=== PATIENT | female | born 1950 | race African-American/Black ===

== ENCOUNTER 2017-04-10 15:07 | Inpatient (IN) | payer MEDICARE ==
[~2017-04-10] VITALS: Ht 157.5 cm; Wt 77.3 kg
[2017-04-10] VITALS (10 sets, daily range): BP systolic 81–109; BP diastolic 40–58
[2017-04-10] MEDS ORDERED: GABAPENTIN100 MG ORAL (15:20)
[2017-04-10] MEDS ORDERED: FUROSEMIDE40 MG ORAL (15:20)
[2017-04-10] MEDS ORDERED: ATORVASTATIN CA40 MG ORAL (15:20)
[2017-04-10] MEDS ORDERED: LEXAPRO10 MG ORAL (15:20)
[2017-04-10] MEDS ORDERED: MULTIVITAMINS1 EAC2 ORAL (15:20)
[2017-04-10] MEDS ORDERED: DOCUSATE SODIU100 MG ORAL (15:20)
[2017-04-10] MEDS ORDERED: AMLODIPINE BESY10 MG ORAL (15:20)
[2017-04-10] MEDS ORDERED: ISOSORBIDE MONO60 M1 PO (15:20)
[2017-04-10] MEDS ORDERED: RENVELA0.8 GM ORAL (15:20)
--- NOTE | 2017-04-10 16:01 | Emergency Room Report ---
History of Present Illness General Chief Complaint: General Complaint Source: Patient, Medical Record Present Illness HPI 66YOF BIBEMS from HD center after finishing dialysis c/o urinary incontinence and back pain, middle of LS spine Started after dialysis History of chronic LBP Denies chest pain, SOB, abd pain, nausea/vomiting Allergies: Coded Allergies: No Known Allergies (Unverified , 04/10/17) Patient History Past Medical History: renal disease Past Surgical History: none Pertinent Family History: none Social History: Denies: alcohol use, drug use, smoking Last Menstrual Period: na Now: No Immunizations: UTD Reviewed Nursing Documentation: PMH: Agreed, PSxH: Agreed Nursing Documentation-PMH Past Medical History: No History, Except For Hx Diabetes: Yes Hx Dialysis: Yes Review of Systems All Other Systems: negative except mentioned in HPI Physical Exam Vital Signs Date Time Temp Pulse Resp B/P Pulse Ox O2 Delivery O2 Flow Rate FiO2 04/10/17 14:59 99.9 104 20 144/108 95 Room Air Sp02 EP Interpretation: reviewed, normal General Appearance: normal inspection, well appearing, no apparent distress, alert, GCS 15, non-toxic Head: normocephalic, atraumatic Eyes: bilateral eye EOMI, bilateral eye PERRL ENT: normal ENT inspection, hearing grossly normal, normal voice Neck: normal inspection, full range of motion, supple, no bony tend Respiratory: normal inspection, lungs clear, normal breath sounds, no respiratory distress, no retraction, no wheezing Cardiovascular #1: regular rate, rhythm, no edema Gastrointestinal: normal inspection, normal bowel sounds, non tender, soft, no guarding, no hernia Genitourinary: no CVA tenderness Musculoskeletal: other - Portcath palpable thrill right upper extremity Neurologic: normal inspection, alert, oriented x3, responsive, clinical business manager III-XII nml as tested, motor strength/tone normal, speech normal Psychiatric: normal inspection, judgement/insight normal, mood/affect normal Skin: normal inspection, normal color, no rash Medical Decision Making Diagnostic Impression: Primary Impression: Low back pain Qualified Codes: M54.5 - Low back pain; G89.29 - Other chronic pain Additional Impressions: Dysuria UTI (urinary tract infection) Qualified Codes: N30.01 - Acute cystitis with hematuria Hypotension Qualified Codes: I95.9 - Hypotension, unspecified Sepsis Qualified Codes: A41.9 - Sepsis, unspecified organism ER Course LBP with dysuria, febrile Became hypotensive after IV Vanc Sepsis criteria No leuks. hypotension fluid responsive No AG. K normal. elevated serumCr likely baseline S/p HD today Empiric Abx, tylenol given Blood, Urine Cx pending Has cath on right upper ext, no obvious infection Multiple attempts by registration to identify patient's insurance Patient endorsing different names, states she has Medicare, cant find in database Registration allocated patient to self-pay given delay in admission Endorsed to Dr Ko as panel for tele admit at 909pm EKG Diagnostic Results Rate: tachycardiac Rhythm: NSR ST Segments: other - TWI in AVL, 1 ASA given to the pt in ED: No Rhythm Strip Diag. Results EP Interpretation: yes Rate: 108 Last Vital Signs Date Time Temp Pulse Resp B/P Pulse Ox O2 Delivery O2 Flow Rate FiO2 04/10/17 14:59 99.9 104 20 144/108 95 Room Air Status: improved Disposition: ADMITTED INPATIENT ELEANOR SOARES M.D. Apr 10, 2017 16:01
[2017-04-10] MEDS ORDERED: Morphine Sulfate 2mg/ml Inj IVP ONE (16:15)
[2017-04-10 16:29] LABS: MEAN CORPUSCULAR HEMOGLOBIN 34.6 PG (27.0-31.0); MEAN CORPUSCULAR VOLUME 99 FL (80-99); MEAN PLATELET VOLUME 6.3 FL (6.5-10.1); PLATELET COUNT 206 K/UL (150-450); RED BLOOD COUNT 3.21 M/UL (4.20-5.40); WHITE BLOOD COUNT 8.3 K/UL (4.8-10.8)
[2017-04-10 16:30] LABS: BASOPHILS % (AUTO) 0.6 % (0.0-2.0); EOSINOPHILS % (AUTO) 0.1 % (0.0-3.0); LYMPHOCYTES % (AUTO) 6.3 % (20.0-45.0); MONOCYTES % (AUTO) 2.6 % (1.0-10.0); NEUTROPHILS % (AUTO) 90.4 % (45.0-75.0)
[2017-04-10] MEDS ORDERED: Vancomycin 1 GM in NS 275 ML IV ONE (16:30)
[2017-04-10 16:42] LABS: ALBUMIN/GLOBULIN RATIO 1.1 (1.0-2.7); CALCIUM 9.4 mg/dL (8.6-10.2); CREATININE 3.4 mg/dL (0.5-0.9); GLOMERULAR FILTRATION RATE 13.6 mL/min (>60); POTASSIUM 3.6 mEQ/L (3.4-4.9); TOTAL PROTEIN 8.4 g/dL (6.6-8.7)
[2017-04-10] MEDS ORDERED: Vancomycin 1gm inj IVPB ONE (16:43)
[2017-04-10] MEDS ORDERED: Zosyn 4.5gm inj ONE (16:52)
[2017-04-10] MEDS ORDERED: NS 110 ML ONE (16:53)
[2017-04-10] MEDS ORDERED: NS 275 ML ONE (16:53)
[2017-04-10] MEDS ORDERED: Tubing IV Cassette IV ONE (16:53)
[2017-04-10 17:14] LABS: REFLEX LACTIC ACID YES OR NO YES
[2017-04-10 17:25] LABS: APPEARANCE,URINE VERY CLOUDY; KETONES,URINE NEGATIVE (NEGATIVE); LEUKOCYTE ESTERASE ,URINE 3+ (NEGATIVE); NITRITE,URINE NEGATIVE (NEGATIVE); PH,URINE 8 (4.5-8.0); PROTEIN,URINE 3+ (NEGATIVE); UROBILINOGEN,URINE 1 MG/DL (0.0-1.0)
[2017-04-10 17:46] LABS: RBC,URINE 0-2 /HPF (0 - 2); WBC,URINE TNTC /HPF (0 - 2)
[2017-04-10 17:47] LABS: BACTERIA,URINE MANY /HPF
[2017-04-10] MEDS ORDERED: Miralax 17gm pkt ORAL PRN (21:45)
[2017-04-10] MEDS ORDERED: Mylanta II UD 30ml ORAL PRN (21:45)
[2017-04-10] MEDS ORDERED: LORazepam Inj 2mg/ml 1ml IV PRN (21:45)
[2017-04-10] MEDS ORDERED: Morphine Sulfate 4mg/ml Inj IVP PRN (21:45)
[2017-04-10] MEDS ORDERED: Zolpidem 5mg tab ORAL PRN (21:45)
[2017-04-10] MEDS ORDERED: Piperacillin/Tazobactam 4.5 GM in NS 110 ML IV SCH ×4 (22:00)
[2017-04-11 00:21] VITALS: BP 106/59
[2017-04-11 04:28] VITALS: BP 110/59
[2017-04-11] MEDS: Morphine Sulfate 2mg/ml Inj IVP PRN (04:35)
[2017-04-11 08:15] VITALS: BP 97/50
--- NOTE | 2017-04-11 08:35 | Consultation ---
History of Present Illness General Date patient seen: Apr 11, 2017 Chief Complaint: General Complaint Present Illness Allergies: Coded Allergies: No Known Allergies (Unverified , 04/10/17) Medication History Scheduled Amlodipine Besylate* (Amlodipine Besylate*), 10 MG ORAL BID, (Reported) Atorvastatin Calcium* (Atorvastatin Calcium*), 80 MG ORAL BEDTIME, (Reported) Docusate Sodium* (Docusate Sodium*), 100 MG ORAL TWICE A DAY, (Reported) Escitalopram Oxalate* (Lexapro*), 5 MG ORAL DAILY, (Reported) Furosemide* (Lasix*), 40 MG ORAL TWICE A DAY, (Reported) Gabapentin* (Gabapentin*), 100 MG ORAL QHS, (Reported) Isosorbide Mononitrate (Isosorbide Mononitrate Er), 60 MG PO DAILY, (Reported) Multivitamins* (Multivitamins*), 1 TAB ORAL DAILY, (Reported) Sevelamer Carbonate* (Renvela*), 800 MG ORAL THREE TIMES A DAY, (Reported) Patient History Healthcare decision maker Resuscitation status Full Code Advanced Directive on File No Physical Exam Last 24 Hour Vital Signs Date Time Temp Pulse Resp B/P Pulse Ox O2 Delivery O2 Flow Rate FiO2 04/11/17 08:15 97.5 91 18 97/50 98 Room Air 04/11/17 05:05 98.1 04/11/17 04:28 98.0 87 20 110/59 98 Room Air 04/11/17 04:00 91 04/11/17 00:21 98.1 92 20 106/59 96 Room Air 04/11/17 00:00 91 04/10/17 23:00 98.5 94 16 97/44 100 Room Air 04/10/17 22:07 98.5 94 16 97/44 100 Room Air 04/10/17 21:30 98.5 92 16 102/51 100 Room Air 04/10/17 19:27 101.0 97 16 84/46 100 Room Air 04/10/17 19:05 100 18 81/40 100 Room Air 04/10/17 18:15 100.4 04/10/17 18:15 100.4 100 16 85/45 100 Room Air 04/10/17 18:00 101 16 89/43 100 Room Air 04/10/17 17:45 103 18 88/48 100 Room Air 04/10/17 17:30 106 18 89/45 99 Room Air 04/10/17 17:30 101.0 04/10/17 16:00 101.8 108 19 106/58 100 Room Air 04/10/17 15:25 112 20 109/58 100 Room Air 04/10/17 14:59 99.9 104 20 144/108 95 Room Air Intake and Output 04/10/17 04/11/17 19:00 07:00 Intake Total 295 ml Output Total 100 ml Balance 295 ml -100 ml Intake Oral 0 ml IV Total 295 ml Output Urine Total 100 ml # Voids 1 Laboratory Tests Test 04/10/17 15:55 04/10/17 16:40 04/10/17 18:25 White Blood Count 8.3 K/UL (4.8-10.8) Red Blood Count 3.21 M/UL (4.20-5.40) L Hemoglobin 11.1 G/DL (12.0-16.0) L Hematocrit 31.8 % (37.0-47.0) L Mean Corpuscular Volume 99 FL (80-99) Mean Corpuscular Hemoglobin 34.6 PG (27.0-31.0) H Mean Corpuscular Hemoglobin Concent 35.0 G/DL (32.0-36.0) Red Cell Distribution Width 15.0 % (11.6-14.8) H Platelet Count 206 K/UL (150-450) Mean Platelet Volume 6.3 FL (6.5-10.1) L Neutrophils (%) (Auto) 90.4 % (45.0-75.0) H Lymphocytes (%) (Auto) 6.3 % (20.0-45.0) L Monocytes (%) (Auto) 2.6 % (1.0-10.0) Eosinophils (%) (Auto) 0.1 % (0.0-3.0) Basophils (%) (Auto) 0.6 % (0.0-2.0) Sodium Level 136 mEQ/L (135-145) Potassium Level 3.6 mEQ/L (3.4-4.9) Chloride Level 91 mEQ/L (98-107) L Carbon Dioxide Level 31 mEQ/L (20-30) H Anion Gap 14 (5-15) Blood Urea Nitrogen 23 mg/dL (7-23) Creatinine 3.4 mg/dL (0.5-0.9) H Estimat Glomerular Filtration Rate 13.6 mL/min (>60) Glucose Level 91 mg/dL (74-106) Lactic Acid Level 2.70 mmol/L (0.66-2.22) H 2.30 mmol/L (0.66-2.22) H Calcium Level 9.4 mg/dL (8.6-10.2) Total Bilirubin 0.5 mg/dL (0.0-1.2) Aspartate Amino Transf (AST/SGOT) 16 U/L (5-40) Alanine Aminotransferase (ALT/SGPT) 12 U/L (3-33) Alkaline Phosphatase 151 U/L (35-104) H Total Protein 8.4 g/dL (6.6-8.7) Albumin 4.4 g/dL (3.5-5.2) Globulin 4.0 g/dL Albumin/Globulin Ratio 1.1 (1.0-2.7) Lipase 29 U/L (< 60) Urine Color Pale yellow Urine Appearance Very cloudy Urine pH 8 (4.5-8.0) Urine Specific [place] 1.010 (1.005-1.035) Urine Protein 3+ (NEGATIVE) H Urine Glucose (UA) Negative (NEGATIVE) Urine Ketones Negative (NEGATIVE) Urine Occult Blood 3+ (NEGATIVE) H Urine Nitrite Negative (NEGATIVE) Urine Bilirubin Negative (NEGATIVE) Urine Urobilinogen 1 MG/DL (0.0-1.0) H Urine Leukocyte Esterase 3+ (NEGATIVE) H Urine RBC 0-2 /HPF (0 - 2) Urine WBC Tntc /HPF (0 - 2) H Urine Squamous Epithelial Cells None /LPF (NONE/OCC) Urine Bacteria Many /HPF (NONE) H Microbiology Date/Time Source Procedure Growth Status 04/10/17 16:40 Urine,Clean Catch Urine Culture - Preliminary Resulted Height (Feet): 5 Height (Inches): 2.00 Weight (Pounds): 170 Medications Current Medications Medications (Trade) Dose Ordered Sig/Edda Route PRN Reason Start Time Stop Time Status Last Admin Dose Admin Acetaminophen (Tylenol) 650 mg Q4H PRN ORAL T>100.5 04/10/17 21:45 05/10/17 21:44 Al Hydroxide/Mg Hydroxide (Mylanta II) 30 ml Q6H PRN ORAL dyspepsia 04/10/17 21:45 05/10/17 21:44 Amlodipine Besylate (Norvasc) 10 mg Q12HR ORAL 04/11/17 09:00 05/11/17 08:59 Atorvastatin Calcium (Lipitor) 80 mg BEDTIME ORAL 04/11/17 22:30 05/11/17 22:29 Dextrose (Dextrose 50%) STAT PRN IV Hypoglycemia 04/10/17 21:45 05/10/17 21:44 Docusate Sodium (Colace) 100 mg TWICE A DAY ORAL 04/11/17 09:00 05/11/17 08:59 Escitalopram Oxalate (Lexapro) 5 mg DAILY ORAL 04/11/17 09:00 05/11/17 08:59 Furosemide (Lasix) 40 mg TWICE A DAY ORAL 04/11/17 09:00 05/11/17 08:59 Gabapentin (Neurontin) 100 mg QHS ORAL 04/11/17 21:00 05/11/17 20:59 Heparin Sodium (Porcine) (Heparin 5000 units/ml) 5,000 units EVERY 12 HOURS SUBQ 04/11/17 09:00 05/11/17 08:59 Insulin Aspart (NovoLOG) BEFORE MEALS AND HS SUBQ 04/11/17 11:30 05/11/17 11:29 Lorazepam (Ativan 2mg/ml 1ml) 0.5 mg Q4H PRN IV For Anxiety 04/10/17 21:45 04/17/17 21:44 Morphine Sulfate (Morphine Sulfate) 2 mg Q4H PRN IVP Moderate Pain (Pain Scale 4-6) 04/10/17 21:45 04/17/17 21:44 04/11/17 04:35 Morphine Sulfate (Morphine Sulfate) 4 mg Q4H PRN IVP Severe Pain (Pain Scale 7-10) 04/10/17 21:45 04/17/17 21:44 Multivitamins (Multivitamins) 1 tab DAILY ORAL 04/11/17 09:00 05/11/17 08:59 Ondansetron HCl (Zofran) 4 mg Q6H PRN IVP Nausea & Vomiting 04/10/17 21:45 05/10/17 21:44 Piperacillin Sod/ Tazobactam Sod/ Sodium Chloride (Zosyn/Sodium Chloride) 110 ml @ 220 mls/hr STAT IV 04/10/17 22:00 04/17/17 21:59 04/10/17 16:55 Polyethylene Glycol (Miralax) 17 gm HSPRN PRN ORAL Constipation 04/10/17 21:45 05/10/17 21:44 Sevelamer Carbonate (Renvela) 800 mg THREE TIMES A DAY ORAL 04/11/17 09:00 05/11/17 08:59 Zolpidem Tartrate (Ambien) 5 mg HSPRN PRN ORAL Insomnia 04/10/17 21:45 05/10/17 21:44 Assessment/Plan Assessment/Plan (1) Lumbar DDD (2) Lumbar Spondylosis (3) Lumbar Radiculopathy (4) Muscle spasm (5) ESRD on dialysis seen dictated PATSY MORRISON Apr 11, 2017 08:35
[2017-04-11] MEDS ORDERED: Norco 5mg/325mg tab ORAL PRN (09:00)
[2017-04-11] MEDS ORDERED: Methocarbamol 500mg tab ORAL PRN (09:00)
[2017-04-11] MEDS ORDERED: Furosemide 40mg tab ORAL SCH (09:00)
--- NOTE | 2017-04-11 09:11 | Consultation ---
Consult Note Consult Note asked to evaluate for dialysis management 66YOF BIBEMS from HD center after finishing dialysis c/o urinary incontinence and back pain, middle of LS spine Started after dialysis History of chronic LBP Denies chest pain, SOB, abd pain, nausea/vomiting Past Medical History: renal disease Past Medical History: No History, Except For Hx Diabetes: Yes Hx Dialysis: Yes h/o breast cancer - left mastectomy has a rosamaria cath in right arm has a permacath in right chest Assessment/Plan ESRD on HD M W Fr UTI Intractible back pain HypoTension h/o Breast Ca s/p Chemo and left mastectomy Plan: HD in Am adjust BP meds- WIll review [facility] records for further info ROLANDO AN Apr 11, 2017 09:11
[2017-04-11 09:22] LABS: CALCIUM 8.8 mg/dL (8.6-10.2); CREATININE 4.5 mg/dL (0.5-0.9); GLOMERULAR FILTRATION RATE 11.9 mL/min (>60); POTASSIUM 4.8 mEQ/L (3.4-4.9); TOTAL PROTEIN 6.6 g/dL (6.6-8.7)
[2017-04-11 09:23] LABS: THYROID STIMULATING HORMONE 1.16 uIU/mL (0.300-4.500)
[2017-04-11 09:28] LABS: BASOPHILS % (AUTO) 0.5 % (0.0-2.0); EOSINOPHILS % (AUTO) 1.2 % (0.0-3.0); LYMPHOCYTES % (AUTO) 12.3 % (20.0-45.0); MEAN CORPUSCULAR HEMOGLOBIN 32.9 PG (27.0-31.0); MEAN CORPUSCULAR HGB CONC 32.3 G/DL (32.0-36.0); MEAN CORPUSCULAR VOLUME 102 FL (80-99); MEAN PLATELET VOLUME 6.7 FL (6.5-10.1); MONOCYTES % (AUTO) 6.3 % (1.0-10.0); NEUTROPHILS % (AUTO) 79.6 % (45.0-75.0); PLATELET COUNT 240 K/UL (150-450); RED BLOOD COUNT 2.93 M/UL (4.20-5.40); RED CELL DISTRIBUTION WIDTH 15.1 % (11.6-14.8); WHITE BLOOD COUNT 17.7 K/UL (4.8-10.8)
[2017-04-11] MEDS: Escitalopram Oxalate 5mg tab ORAL SCH (09:31)
[2017-04-11] MEDS: Renvela 800mg Pkt ORAL SCH ×3 (09:31→17:34)
[2017-04-11] MEDS: Docusate 100mg cap ORAL SCH ×2 (09:32→17:34)
[2017-04-11] MEDS: Heparin 5000 units/ml inj SUBQ SCH ×2 (09:38→21:21)
[2017-04-11] MEDS ORDERED: Morphine Sulfate 4mg/ml Inj IVP PRN (09:45)
--- NOTE | 2017-04-11 09:50 | Diagnostic Imaging Report ---
Indication: SOB Technique: One view of the chest Comparison: none Findings: The heart is borderline enlarged. The aorta is tortuous and calcified. Lungs and pleural spaces are clear. There is a right chest tunneled dialysis catheter and right arm PICC. Left axillary surgical clips are noted. Impression: Borderline cardiomegaly No acute cardiopulmonary process
[2017-04-11 11:30] VITALS: BP 101/58
[2017-04-11] MEDS: NovoLOG Insulin Flexpen SUBQ SCH ×3 (12:02→21:22)
--- NOTE | 2017-04-11 12:35 | History and Physical ---
History of Present Illness General Date patient seen: Apr 11, 2017 Reason for Hospitalization: General Complaint Present Illness HPI 66 year old female with hx of ESRF on HD, HTN was brought in [facility] HD center after finishing dialysis c/o urinary incontinence and back pain, Denies chest pain, SOB, abd pain, nausea/vomiting. She was febrile and hypotensive in ER. She was diagnosed to have sepsis and admitted to Telemetry for further evaluation. Allergies: Coded Allergies: No Known Allergies (Unverified , 04/10/17) Medication History Scheduled Amlodipine Besylate* (Amlodipine Besylate*), 10 MG ORAL BID, (Reported) Atorvastatin Calcium* (Atorvastatin Calcium*), 80 MG ORAL BEDTIME, (Reported) Docusate Sodium* (Docusate Sodium*), 100 MG ORAL TWICE A DAY, (Reported) Escitalopram Oxalate* (Lexapro*), 5 MG ORAL DAILY, (Reported) Furosemide* (Lasix*), 40 MG ORAL TWICE A DAY, (Reported) Gabapentin* (Gabapentin*), 100 MG ORAL QHS, (Reported) Isosorbide Mononitrate (Isosorbide Mononitrate Er), 60 MG PO DAILY, (Reported) Multivitamins* (Multivitamins*), 1 TAB ORAL DAILY, (Reported) Sevelamer Carbonate* (Renvela*), 800 MG ORAL THREE TIMES A DAY, (Reported) Patient History Healthcare decision maker Resuscitation status Full Code Advanced Directive on File No Past Medical/Surgical History Past Medical/Surgical History: (1) ESRF (end stage renal failure) (2) HTN (hypertension) Review of Systems All Other Systems: negative except mentioned in HPI Physical Exam General Appearance: WD/WN, no apparent distress Lines, tubes and drains: peripheral HEENT: normocephalic Neck: non-tender, normal alignment Respiratory/Chest: chest wall non-tender, lungs clear Cardiovascular/Chest: normal peripheral pulses Genitourinary/Rectal: normal genital exam Extremities: normal range of motion, non-tender Neurologic: marking clerk II-XII grossly normal Lymphatic: anterior cervical Last 24 Hour Vital Signs Date Time Temp Pulse Resp B/P Pulse Ox O2 Delivery O2 Flow Rate FiO2 04/11/17 10:00 97/53 04/11/17 08:15 97.5 91 18 97/50 98 Room Air 04/11/17 05:05 98.1 04/11/17 04:28 98.0 87 20 110/59 98 Room Air 04/11/17 04:00 91 04/11/17 00:21 98.1 92 20 106/59 96 Room Air 04/11/17 00:00 91 04/10/17 23:00 98.5 94 16 97/44 100 Room Air 04/10/17 22:07 98.5 94 16 97/44 100 Room Air 04/10/17 21:30 98.5 92 16 102/51 100 Room Air 04/10/17 19:27 101.0 97 16 84/46 100 Room Air 04/10/17 19:05 100 18 81/40 100 Room Air 04/10/17 18:15 100.4 04/10/17 18:15 100.4 100 16 85/45 100 Room Air 04/10/17 18:00 101 16 89/43 100 Room Air 04/10/17 17:45 103 18 88/48 100 Room Air 04/10/17 17:30 106 18 89/45 99 Room Air 04/10/17 17:30 101.0 04/10/17 16:00 101.8 108 19 106/58 100 Room Air 04/10/17 15:25 112 20 109/58 100 Room Air 04/10/17 14:59 99.9 104 20 144/108 95 Room Air Intake and Output 04/10/17 04/11/17 19:00 07:00 Intake Total 295 ml Output Total 100 ml Balance 295 ml -100 ml Intake Oral 0 ml IV Total 295 ml Output Urine Total 100 ml # Voids 1 Laboratory Tests Test 04/10/17 15:55 04/10/17 16:40 04/10/17 18:25 04/11/17 08:15 White Blood Count 8.3 K/UL (4.8-10.8) 17.7 K/UL (4.8-10.8) #H Red Blood Count 3.21 M/UL (4.20-5.40) L 2.93 M/UL (4.20-5.40) L Hemoglobin 11.1 G/DL (12.0-16.0) L 9.6 G/DL (12.0-16.0) L Hematocrit 31.8 % (37.0-47.0) L 29.9 % (37.0-47.0) L Mean Corpuscular Volume 99 FL (80-99) 102 FL (80-99) H Mean Corpuscular Hemoglobin 34.6 PG (27.0-31.0) H 32.9 PG (27.0-31.0) H Mean Corpuscular Hemoglobin Concent 35.0 G/DL (32.0-36.0) 32.3 G/DL (32.0-36.0) Red Cell Distribution Width 15.0 % (11.6-14.8) H 15.1 % (11.6-14.8) H Platelet Count 206 K/UL (150-450) 240 K/UL (150-450) Mean Platelet Volume 6.3 FL (6.5-10.1) L 6.7 FL (6.5-10.1) Neutrophils (%) (Auto) 90.4 % (45.0-75.0) H 79.6 % (45.0-75.0) H Lymphocytes (%) (Auto) 6.3 % (20.0-45.0) L 12.3 % (20.0-45.0) L Monocytes (%) (Auto) 2.6 % (1.0-10.0) 6.3 % (1.0-10.0) Eosinophils (%) (Auto) 0.1 % (0.0-3.0) 1.2 % (0.0-3.0) Basophils (%) (Auto) 0.6 % (0.0-2.0) 0.5 % (0.0-2.0) Sodium Level 136 mEQ/L (135-145) 138 mEQ/L (135-145) Potassium Level 3.6 mEQ/L (3.4-4.9) 4.8 mEQ/L (3.4-4.9) Chloride Level 91 mEQ/L (98-107) L 98 mEQ/L (98-107) Carbon Dioxide Level 31 mEQ/L (20-30) H 27 mEQ/L (20-30) Anion Gap 14 (5-15) 13 (5-15) Blood Urea Nitrogen 23 mg/dL (7-23) 29 mg/dL (7-23) H Creatinine 3.4 mg/dL (0.5-0.9) H 4.5 mg/dL (0.5-0.9) H Estimat Glomerular Filtration Rate 13.6 mL/min (>60) 11.9 mL/min (>60) Glucose Level 91 mg/dL (74-106) 175 mg/dL (74-106) H Lactic Acid Level 2.70 mmol/L (0.66-2.22) H 2.30 mmol/L (0.66-2.22) H Calcium Level 9.4 mg/dL (8.6-10.2) 8.8 mg/dL (8.6-10.2) Total Bilirubin 0.5 mg/dL (0.0-1.2) 0.5 mg/dL (0.0-1.2) Aspartate Amino Transf (AST/SGOT) 16 U/L (5-40) 19 U/L (5-40) Alanine Aminotransferase (ALT/SGPT) 12 U/L (3-33) 10 U/L (3-33) Alkaline Phosphatase 151 U/L (35-104) H 120 U/L (35-104) H Total Protein 8.4 g/dL (6.6-8.7) 6.6 g/dL (6.6-8.7) Albumin 4.4 g/dL (3.5-5.2) 3.3 g/dL (3.5-5.2) L Globulin 4.0 g/dL 3.3 g/dL Albumin/Globulin Ratio 1.1 (1.0-2.7) 1.0 (1.0-2.7) Lipase 29 U/L (< 60) Urine Color Pale yellow Urine Appearance Very cloudy Urine pH 8 (4.5-8.0) Urine Specific [place] 1.010 (1.005-1.035) Urine Protein 3+ (NEGATIVE) H Urine Glucose (UA) Negative (NEGATIVE) Urine Ketones Negative (NEGATIVE) Urine Occult Blood 3+ (NEGATIVE) H Urine Nitrite Negative (NEGATIVE) Urine Bilirubin Negative (NEGATIVE) Urine Urobilinogen 1 MG/DL (0.0-1.0) H Urine Leukocyte Esterase 3+ (NEGATIVE) H Urine RBC 0-2 /HPF (0 - 2) Urine WBC Tntc /HPF (0 - 2) H Urine Squamous Epithelial Cells None /LPF (NONE/OCC) Urine Bacteria Many /HPF (NONE) H Thyroid Stimulating Hormone (TSH) 1.160 uIU/mL (0.300-4.500) Microbiology Date/Time Source Procedure Growth Status 04/10/17 16:40 Urine,Clean Catch Urine Culture - Preliminary Resulted Height (Feet): 5 Height (Inches): 2.00 Weight (Pounds): 170 Medications Current Medications Medications (Trade) Dose Ordered Sig/Edda Route PRN Reason Start Time Stop Time Status Last Admin Dose Admin Acetaminophen (Tylenol) 650 mg Q4H PRN ORAL T>100.5 04/10/17 21:45 05/10/17 21:44 Acetaminophen/ Hydrocodone Bitart ([place] 5/325) 1 tab Q4H PRN ORAL Severe Pain (Pain Scale 7-10) 04/11/17 09:00 04/18/17 08:59 04/11/17 12:11 Amlodipine Besylate (Norvasc) 10 mg DAILY ORAL 04/11/17 10:00 05/11/17 09:59 Atorvastatin Calcium (Lipitor) 80 mg BEDTIME ORAL 04/11/17 22:30 05/11/17 22:29 Dextrose (Dextrose 50%) STAT PRN IV Hypoglycemia 04/10/17 21:45 05/10/17 21:44 Docusate Sodium (Colace) 100 mg TWICE A DAY ORAL 04/11/17 09:00 05/11/17 08:59 04/11/17 09:32 Escitalopram Oxalate (Lexapro) 5 mg DAILY ORAL 04/11/17 09:00 05/11/17 08:59 04/11/17 09:31 Gabapentin (Neurontin) 100 mg QHS ORAL 04/11/17 21:00 05/11/17 20:59 Heparin Sodium (Porcine) (Heparin 5000 units/ml) 5,000 units EVERY 12 HOURS SUBQ 04/11/17 09:00 05/11/17 08:59 04/11/17 09:38 Insulin Aspart (NovoLOG) BEFORE MEALS AND HS SUBQ 04/11/17 11:30 05/11/17 11:29 04/11/17 12:02 Lorazepam (Ativan 2mg/ml 1ml) 0.5 mg Q4H PRN IV For Anxiety 04/10/17 21:45 04/17/17 21:44 Methocarbamol (Robaxin) 500 mg Q8H PRN ORAL muscle spasm 04/11/17 09:00 05/11/17 08:59 Morphine Sulfate (Morphine Sulfate) 2 mg Q4H PRN IVP Moderate Pain (Pain Scale 4-6) 04/10/17 21:45 04/17/17 21:44 04/11/17 04:35 Morphine Sulfate (Morphine Sulfate) 4 mg Q4H PRN IVP breakthrough Pain 04/11/17 09:45 04/18/17 09:44 Multivitamins (Multivitamins) 1 tab DAILY ORAL 04/11/17 09:00 05/11/17 08:59 04/11/17 09:31 Ondansetron HCl (Zofran) 4 mg Q6H PRN IVP Nausea & Vomiting 04/10/17 21:45 05/10/17 21:44 Pantoprazole (Protonix) 40 mg DAILY ORAL 04/11/17 10:00 05/11/17 09:59 04/11/17 11:59 Polyethylene Glycol (Miralax) 17 gm HSPRN PRN ORAL Constipation 04/10/17 21:45 05/10/17 21:44 Sevelamer Carbonate (Renvela) 800 mg THREE TIMES A DAY ORAL 04/11/17 09:00 05/11/17 08:59 04/11/17 09:31 Zolpidem Tartrate (Ambien) 5 mg HSPRN PRN ORAL Insomnia 04/10/17 21:45 05/10/17 21:44 Assessment/Plan Problem List: (1) Sepsis ICD Codes: A41.9 - Sepsis, unspecified organism SNOMED: 00209209 Qualifiers: Qualified Codes: A41.9 - Sepsis, unspecified organism (2) UTI (urinary tract infection) ICD Codes: N39.0 - Urinary tract infection, site not specified SNOMED: 90726990 Qualifiers: Qualified Codes: N30.01 - Acute cystitis with hematuria (3) Hypotension ICD Codes: I95.9 - Hypotension, unspecified SNOMED: 40921480 Qualifiers: Qualified Codes: I95.9 - Hypotension, unspecified (4) ESRF (end stage renal failure) ICD Codes: N18.6 - End stage renal disease SNOMED: 80256966 (5) Low back pain ICD Codes: M54.5 - Low back pain SNOMED: 696530936 Qualifiers: Qualified Codes: M54.5 - Low back pain; G89.29 - Other chronic pain (6) HTN (hypertension) ICD Codes: I10 - Essential (primary) hypertension SNOMED: 28178641 Assessment/Plan pancultures IV abx HD by nephrology pain management monitor BP hold antihypertensives for bp less than 130 dvt prophylaxis. MICHAEL YEBOAH Apr 11, 2017 12:34
--- NOTE | 2017-04-11 15:53 | Diagnostic Imaging Report ---
Indication: PAIN Technique: 4 views of the lumbar spine Comparison: None Findings: Bony alignment is normal. Vertebral body heights are preserved. Disc spaces are preserved. Pedicles are intact. Sacral arches are preserved. Sacroiliac joint spaces are preserved. There is facet degeneration at L4-5 Impression: No acute process Mild degenerative change
[2017-04-11 16:27] VITALS: BP 141/70
--- NOTE | 2017-04-11 16:49 | Cardiology Report ---
APPROVED REPORT EKG Measurement Heart [id number] Sinus tachycardia Biatrial enlargement Left axis deviation Anterior infarct, age undetermined T wave abnormality, consider lateral ischemia Abnormal ECG
[2017-04-11 20:21] VITALS: BP 100/56
[2017-04-11] MEDS ORDERED: Atorvastatin 80mg tab ORAL SCH (22:30)
[2017-04-12 00:22] VITALS: BP 113/63
[2017-04-12 04:20] VITALS: BP 114/65
--- NOTE | 2017-04-12 04:45 | Consultation ---
DATE OF CONSULTATION: 04/11/2017 PAIN MANAGEMENT CONSULTATION CONSULTING PHYSICIAN: Soraida Oliveira M.D. REFERRING PHYSICIAN: Larry Ko M.D. PHYSICIAN FREIGHT CLAIM INVESTIGATOR: Barbara Ayala CHIEF COMPLAINT: Back pain. HISTORY OF PRESENT ILLNESS: The patient is a 67-year-old female, who has been seen for initial comprehensive pain management consultation here in [facility] in the telemetry floor. At this time, the patient has been admitted under the care of Dr. Ko due to sepsis. The patient reports that she has been having low back pain for the past year, however, over the past month in the last 2 days, it has become constant, describing the pain as a 10/10 pressure, radiating down bilateral lower extremities, increasing with sitting and reducing with standing. The patient reports that she has end-stage renal disease, on dialysis, reports that the pain worsens after dialysis and was admitted. At this time, she is on morphine 3 to 4 mg IV every 4 hours as needed for dxcvwony-gi-bsojga pain. At this time, we were consulted so that the patient would have adequate pain control while here in the hospital for fast recovery. PAST MEDICAL HISTORY: End-stage renal disease, coronary artery disease, diabetes mellitus, and hypertension. PAST SURGICAL HISTORY: Laparotomy and knee surgery. ALLERGIES: No known drug allergies. MEDICATIONS: Amlodipine, atorvastatin, docusate, Lexapro, Neurontin, multivitamin, and Dahlen. SOCIAL HISTORY: Denies smoking, tobacco, drinking alcohol, and IV drug abuse. REVIEW OF SYSTEMS: Denies rash, fever, chills, sweating, dizziness, drowsiness, blurred vision, sore throat, or change in her weight. No shortness of breath or chest pain. No nausea, vomiting, diarrhea, or blood in the stool or urine. No bowel or bladder incontinence. No dysuria. She is complaining of low back pain. PHYSICAL EXAMINATION: GENERAL: Alert, awake, and oriented. VITAL SIGNS: Blood pressure 97/50, heart rate is 91, oxygen saturation 98%, respirations 18, and temperature 97.5 degrees Fahrenheit. Height is 5 feet and weight is 170 pounds. HEENT: PERRLA. NECK: Range of motion is full in all directions. No tenderness to paracervical muscles. No adenopathy. LUNGS: Clear. HEART: Regular. ABDOMEN: Obese. BACK: Range of motion is decreased due to the patient's condition. Tenderness to paraspinal muscles, trapezius, or rhomboid muscles. EXTREMITIES: Upper extremity range of motion is full in all directions. Motor is intact. No cyanosis. No clubbing. No edema. Sensory is intact. Reflexes are not obtainable. No adenopathy. Lower extremity range of motion is decreased due to the patient's pain and condition with motor being 4/5 in all muscles bilaterally. No cyanosis. No clubbing. Sensory is intact. Reflexes are not obtainable. No adenopathy. ASSESSMENT AND PLAN: This is a 67-year-old female with lumbar degenerative disease, lumbar spondylosis and radiculopathy, muscle spasm, and end-stage renal disease, on hemodialysis. Recently continued on morphine 2 mg IV every 4 hours as needed for moderate pain, morphine 4 mg IV will be changed to every 4 hours for breakthrough pain. We will start the patient on Atalissa 5/325 mg tablet every 6 hours as needed for severe pain and Robaxin 500 mg tablet every 8 hours as needed for muscle spasm. We will order an x-ray of the lumbar spine to rule out any further pathology in the lower back. The patient was discussed with Dr. Oliveira and Dr. Oliveira concurred. We will follow the patient. Thank you very much for the courtesy of this consultation. Soraida Oliveira M.D. YARA Ayala DR: JOHANNA JOB#: [id number] CC: ANTOINE
[2017-04-12] MEDS: NovoLOG Insulin Flexpen SUBQ SCH ×4 (06:30→22:16)
[2017-04-12 08:29] VITALS: BP 128/70
--- NOTE | 2017-04-12 08:39 | General Progress Note ---
Assessment/Plan Assessment/Plan (1) Lumbar DDD (2) Lumbar Spondylosis (3) Lumbar Radiculopathy (4) Muscle spasm (5) ESRD on dialysis We will continue Morphine and [place] as needed. D/w Dr. Oliveira and he concurred. Subjective Date patient seen: Apr 12, 2017 Time patient seen: 07:15 Constitutional: Reports: weakness HEENT: Reports: no symptoms Cardiovascular: Reports: no symptoms Respiratory: Reports: no symptoms Gastrointestinal/Abdominal: Reports: no symptoms Genitourinary: Reports: no symptoms Neurologic/Psychiatric: Reports: weakness Endocrine: Reports: no symptoms Hematologic/Lymphatic: Reports: no symptoms Allergies: Coded Allergies: No Known Allergies (Unverified , 04/10/17) Subjective Pt continues to have pain which has been tolerated on the Morphine and [place] as needed. Xray was reviewed with pt. She will be having HD today. Objective Last 24 Hour Vital Signs Date Time Temp Pulse Resp B/P Pulse Ox O2 Delivery O2 Flow Rate FiO2 04/12/17 08:29 97.0 80 18 128/70 97 Room Air 04/12/17 04:20 97.7 80 20 114/65 100 Room Air 04/12/17 04:00 80 04/12/17 00:22 97.0 94 20 113/63 100 Room Air 04/12/17 00:00 83 04/11/17 20:21 97.9 80 20 100/56 98 Room Air 04/11/17 20:00 80 04/11/17 16:27 97.5 82 18 141/70 97 Room Air 04/11/17 12:00 80 04/11/17 11:30 97.8 80 20 101/58 96 Room Air 04/11/17 10:00 97/53 Intake and Output 04/11/17 04/12/17 19:00 07:00 Intake Total 360 ml Output Total 100 ml Balance 360 ml -100 ml Intake Oral 360 ml Output Urine Total 100 ml # Voids 1 1 Height (Feet): 5 Height (Inches): 2.00 Weight (Pounds): 176 General Appearance: no apparent distress, alert EENT: PERRL/EOMI, normal ENT inspection Neck: normal alignment, supple Cardiovascular: normal rate, regular rhythm Respiratory/Chest: lungs clear, normal breath sounds Abdomen: non tender, soft Extremities: non-tender Edema: trace edema Neurologic: alert, oriented x 3 Skin: warm/dry Objective Procedure: XRAY L Spine Min 4v Indication: PAIN Technique: 4 views of the lumbar spine Comparison: None Findings: Bony alignment is normal. Vertebral body heights are preserved. Disc spaces are preserved. Pedicles are intact. Sacral arches are preserved. Sacroiliac joint spaces are preserved. There is facet degeneration at L4-5 Impression: No acute process Mild degenerative change PATSY MORRISON Apr 12, 2017 08:39
[2017-04-12 08:54] LABS: BASOPHILS % (AUTO) 0.6 % (0.0-2.0); EOSINOPHILS % (AUTO) 2.4 % (0.0-3.0); LYMPHOCYTES % (AUTO) 25.6 % (20.0-45.0); MEAN CORPUSCULAR HEMOGLOBIN 32.7 PG (27.0-31.0); MEAN CORPUSCULAR HGB CONC 31.8 G/DL (32.0-36.0); MEAN CORPUSCULAR VOLUME 103 FL (80-99); MEAN PLATELET VOLUME 6.4 FL (6.5-10.1); MONOCYTES % (AUTO) 9.7 % (1.0-10.0); NEUTROPHILS % (AUTO) 61.8 % (45.0-75.0); PLATELET COUNT 262 K/UL (150-450); RED BLOOD COUNT 2.99 M/UL (4.20-5.40); RED CELL DISTRIBUTION WIDTH 15.2 % (11.6-14.8); WHITE BLOOD COUNT 12.3 K/UL (4.8-10.8)
[2017-04-12] MEDS ORDERED: Dyna-Hex 2% Top Sol 8oz TOPIC SCH (09:00)
[2017-04-12 09:16] LABS: ALANINE AMINOTRANSFERASE 10 U/L (3-33); ANION GAP 12 (5-15); ASPARTATE AMINO TRANSFERASE 18 U/L (5-40); CALCIUM 10.3 mg/dL (8.6-10.2); CARBON DIOXIDE 27 mEQ/L (20-30); CHLORIDE 95 mEQ/L (98-107); CHOLESTEROL 249 mg/dL (< 200); CHOLESTEROL/HDL RATIO 6.9 (3.3-4.4); CREATININE 5.2 mg/dL (0.5-0.9); CRP QUANT 7.7 mg/dL (< 0.5); GLOMERULAR FILTRATION RATE 10.1 mL/min (>60); HEMOLYSIS 3; LDL CHOLESTEROL (CALC.) 167 mg/dL (60-99); MAGNESIUM 1.9 mg/dL (1.7-2.5); PHOSPHORUS 5.1 mg/dL (2.5-4.8); SODIUM 134 mEQ/L (135-145); TOTAL PROTEIN 6.8 g/dL (6.6-8.7)
[2017-04-12 09:18] LABS: FERRITIN 1285 ng/mL (13-150); INR 1.1 (0.9-1.1); PROTHROMBIN TIME 11.2 SEC (9.30-11.50); THYROID STIMULATING HORMONE 0.887 uIU/mL (0.300-4.500)
[2017-04-12 09:24] LABS: HEMOLYSIS 2; IRON 65 ug/dL (37-145); TOTAL IRON BINDING CAPACITY 148 ug/dL (250-400)
[2017-04-12 09:51] LABS: HEMOGLOBIN A1C 5.6 % (< 6.0)
[2017-04-12 10:32] LABS: ERYTHROCYTE SEDIMENTATION RATE 67 MM/HR (0-30); PATH BLOOD SMEAR/OMC SENT TO PATHOLOGIST
[2017-04-12 10:51] LABS: RETICULOCYTE COUNT 2.7 % (0.0-2.0)
[2017-04-12 11:19] LABS: BAND NEUTROPHILS % (MANUAL) 0 % (0-8); BASOPHILS % (MANUAL) 1 % (0-2); EOSINOPHILS % (MANUAL) 2 % (0-3); LYMPHOCYTES % (MANUAL) 24 % (20-45); NEUTROPHILS % (MANUAL) 65 % (45-75); PLATELET ESTIMATE ADEQUATE; PLATELET MORPHOLOGY NORMAL; TOTAL CELLS COUNTED 100
[2017-04-12 11:20] LABS: ANISOCYTOSIS 1+
[2017-04-12] MEDS: Docusate 100mg cap ORAL SCH ×2 (12:04→18:37)
[2017-04-12] MEDS: Escitalopram Oxalate 5mg tab ORAL SCH (12:05)
[2017-04-12] MEDS: Heparin 5000 units/ml inj SUBQ SCH ×2 (12:10→22:15)
[2017-04-12] MEDS: Renvela 800mg Pkt ORAL SCH ×3 (12:12→18:37)
[2017-04-12 12:14] VITALS: BP 124/66
--- NOTE | 2017-04-12 14:21 | General Progress Note ---
Assessment/Plan Status: stable Status Narrative Currently on HD , tolerating well. . Assessment/Plan Status; ESRD on HD M W Fr UTI Intractible back pain HypoTension h/o Breast Ca s/p Chemo and left mastectomy Plan: HD in process- adjust BP meds- Per PMD , consultants Subjective ROS Limited/Unobtainable: No Allergies: Coded Allergies: No Known Allergies (Unverified , 04/10/17) Objective Last 24 Hour Vital Signs Date Time Temp Pulse Resp B/P Pulse Ox O2 Delivery O2 Flow Rate FiO2 04/12/17 12:14 97.0 75 18 124/66 98 Room Air 04/12/17 12:00 88 04/12/17 11:10 Room Air 04/12/17 08:29 97.0 80 18 128/70 97 Room Air 04/12/17 08:25 Room Air 04/12/17 08:00 84 04/12/17 04:20 97.7 80 20 114/65 100 Room Air 04/12/17 04:00 80 04/12/17 00:22 97.0 94 20 113/63 100 Room Air 04/12/17 00:00 83 04/11/17 20:21 97.9 80 20 100/56 98 Room Air 04/11/17 20:00 80 04/11/17 16:27 97.5 82 18 141/70 97 Room Air Intake and Output 04/11/17 04/12/17 19:00 07:00 Intake Total 360 ml Output Total 100 ml Balance 360 ml -100 ml Intake Oral 360 ml Output Urine Total 100 ml # Voids 1 1 Laboratory Tests 04/12/17 08:00: White Blood Count 12.3H, Red Blood Count 2.99L, Hemoglobin 9.8L, Hematocrit 30.8L, Mean Corpuscular Volume 103H, Mean Corpuscular Hemoglobin 32.7H, Mean Corpuscular Hemoglobin Concent 31.8L, Red Cell Distribution Width 15.2H, Platelet Count 262, Mean Platelet Volume 6.4L, Neutrophils (%) (Auto) 61.8, Lymphocytes (%) (Auto) 25.6, Monocytes (%) (Auto) 9.7, Eosinophils (%) (Auto) 2.4, Basophils (%) (Auto) 0.6, Differential Total Cells Counted 100, Neutrophils % (Manual) 65, Lymphocytes % (Manual) 24, Monocytes % (Manual) 8, Eosinophils % (Manual) 2, Basophils % (Manual) 1, Band Neutrophils 0, Platelet Estimate Adequate, Platelet Morphology Normal, Anisocytosis 1+, Erythrocyte Sedimentation Rate 67H, Reticulocyte Count 2.7H, Prothrombin Time 11.2, Prothromb Time International Ratio 1.1, Activated Partial Thromboplast Time 29, Sodium Level 134L, Potassium Level 5.0H, Chloride Level 95L, Carbon Dioxide Level 27, Anion Gap 12, Blood Urea Nitrogen 39H, Creatinine 5.2H, Estimat Glomerular Filtration Rate 10.1, Glucose Level 111H, Hemoglobin A1c 5.6, Calcium Level 10.3H, Phosphorus Level 5.1H, Magnesium Level 1.9, Iron Level 65, Total Iron Binding Capacity 148L, Percent Iron Saturation 44, Unsaturated Iron Binding 83L, Ferritin 1285H, Total Bilirubin 0.4, Gamma Glutamyl Transpeptidase 28, Aspartate Amino Transf (AST/SGOT) 18, Alanine Aminotransferase (ALT/SGPT) 10 , Alkaline Phosphatase 118H, Lactate Dehydrogenase 182, Total Creatine Kinase 224H, C-Reactive Protein, Quantitative 7.7H, Pro-B-Type Natriuretic Peptide 8234H, Total Protein 6.8, Albumin 3.4L, Globulin 3.4, Albumin/Globulin Ratio 1.0 , Triglycerides Level 232H, Cholesterol Level 249H, LDL Cholesterol 167H, HDL Cholesterol 36, Cholesterol/HDL Ratio 6.9H, Carcinoembryonic Antigen 3.8H, Vitamin B12 Level 471, Folate [Pending], Thyroid Stimulating Hormone (TSH) 0.887 Height (Feet): 5 Height (Inches): 2.00 Weight (Pounds): 176 General Appearance: no apparent distress Respiratory/Chest: lungs clear Abdomen: soft Objective no change in PE ROLANDO AN Apr 12, 2017 14:21
--- NOTE | 2017-04-12 15:11 | Pulmonology Progress Note ---
Assessment/Plan Problems: (1) Sepsis (2) UTI (urinary tract infection) (3) Hypotension (4) ESRF (end stage renal failure) (5) Low back pain (6) HTN (hypertension) Assessment/Plan improivng continue abx GNR in urine med/surg pain management check cultures. Subjective ROS Limited/Unobtainable: No HEENT: Repors: no symptoms Respiratory: Reports: no symptoms Allergies: Coded Allergies: No Known Allergies (Unverified , 04/10/17) Objective Last 24 Hour Vital Signs Date Time Temp Pulse Resp B/P Pulse Ox O2 Delivery O2 Flow Rate FiO2 04/12/17 12:14 97.0 75 18 124/66 98 Room Air 04/12/17 12:00 88 04/12/17 11:10 Room Air 04/12/17 08:29 97.0 80 18 128/70 97 Room Air 04/12/17 08:25 Room Air 04/12/17 08:00 84 04/12/17 04:20 97.7 80 20 114/65 100 Room Air 04/12/17 04:00 80 04/12/17 00:22 97.0 94 20 113/63 100 Room Air 04/12/17 00:00 83 04/11/17 20:21 97.9 80 20 100/56 98 Room Air 04/11/17 20:00 80 04/11/17 16:27 97.5 82 18 141/70 97 Room Air Intake and Output 04/11/17 04/12/17 19:00 07:00 Intake Total 360 ml Output Total 100 ml Balance 360 ml -100 ml Intake Oral 360 ml Output Urine Total 100 ml # Voids 1 1 General Appearance: WD/WN HEENT: normocephalic, atraumatic Respiratory/Chest: chest wall non-tender, lungs clear Cardiovascular: normal peripheral pulses, normal rate Abdomen: normal bowel sounds, soft, non tender Genitourinary: normal external genitalia Extremities: no clubbing Skin: no lesions Neurologic/Psychiatric: search and rescue officer II-XII grossly normal, no motor/sensory deficits Lymphatic: no neck adenopathy Musculoskeletal: normal muscle bulk Microbiology Date/Time Source Procedure Growth Status 04/10/17 16:05 Blood Blood Culture - Preliminary NO GROWTH AFTER 24 HOURS Resulted 04/10/17 15:55 Blood Blood Culture - Preliminary NO GROWTH AFTER 24 HOURS Resulted 04/10/17 16:40 Urine,Clean Catch Urine Culture - Preliminary Gram Negative Bacillus 1 Resulted Laboratory Tests 04/12/17 08:00: White Blood Count 12.3H, Red Blood Count 2.99L, Hemoglobin 9.8L, Hematocrit 30.8L, Mean Corpuscular Volume 103H, Mean Corpuscular Hemoglobin 32.7H, Mean Corpuscular Hemoglobin Concent 31.8L, Red Cell Distribution Width 15.2H, Platelet Count 262, Mean Platelet Volume 6.4L, Neutrophils (%) (Auto) 61.8, Lymphocytes (%) (Auto) 25.6, Monocytes (%) (Auto) 9.7, Eosinophils (%) (Auto) 2.4, Basophils (%) (Auto) 0.6, Differential Total Cells Counted 100, Neutrophils % (Manual) 65, Lymphocytes % (Manual) 24, Monocytes % (Manual) 8, Eosinophils % (Manual) 2, Basophils % (Manual) 1, Band Neutrophils 0, Platelet Estimate Adequate, Platelet Morphology Normal, Anisocytosis 1+, Erythrocyte Sedimentation Rate 67H, Reticulocyte Count 2.7H, Prothrombin Time 11.2, Prothromb Time International Ratio 1.1, Activated Partial Thromboplast Time 29, Sodium Level 134L, Potassium Level 5.0H, Chloride Level 95L, Carbon Dioxide Level 27, Anion Gap 12, Blood Urea Nitrogen 39H, Creatinine 5.2H, Estimat Glomerular Filtration Rate 10.1, Glucose Level 111H, Hemoglobin A1c 5.6, Calcium Level 10.3H, Phosphorus Level 5.1H, Magnesium Level 1.9, Iron Level 65, Total Iron Binding Capacity 148L, Percent Iron Saturation 44, Unsaturated Iron Binding 83L, Ferritin 1285H, Total Bilirubin 0.4, Gamma Glutamyl Transpeptidase 28, Aspartate Amino Transf (AST/SGOT) 18, Alanine Aminotransferase (ALT/SGPT) 10 , Alkaline Phosphatase 118H, Lactate Dehydrogenase 182, Total Creatine Kinase 224H, C-Reactive Protein, Quantitative 7.7H, Pro-B-Type Natriuretic Peptide 8234H, Total Protein 6.8, Albumin 3.4L, Globulin 3.4, Albumin/Globulin Ratio 1.0 , Triglycerides Level 232H, Cholesterol Level 249H, LDL Cholesterol 167H, HDL Cholesterol 36, Cholesterol/HDL Ratio 6.9H, Carcinoembryonic Antigen 3.8H, Vitamin B12 Level 471, Folate [Pending], Thyroid Stimulating Hormone (TSH) 0.887 Current Medications Medications (Trade) Dose Ordered Sig/Edda Route PRN Reason Start Time Stop Time Status Last Admin Dose Admin Acetaminophen (Tylenol) 650 mg Q4H PRN ORAL T>100.5 04/10/17 21:45 05/10/17 21:44 04/12/17 13:30 Acetaminophen/ Hydrocodone Bitart ([place] 5/325) 1 tab Q4H PRN ORAL Severe Pain (Pain Scale 7-10) 04/11/17 09:00 04/18/17 08:59 04/11/17 12:11 Amlodipine Besylate (Norvasc) 10 mg DAILY ORAL 04/12/17 09:00 05/12/17 08:59 Atorvastatin Calcium (Lipitor) 80 mg BEDTIME ORAL 04/11/17 22:30 05/11/17 22:29 04/11/17 22:24 Chlorhexidine Gluconate (Rosie-Hex 2%) 1 applic DAILY TOPIC 04/12/17 09:00 05/12/17 08:59 04/12/17 12:06 Dextrose (Dextrose 50%) STAT PRN IV Hypoglycemia 04/10/17 21:45 05/10/17 21:44 Diphenhydramine HCl (Benadryl) 25 mg TID PRN ORAL Itching 04/11/17 20:15 05/11/17 20:14 04/11/17 20:21 Docusate Sodium (Colace) 100 mg TWICE A DAY ORAL 04/11/17 09:00 05/11/17 08:59 04/12/17 12:04 Escitalopram Oxalate (Lexapro) 5 mg DAILY ORAL 04/11/17 09:00 05/11/17 08:59 04/12/17 12:05 Gabapentin (Neurontin) 100 mg QHS ORAL 04/11/17 21:00 05/11/17 20:59 04/11/17 21:24 Heparin Sodium (Porcine) (Heparin 5000 units/ml) 5,000 units EVERY 12 HOURS SUBQ 04/11/17 09:00 05/11/17 08:59 04/12/17 12:10 Insulin Aspart (NovoLOG) BEFORE MEALS AND HS SUBQ 04/11/17 11:30 05/11/17 11:29 04/11/17 21:22 Lorazepam (Ativan 2mg/ml 1ml) 0.5 mg Q4H PRN IV For Anxiety 04/10/17 21:45 04/17/17 21:44 Methocarbamol (Robaxin) 500 mg Q8H PRN ORAL muscle spasm 04/11/17 09:00 05/11/17 08:59 Morphine Sulfate (Morphine Sulfate) 2 mg Q4H PRN IVP Moderate Pain (Pain Scale 4-6) 04/10/17 21:45 04/17/17 21:44 04/11/17 04:35 Morphine Sulfate (Morphine Sulfate) 4 mg Q4H PRN IVP breakthrough Pain 04/11/17 09:45 04/18/17 09:44 Multivitamins (Multivitamins) 1 tab DAILY ORAL 04/11/17 09:00 05/11/17 08:59 04/12/17 12:05 Ondansetron HCl (Zofran) 4 mg Q6H PRN IVP Nausea & Vomiting 04/10/17 21:45 05/10/17 21:44 04/11/17 21:36 Pantoprazole (Protonix) 40 mg DAILY ORAL 04/11/17 10:00 05/11/17 09:59 04/12/17 12:05 Polyethylene Glycol (Miralax) 17 gm HSPRN PRN ORAL Constipation 04/10/17 21:45 05/10/17 21:44 Sevelamer Carbonate (Renvela) 800 mg THREE TIMES A DAY ORAL 04/11/17 09:00 05/11/17 08:59 04/12/17 12:12 Zolpidem Tartrate (Ambien) 5 mg HSPRN PRN ORAL Insomnia 04/10/17 21:45 05/10/17 21:44 MICHAEL YEBOAH Apr 12, 2017 15:11
[2017-04-12 15:39] VITALS: BP 157/84
--- NOTE | 2017-04-12 17:32 | Infectious Diseases Prog Note ---
Infectious Disease Consult Infectious Disease Consult Infectious Disease Consult INFECTIOUS DISEASE CONSULTATION DATE OF CONSULTATION: 12Apr2017 CONSULTING PHYSICIAN: Jason Alvarado M.D., [facility], [facility] Covering for Dr. Henry REFERRING PHYSICIAN: Dr. Larry Ko REASON FOR CONSULTATION: Fever, urosepsis HISTORY OF PRESENT ILLNESS: 67 y/o AAF h/o breast CA s/p remote chemo and L mastectomy, ESRD on MWF HD, admitted on 10apr2017 from dialysis center for urinary urgency, flank pain, and fevers. Initial fever w/o leukocytosis improved with empiric IV vancomycin and zosyn started on 10apr2017 PM, noted to have new leukocytosis yesterday, and last dose of zosyn around 10pm last night, now with recurrence of fevers this afternoon, worsening of her fatigue, but intact mentation. She did have elevated serum lactate, mildly elevated alk phos but no transaminitis, and U/A on admission with pyuria and cx growing GNRs pending speciation. blood cx from admission remains ngtd. she does have two indwelling permanent/semi permanent lines, but she reports her RUE port hasn't been used in several months since last chemotherapy. She has h/o chronic LBP, and had spine x ray on this admission. also had CXR negative for infiltrate or effusion. She does report a h/o ex lap in ?2016 at [facility] for an intraabominal infection. PAST MEDICAL HISTORY: Breast CA s/p chemo, most recently >4-6 months ago ESRD on HD MWF R chest portacath RUE permacath chronic LBP Past Surgical History: L mastectomy; ex lap at [facility] in 2016 for peritonitis vs intraabominal abscess ALLERGIES: No known drug allergies. ANTIBIOTICS: zosyn 04/10-04/11 IV vanc x1 on 04/10 Home and hospitalized medications reviewed. SOCIAL HISTORY: no illicits, no etoh FAMILY HISTORY: Noncontributory REVIEW OF SYSTEMS: 11 point ROS negative except for that mentioned in HPI above. PHYSICAL EXAM: VITAL SIGNS: T 101.7, bp 157/84 HR 114 rr 20 99% RA GEN: awake, alert, toxic appearing, appears fatigued HEENT: Mild pale conjunctiva. oral mucosa dry, pharynx w/o exudate or effusion. No icterus. Head normocephalic, neck supple. NECK: No cervical LAD CHEST: Clear to auscultation bilaterally. R chest wall rosamaria cath in place, non tender to palpation over tunnel track. HEART: trachycardic with RAMIN, S1 and S2, no rubs. ABDOMEN: soft, + suprapubic tenderness, non distended, hypo active bowel sounds. EXTREMITIES: No cyanosis, no clubbing, no edema. extremities warm, perfusing distally with brisk cap refill. RUE mediport accessed w/o swelling, warmth, or erythema. NEUROLOGIC: Awake, alert, no focal neurologic motor deficits. : no mleéndez in place, no external lesions LYMPH: no axillay LAD RECTAL: deferred LABORATORY AND DIAGNOSTIC DATA: WBC 12.3, N 61.8% ESR 67 BMP reviewed. SCr 5.2 alk phos 118, ast 18, alt 10, ggt 28, CRP 7.7, LDH 182 u/a TNTC WBC ucx: >100k cfu GNR, identifiation pending blood cx (04/10) ngtd x2 RADIOLOGY: Patient : ELIANA HOWARD Referring Physician: ELEANOR SOARES M.D. ID Number: [id number] Service Date: 04/10/17 : 1950 Report Date: 04/10/17 Gender: F Accession No.: [id number] Location: 2E Procedure: XRAY Chest 1v Indication: SOB Technique: One view of the chest Comparison: none Findings: The heart is borderline enlarged. The aorta is tortuous and calcified. Lungs and pleural spaces are clear. There is a right chest tunneled dialysis catheter and right arm PICC. Left axillary surgical clips are noted. Impression: Borderline cardiomegaly No acute cardiopulmonary process Patient : ELAINA HOWARD Referring Physician: PATSY MORRISON ID Number: [id number] Service Date: 04/11/17 : 1950 Report Date: 04/11/17 Gender: F Accession No.: [id number] Location: 2E Procedure: XRAY L Spine Min 4v Indication: PAIN Technique: 4 views of the lumbar spine Comparison: None Findings: Bony alignment is normal. Vertebral body heights are preserved. Disc spaces are preserved. Pedicles are intact. Sacral arches are preserved. Sacroiliac joint spaces are preserved. There is facet degeneration at L4-5 Impression: No acute process Mild degenerative change ASSESSMENT AND PLAN ASSESSMENT: 1) urosepsis, pending organism ident from 04/10 ucx. 2) r/o line infection. blood cx from 04/10 ngtd, but now febrile again with increased fatigue 3) h/o intraabdominal infection 4) r/o perinephric abscess 5) elevated serum lactate 6) ESRD on HD PLAN: --resume zosyn renally dosed now --random vanc level now --resume IV vanc now dosed per pharmacy --blood cx x2 sets now --f/u 04/10 urine cx results --f/u 04/10 blood cx results --renal u/s to r/o perinephric abscess --acute abdominal series --repeat serum lactic acid --monitor CBC --IV hydration as indicated Thank you for this consultation. Will continue to follow. Covering for Dr. Henry, please call me with questions, Jason Alvarado M.D. Apr 12, 2017 17:32
[2017-04-12] MEDS: Morphine Sulfate 2mg/ml Inj IVP PRN (18:41)
[2017-04-12] MEDS ORDERED: Piperacillin/Tazobactam 2.25 GM in D5W 55 ML IVPB SCH (18:45)
[2017-04-12 20:00] VITALS: BP 107/52
[2017-04-12] MEDS ORDERED: Methocarbamol 500mg tab ORAL PRN (21:00)
[2017-04-12] MEDS ORDERED: Vancomycin 1gm in D5W 275ml IVPB ONE (21:00)
[2017-04-12] MEDS ORDERED: LORazepam Inj 2mg/ml 1ml IV PRN (21:45)
[2017-04-12] MEDS ORDERED: Miralax 17gm pkt ORAL PRN (21:45)
[2017-04-12] MEDS ORDERED: Morphine Sulfate 4mg/ml Inj IVP PRN (21:45)
[2017-04-12] MEDS ORDERED: Zolpidem 5mg tab ORAL PRN (21:45)
[2017-04-12] MEDS ORDERED: Vancomycin 1 GM in D5W 275 ML IVPB ONE (22:00)
[2017-04-12] MEDS: Dyna-Hex 2% Top Sol 8oz TOPIC SCH (22:00)
[2017-04-12] MEDS: Atorvastatin 80mg tab ORAL SCH (22:05)
[2017-04-12] MEDS: Norco 5mg/325mg tab ORAL PRN (22:09)
[2017-04-12] MEDS: Piperacillin/Tazobactam 2.25 GM in D5W 55 ML IVPB SCH (23:45)
[2017-04-13] VITALS: BP 112/77
[2017-04-13 04:00] VITALS: BP 126/71
[2017-04-13] MEDS: Piperacillin/Tazobactam 2.25 GM in D5W 55 ML IVPB SCH ×2 (06:00→13:39)
[2017-04-13] MEDS: NovoLOG Insulin Flexpen SUBQ SCH ×4 (06:20→20:52)
[2017-04-13 07:43] LABS: MEAN CORPUSCULAR HEMOGLOBIN 33.4 PG (27.0-31.0); MEAN CORPUSCULAR HGB CONC 32.8 G/DL (32.0-36.0); MEAN CORPUSCULAR VOLUME 102 FL (80-99); MEAN PLATELET VOLUME 6.2 FL (6.5-10.1); PLATELET COUNT 191 K/UL (150-450); RED CELL DISTRIBUTION WIDTH 15.3 % (11.6-14.8); WHITE BLOOD COUNT 20.6 K/UL (4.8-10.8)
[2017-04-13 07:52] LABS: ALBUMIN/GLOBULIN RATIO 0.9 (1.0-2.7); CALCIUM 8.5 mg/dL (8.6-10.2); CREATININE 4.6 mg/dL (0.5-0.9); CRP QUANT 10.9 mg/dL (< 0.5); GLOMERULAR FILTRATION RATE 11.6 mL/min (>60); MAGNESIUM 1.9 mg/dL (1.7-2.5); PHOSPHORUS 4.3 mg/dL (2.5-4.8); POTASSIUM 4.5 mEQ/L (3.4-4.9); TOTAL PROTEIN 6.4 g/dL (6.6-8.7)
[2017-04-13 08:00] VITALS: BP 130/70
[2017-04-13 08:44] LABS: ERYTHROCYTE SEDIMENTATION RATE 84 MM/HR (0-30)
[2017-04-13] MEDS: Docusate 100mg cap ORAL SCH ×2 (08:51→17:35)
[2017-04-13] MEDS: Escitalopram Oxalate 5mg tab ORAL SCH (08:51)
[2017-04-13] MEDS: Renvela 800mg Pkt ORAL SCH ×3 (08:54→17:35)
[2017-04-13] MEDS: Heparin 5000 units/ml inj SUBQ SCH ×2 (08:56→20:51)
[2017-04-13] MEDS: Norco 5mg/325mg tab ORAL PRN ×2 (09:09→20:39)
[2017-04-13 09:20] LABS: ANISOCYTOSIS 1+; BAND NEUTROPHILS % (MANUAL) 3 % (0-8); BASOPHILS % (MANUAL) 0 % (0-2); EOSINOPHILS % (MANUAL) 0 % (0-3); LYMPHOCYTES % (MANUAL) 14 % (20-45); NEUTROPHILS % (MANUAL) 79 % (45-75); PLATELET ESTIMATE ADEQUATE; PLATELET MORPHOLOGY NORMAL; TOTAL CELLS COUNTED 100
--- NOTE | 2017-04-13 09:32 | Diagnostic Imaging Report ---
Indications: Abdominal/back pain, fever. Technique: AP view of the abdomen Findings: Comparison: None. Bowel gas pattern is nonobstructive. Increased feces throughout colon, rectum. Small rounded calcifications in pelvis compatible with phleboliths.. No abnormal calcific or soft tissue densities are demonstrated. Visualized skeletal structures are unremarkable. Visualized portion of cardiac silhouette is enlarged. Central venous catheter overlies right-sided cardiac silhouette, tip in region of right atrium. IMPRESSION: No evidence of acute abdominopelvic disease Suggestion of constipation. Apparent cardiomegaly Tip of hemodialysis catheter in region of right atrium, suggest withdrawal as clinically indicated
--- NOTE | 2017-04-13 09:39 | Diagnostic Imaging Report ---
Indications: Elevated renal function tests, difficulty urinating, bacteremia Technique: Transabdominal real-time grayscale and duplex Doppler imaging of the kidneys, retroperitoneum, and urinary bladder was performed Findings: Comparison: None Right kidney measures 10.2 cm in length. Normal cortical thickness. Increased cortical echogenicity.. No stones, other focal lesions, hydronephrosis, or obvious perinephric abnormalities. Left kidney measures 9.3 cm in length. Normal cortical thickness. Increased cortical echogenicity. Questionable 3 cm circumscribed focus of parenchymal heterogeneity upper pole cortex.. No stones, other focal lesions, hydronephrosis, or obvious perinephric abnormalities. The intrahepatic portion of inferior vena cava is patent and normal caliber. The urinary bladder is distended with suggestion of mild mural thickening/trabeculation, suggestion of and intraluminal debris. Estimated volume 219 cc. Postvoid imaging not performed. Impression: Bilateral normal size, echogenic kidneys compatible with medical renal disease, nonspecific Questionable 3 cm solid lesion upper pole cortex left kidney, may simply represent prominent lobulation. Focal pathology not entirely excludable. Multiphasic CT abdomen pelvis without and with contrast recommended for further evaluation. Distended urinary bladder with mild mural thickening suggesting chronic outflow impediment. Consider Tavarez catheter placement as clinically indicated. Suggestion of small amount of intraluminal debris and urinary bladder, nonspecific
[2017-04-13 10:36] LABS: OTHERS PATHOLOGIST COMMENT
[2017-04-13 12:00] VITALS: BP 173/70
--- NOTE | 2017-04-13 12:12 | General Progress Note ---
Assessment/Plan Status: unchanged Status Narrative WBCs saul Assessment/Plan Status; ESRD on HD M W Fr UTI ? Line infection Intractible back pain HypoTension h/o Breast Ca s/p Chemo and left mastectomy Plan: HD in am- adjust BP meds- Per PMD , consultants Subjective ROS Limited/Unobtainable: No Allergies: Coded Allergies: No Known Allergies (Unverified , 04/10/17) Objective Last 24 Hour Vital Signs Date Time Temp Pulse Resp B/P Pulse Ox O2 Delivery O2 Flow Rate FiO2 04/13/17 08:53 82 130/70 04/13/17 08:00 97.9 82 20 130/70 97 Room Air 04/13/17 04:00 97.8 83 20 126/71 97 Room Air 04/13/17 00:00 97.9 99 20 112/77 98 Room Air 04/12/17 23:08 97.9 04/12/17 20:00 97.9 99 22 107/52 92 Room Air 04/12/17 16:00 113 04/12/17 15:39 101.7 114 20 157/84 99 Room Air 04/12/17 14:29 99.1 04/12/17 12:14 97.0 75 18 124/66 98 Room Air 04/12/17 12:00 88 Intake and Output 04/12/17 04/13/17 19:00 07:00 Intake Total 120 ml 790.000 ml Output Total 1750 ml Balance -1630 ml 790.000 ml Intake Oral 120 ml 350 ml IV Total 440.000 ml Output Urine Total 150 ml Peritoneal Dialysis UF 1600 ml # Voids 3 Laboratory Tests 04/12/17 18:05: Lactic Acid Level 0.90, Random Vancomycin Level 12.6 04/13/17 05:20: White Blood Count 20.6#H, Red Blood Count 2.80L, Hemoglobin 9.3L, Hematocrit 28.5L, Mean Corpuscular Volume 102H, Mean Corpuscular Hemoglobin 33.4H, Mean Corpuscular Hemoglobin Concent 32.8, Red Cell Distribution Width 15.3H, Platelet Count 191, Mean Platelet Volume 6.2L, Neutrophils (%) (Auto) , Lymphocytes (%) (Auto) , Monocytes (%) (Auto) , Eosinophils (%) (Auto) , Basophils (%) (Auto) , Differential Total Cells Counted 100, Neutrophils % ( Manual) 79H, Lymphocytes % (Manual) 14L, Monocytes % (Manual) 4, Eosinophils % ( Manual) 0, Basophils % (Manual) 0, Band Neutrophils 3, Platelet Estimate Adequate, Platelet Morphology Normal, Anisocytosis 1+, Erythrocyte Sedimentation Rate 84H, Sodium Level 134L, Potassium Level 4.5, Chloride Level 93L, Carbon Dioxide Level 31H, Anion Gap 10, Blood Urea Nitrogen 30H, Creatinine 4.6H, Estimat Glomerular Filtration Rate 11.6, Glucose Level 111H, Calcium Level 8.5L, Phosphorus Level 4.3, Magnesium Level 1.9, Total Bilirubin 0.5, Aspartate Amino Transf (AST/SGOT) 17, Alanine Aminotransferase (ALT/SGPT) 10, Alkaline Phosphatase 151H, C-Reactive Protein, Quantitative 10.9H, Total Protein 6.4L, Albumin 3.1L, Globulin 3.3, Albumin/Globulin Ratio 0.9L Height (Feet): 5 Height (Inches): 2.00 Weight (Pounds): 170 General Appearance: no apparent distress Cardiovascular: normal rate Respiratory/Chest: decreased breath sounds Abdomen: soft Objective no change in PE ROLANDO AN Apr 13, 2017 12:12
--- NOTE | 2017-04-13 13:53 | General Progress Note ---
Assessment/Plan Assessment/Plan (1) Lumbar DDD (2) Lumbar Spondylosis (3) Lumbar Radiculopathy (4) Muscle spasm (5) ESRD on dialysis We will continue Morphine and [place] as needed. D/w Dr. Oliveira and he concurred. Subjective Date patient seen: Apr 13, 2017 Time patient seen: 01:30 - pm Constitutional: Reports: weakness HEENT: Reports: no symptoms Cardiovascular: Reports: no symptoms Respiratory: Reports: no symptoms Gastrointestinal/Abdominal: Reports: no symptoms Genitourinary: Reports: no symptoms Neurologic/Psychiatric: Reports: tingling, weakness Endocrine: Reports: no symptoms Hematologic/Lymphatic: Reports: no symptoms Allergies: Coded Allergies: No Known Allergies (Unverified , 04/10/17) Subjective Pt reports that the pain has been reduced on the [place] and is a 6/10 at this time. D/w nurse. Objective Last 24 Hour Vital Signs Date Time Temp Pulse Resp B/P Pulse Ox O2 Delivery O2 Flow Rate FiO2 04/13/17 12:00 98.2 80 20 173/70 97 Room Air 04/13/17 08:53 82 130/70 04/13/17 08:00 97.9 82 20 130/70 97 Room Air 04/13/17 04:00 97.8 83 20 126/71 97 Room Air 04/13/17 00:00 97.9 99 20 112/77 98 Room Air 04/12/17 23:08 97.9 04/12/17 20:00 97.9 99 22 107/52 92 Room Air 04/12/17 16:00 113 04/12/17 15:39 101.7 114 20 157/84 99 Room Air 04/12/17 14:29 99.1 Intake and Output 04/12/17 04/13/17 19:00 07:00 Intake Total 120 ml 790.000 ml Output Total 1750 ml Balance -1630 ml 790.000 ml Intake Oral 120 ml 350 ml IV Total 440.000 ml Output Urine Total 150 ml Peritoneal Dialysis UF 1600 ml # Voids 3 Laboratory Tests 04/12/17 18:05: Lactic Acid Level 0.90, Random Vancomycin Level 12.6 04/13/17 05:20: White Blood Count 20.6#H, Red Blood Count 2.80L, Hemoglobin 9.3L, Hematocrit 28.5L, Mean Corpuscular Volume 102H, Mean Corpuscular Hemoglobin 33.4H, Mean Corpuscular Hemoglobin Concent 32.8, Red Cell Distribution Width 15.3H, Platelet Count 191, Mean Platelet Volume 6.2L, Neutrophils (%) (Auto) , Lymphocytes (%) (Auto) , Monocytes (%) (Auto) , Eosinophils (%) (Auto) , Basophils (%) (Auto) , Differential Total Cells Counted 100, Neutrophils % ( Manual) 79H, Lymphocytes % (Manual) 14L, Monocytes % (Manual) 4, Eosinophils % ( Manual) 0, Basophils % (Manual) 0, Band Neutrophils 3, Platelet Estimate Adequate, Platelet Morphology Normal, Anisocytosis 1+, Erythrocyte Sedimentation Rate 84H, Sodium Level 134L, Potassium Level 4.5, Chloride Level 93L, Carbon Dioxide Level 31H, Anion Gap 10, Blood Urea Nitrogen 30H, Creatinine 4.6H, Estimat Glomerular Filtration Rate 11.6, Glucose Level 111H, Calcium Level 8.5L, Phosphorus Level 4.3, Magnesium Level 1.9, Total Bilirubin 0.5, Aspartate Amino Transf (AST/SGOT) 17, Alanine Aminotransferase (ALT/SGPT) 10, Alkaline Phosphatase 151H, C-Reactive Protein, Quantitative 10.9H, Total Protein 6.4L, Albumin 3.1L, Globulin 3.3, Albumin/Globulin Ratio 0.9L Height (Feet): 5 Height (Inches): 2.00 Weight (Pounds): 170 General Appearance: no apparent distress, alert EENT: PERRL/EOMI, normal ENT inspection Neck: normal alignment, supple Cardiovascular: normal rate, regular rhythm Respiratory/Chest: normal breath sounds, no respiratory distress Abdomen: non tender, soft Extremities: non-tender Edema: trace edema Neurologic: alert, oriented x 3 Skin: warm/dry PATSY MORRISON Apr 13, 2017 13:53
[2017-04-13 16:00] VITALS: BP 154/71
--- NOTE | 2017-04-13 16:53 | Pulmonology Progress Note ---
Assessment/Plan Problems: (1) Sepsis (2) UTI (urinary tract infection) (3) Hypotension (4) ESRF (end stage renal failure) (5) Low back pain (6) HTN (hypertension) Assessment/Plan afebile, wbc highe improivng continue abx GNR in urine med/surg pain management check cultures. Subjective ROS Limited/Unobtainable: No Constitutional: Reports: no symptoms HEENT: Repors: no symptoms Respiratory: Reports: no symptoms Allergies: Coded Allergies: No Known Allergies (Unverified , 04/10/17) Objective Last 24 Hour Vital Signs Date Time Temp Pulse Resp B/P Pulse Ox O2 Delivery O2 Flow Rate FiO2 04/13/17 16:00 97.7 80 20 154/71 97 Room Air 04/13/17 12:00 98.2 80 20 173/70 97 Room Air 04/13/17 08:53 82 130/70 04/13/17 08:00 97.9 82 20 130/70 97 Room Air 04/13/17 04:00 97.8 83 20 126/71 97 Room Air 04/13/17 00:00 97.9 99 20 112/77 98 Room Air 04/12/17 23:08 97.9 04/12/17 20:00 97.9 99 22 107/52 92 Room Air Intake and Output 04/12/17 04/13/17 19:00 07:00 Intake Total 120 ml 790.000 ml Output Total 1750 ml Balance -1630 ml 790.000 ml Intake Oral 120 ml 350 ml IV Total 440.000 ml Output Urine Total 150 ml Peritoneal Dialysis UF 1600 ml # Voids 3 General Appearance: WD/WN HEENT: normocephalic, atraumatic Respiratory/Chest: chest wall non-tender, lungs clear Cardiovascular: normal peripheral pulses, normal rate Abdomen: normal bowel sounds, no organomegaly Genitourinary: normal external genitalia Extremities: no clubbing Skin: no rash 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, no motor/sensory deficits Laboratory Tests 04/12/17 18:05: Lactic Acid Level 0.90, Random Vancomycin Level 12.6 04/13/17 05:20: White Blood Count 20.6#H, Red Blood Count 2.80L, Hemoglobin 9.3L, Hematocrit 28.5L, Mean Corpuscular Volume 102H, Mean Corpuscular Hemoglobin 33.4H, Mean Corpuscular Hemoglobin Concent 32.8, Red Cell Distribution Width 15.3H, Platelet Count 191, Mean Platelet Volume 6.2L, Neutrophils (%) (Auto) , Lymphocytes (%) (Auto) , Monocytes (%) (Auto) , Eosinophils (%) (Auto) , Basophils (%) (Auto) , Differential Total Cells Counted 100, Neutrophils % ( Manual) 79H, Lymphocytes % (Manual) 14L, Monocytes % (Manual) 4, Eosinophils % ( Manual) 0, Basophils % (Manual) 0, Band Neutrophils 3, Platelet Estimate Adequate, Platelet Morphology Normal, Anisocytosis 1+, Erythrocyte Sedimentation Rate 84H, Sodium Level 134L, Potassium Level 4.5, Chloride Level 93L, Carbon Dioxide Level 31H, Anion Gap 10, Blood Urea Nitrogen 30H, Creatinine 4.6H, Estimat Glomerular Filtration Rate 11.6, Glucose Level 111H, Calcium Level 8.5L, Phosphorus Level 4.3, Magnesium Level 1.9, Total Bilirubin 0.5, Aspartate Amino Transf (AST/SGOT) 17, Alanine Aminotransferase (ALT/SGPT) 10, Alkaline Phosphatase 151H, C-Reactive Protein, Quantitative 10.9H, Total Protein 6.4L, Albumin 3.1L, Globulin 3.3, Albumin/Globulin Ratio 0.9L Current Medications Medications (Trade) Dose Ordered Sig/Edda Route PRN Reason Start Time Stop Time Status Last Admin Dose Admin Acetaminophen (Tylenol) 650 mg Q4H PRN ORAL T>100.5 04/12/17 21:45 05/12/17 21:44 Acetaminophen/ Hydrocodone Bitart ([place] 5/325) 1 tab Q4H PRN ORAL Severe Pain (Pain Scale 7-10) 04/12/17 21:00 04/19/17 20:59 04/13/17 09:09 Amlodipine Besylate (Norvasc) 10 mg DAILY ORAL 04/13/17 09:00 05/13/17 08:59 04/13/17 08:53 Atorvastatin Calcium (Lipitor) 80 mg BEDTIME ORAL 04/12/17 21:00 05/12/17 20:59 04/12/17 22:05 Chlorhexidine Gluconate (Rosie-Hex 2%) 1 applic QHS TOPIC 04/12/17 22:00 05/12/17 21:59 Dextrose (Dextrose 50%) STAT PRN IV Hypoglycemia 04/12/17 21:45 05/12/17 21:44 Diphenhydramine HCl (Benadryl) 25 mg TIDPRN PRN ORAL Itching 04/12/17 21:00 05/12/17 20:59 Docusate Sodium (Colace) 100 mg TWICE A DAY ORAL 04/13/17 09:00 05/13/17 08:59 04/13/17 08:51 Escitalopram Oxalate (Lexapro) 5 mg DAILY ORAL 04/13/17 09:00 05/13/17 08:59 04/13/17 08:51 Gabapentin (Neurontin) 100 mg QHS ORAL 04/12/17 22:00 05/12/17 21:59 04/12/17 22:04 Heparin Sodium (Porcine) (Heparin 5000 units/ml) 5,000 units EVERY 12 HOURS SUBQ 04/12/17 22:00 05/12/17 21:59 04/13/17 08:56 Insulin Aspart (NovoLOG) BEFORE MEALS AND HS SUBQ 04/12/17 22:00 05/12/17 21:59 04/12/17 22:16 Lorazepam (Ativan 2mg/ml 1ml) 0.5 mg Q4H PRN IV For Anxiety 04/12/17 21:45 04/19/17 21:44 Methocarbamol (Robaxin) 500 mg Q8H PRN ORAL muscle spasm 04/12/17 21:00 05/12/17 20:59 Morphine Sulfate (Morphine Sulfate) 2 mg Q4H PRN IVP Moderate Pain (Pain Scale 4-6) 04/12/17 21:45 04/19/17 21:44 Morphine Sulfate (Morphine Sulfate) 4 mg Q4H PRN IVP breakthrough Pain 04/12/17 21:45 04/19/17 21:44 Multivitamins (Multivitamins) 1 tab DAILY ORAL 04/13/17 09:00 05/13/17 08:59 04/13/17 08:52 Ondansetron HCl (Zofran) 4 mg Q6H PRN IVP Nausea & Vomiting 04/12/17 21:45 05/12/17 21:44 04/13/17 12:39 Pantoprazole (Protonix) 40 mg DAILY ORAL 04/13/17 09:00 05/13/17 08:59 04/13/17 08:53 Piperacillin Sod/ Tazobactam Sod/ Dextrose (Zosyn/D5W) 55 ml @ 110 mls/hr Q8HR IVPB 04/12/17 22:00 04/19/17 21:59 04/13/17 13:39 Polyethylene Glycol (Miralax) 17 gm HSPRN PRN ORAL Constipation 04/12/17 21:45 05/12/17 21:44 Sevelamer Carbonate (Renvela) 800 mg THREE TIMES A DAY ORAL 04/13/17 09:00 05/13/17 08:59 04/13/17 12:39 Vancomycin HCl (Vanco rx to dose) 1 ea DAILY PRN MISC Per rx protocol 04/13/17 09:00 05/13/17 08:59 Zolpidem Tartrate (Ambien) 5 mg HSPRN PRN ORAL Insomnia 04/12/17 21:45 05/12/17 21:44 MICHAEL YEBOAH Apr 13, 2017 16:53
--- NOTE | 2017-04-13 18:11 | Infectious Diseases Prog Note ---
Assessment/Plan Assessment/Plan ASSESSMENT: 1) E coli urosepsis, patient subjectively feels improved today, despite worsening leukocytosis. 2) no evidence of line infection at this time w/ blood cx from 04/10 ngtd. repeat blood cx from 04/12 pending, but is now afebrile. 3) h/o intraabdominal infection 4) renal u/s negative for perinephric abscess, but in L kidney there is a 3 cm circumscribed focus of parenchymal heterogeneity upper pole cortex that will be better appreciated on CT. would prefer with IV contrast, but given her kidneys, will obtain non contrast CT 5) elevated serum lactate, now normalized 6) ESRD on HD 7) constipation. 8) elevated alk phos, mild PLAN: --d/c zosyn D#3 --d/c vancomycin --start ceftriaxone 2gm IV daily --f/u blood cx from 04/10 and 04/12 --f/u 04/10 blood cx results --CT scan abd/pelvis w/o contrast to evaluate L kidney --s/p acute abdominal series notable only for constipation --monitor CBC --IV hydration as indicated --C diff on stool when she has a BM Subjective Allergies: Coded Allergies: No Known Allergies (Unverified , 04/10/17) Objective Vital Signs Last 24 Hour Vital Signs Date Time Temp Pulse Resp B/P Pulse Ox O2 Delivery O2 Flow Rate FiO2 04/13/17 16:00 97.7 80 20 154/71 97 Room Air 04/13/17 12:00 98.2 80 20 173/70 97 Room Air 04/13/17 08:53 82 130/70 04/13/17 08:00 97.9 82 20 130/70 97 Room Air 04/13/17 04:00 97.8 83 20 126/71 97 Room Air 04/13/17 00:00 97.9 99 20 112/77 98 Room Air 04/12/17 23:08 97.9 04/12/17 20:00 97.9 99 22 107/52 92 Room Air Height (Feet): 5 Height (Inches): 2.00 Weight (Pounds): 170 Objective GEN: awake, alert, toxic appearing, appears fatigued HEENT: Mild pale conjunctiva. oral mucosa dry, pharynx w/o exudate or effusion. No icterus. Head normocephalic, neck supple. NECK: No cervical LAD CHEST: Clear to auscultation bilaterally. R chest wall rosamaria cath in place, non tender to palpation over tunnel track. HEART: trachycardic with RAMIN, S1 and S2, no rubs. ABDOMEN: soft, + suprapubic tenderness, non distended, hypo active bowel sounds. EXTREMITIES: No cyanosis, no clubbing, no edema. extremities warm, perfusing distally with brisk cap refill. RUE mediport w/o swelling, warmth, or erythema. NEUROLOGIC: Awake, alert, no focal neurologic motor deficits. : no meléndez in place, no external lesions LYMPH: no axillay LAD RECTAL: deferred blood cx from 04/10 ngtd ucx from 04/10: E coli (R to FQ, tmp/smx) Radiology Patient : ELAINA HOWARD Referring Physician: Jason Alvarado M.D. ID Number: [id number] Service Date: 04/12/17 : 1950 Report Date: 04/12/17 Gender: F Accession No.: [id number] Location: 4E Procedure: XRAY Abdomen 2v Indications: Abdominal/back pain, fever. Technique: AP view of the abdomen Findings: Comparison: None. Bowel gas pattern is nonobstructive. Increased feces throughout colon, rectum. Small rounded calcifications in pelvis compatible with phleboliths.. No abnormal calcific or soft tissue densities are demonstrated. Visualized skeletal structures are unremarkable. Visualized portion of cardiac silhouette is enlarged. Central venous catheter overlies right-sided cardiac silhouette, tip in region of right atrium. IMPRESSION: No evidence of acute abdominopelvic disease Suggestion of constipation. Apparent cardiomegaly Tip of hemodialysis catheter in region of right atrium, suggest withdrawal as clinically indicated Procedure: US Renal Indications: Elevated renal function tests, difficulty urinating, bacteremia Technique: Transabdominal real-time grayscale and duplex Doppler imaging of the kidneys, retroperitoneum, and urinary bladder was performed Findings: Comparison: None Right kidney measures 10.2 cm in length. Normal cortical thickness. Increased cortical echogenicity.. No stones, other focal lesions, hydronephrosis, or obvious perinephric abnormalities. Left kidney measures 9.3 cm in length. Normal cortical thickness. Increased cortical echogenicity. Questionable 3 cm circumscribed focus of parenchymal heterogeneity upper pole cortex.. No stones, other focal lesions, hydronephrosis, or obvious perinephric abnormalities. The intrahepatic portion of inferior vena cava is patent and normal caliber. The urinary bladder is distended with suggestion of mild mural thickening/trabeculation, suggestion of and intraluminal debris. Estimated volume 219 cc. Postvoid imaging not performed. Impression: Bilateral normal size, echogenic kidneys compatible with medical renal disease, nonspecific Questionable 3 cm solid lesion upper pole cortex left kidney, may simply represent prominent lobulation. Focal pathology not entirely excludable. Multiphasic CT abdomen pelvis without and with contrast recommended for further evaluation. Distended urinary bladder with mild mural thickening suggesting chronic outflow impediment. Consider Meléndez catheter placement as clinically indicated. Suggestion of small amount of intraluminal debris and urinary bladder, nonspecific Laboratory Tests Test 04/12/17 18:05 04/13/17 05:20 Lactic Acid Level 0.90 mmol/L (0.66-2.22) Random Vancomycin Level 12.6 ug/mL White Blood Count 20.6 K/UL (4.8-10.8) #H Red Blood Count 2.80 M/UL (4.20-5.40) L Hemoglobin 9.3 G/DL (12.0-16.0) L Hematocrit 28.5 % (37.0-47.0) L Mean Corpuscular Volume 102 FL (80-99) H Mean Corpuscular Hemoglobin 33.4 PG (27.0-31.0) H Mean Corpuscular Hemoglobin Concent 32.8 G/DL (32.0-36.0) Red Cell Distribution Width 15.3 % (11.6-14.8) H Platelet Count 191 K/UL (150-450) Mean Platelet Volume 6.2 FL (6.5-10.1) L Neutrophils (%) (Auto) % (45.0-75.0) Lymphocytes (%) (Auto) % (20.0-45.0) Monocytes (%) (Auto) % (1.0-10.0) Eosinophils (%) (Auto) % (0.0-3.0) Basophils (%) (Auto) % (0.0-2.0) Differential Total Cells Counted 100 Neutrophils % (Manual) 79 % (45-75) H Lymphocytes % (Manual) 14 % (20-45) L Monocytes % (Manual) 4 % (1-10) Eosinophils % (Manual) 0 % (0-3) Basophils % (Manual) 0 % (0-2) Band Neutrophils 3 % (0-8) Platelet Estimate Adequate Platelet Morphology Normal Anisocytosis 1+ Erythrocyte Sedimentation Rate 84 MM/HR (0-30) H Sodium Level 134 mEQ/L (135-145) L Potassium Level 4.5 mEQ/L (3.4-4.9) Chloride Level 93 mEQ/L (98-107) L Carbon Dioxide Level 31 mEQ/L (20-30) H Anion Gap 10 (5-15) Blood Urea Nitrogen 30 mg/dL (7-23) H Creatinine 4.6 mg/dL (0.5-0.9) H Estimat Glomerular Filtration Rate 11.6 mL/min (>60) Glucose Level 111 mg/dL (74-106) H Calcium Level 8.5 mg/dL (8.6-10.2) L Phosphorus Level 4.3 mg/dL (2.5-4.8) Magnesium Level 1.9 mg/dL (1.7-2.5) Total Bilirubin 0.5 mg/dL (0.0-1.2) Aspartate Amino Transf (AST/SGOT) 17 U/L (5-40) Alanine Aminotransferase (ALT/SGPT) 10 U/L (3-33) Alkaline Phosphatase 151 U/L (35-104) H C-Reactive Protein, Quantitative 10.9 mg/dL (< 0.5) H Total Protein 6.4 g/dL (6.6-8.7) L Albumin 3.1 g/dL (3.5-5.2) L Globulin 3.3 g/dL Albumin/Globulin Ratio 0.9 (1.0-2.7) L Current Medications Medications (Trade) Dose Ordered Sig/Edda Route PRN Reason Start Time Stop Time Status Last Admin Dose Admin Acetaminophen (Tylenol) 650 mg Q4H PRN ORAL T>100.5 04/12/17 21:45 05/12/17 21:44 Acetaminophen/ Hydrocodone Bitart ([place] 5/325) 1 tab Q4H PRN ORAL Severe Pain (Pain Scale 7-10) 04/12/17 21:00 04/19/17 20:59 04/13/17 09:09 Amlodipine Besylate (Norvasc) 10 mg DAILY ORAL 04/13/17 09:00 05/13/17 08:59 04/13/17 08:53 Atorvastatin Calcium (Lipitor) 80 mg BEDTIME ORAL 04/12/17 21:00 05/12/17 20:59 04/12/17 22:05 Chlorhexidine Gluconate (Rosie-Hex 2%) 1 applic QHS TOPIC 04/12/17 22:00 05/12/17 21:59 Dextrose (Dextrose 50%) STAT PRN IV Hypoglycemia 04/12/17 21:45 05/12/17 21:44 Diphenhydramine HCl (Benadryl) 25 mg TIDPRN PRN ORAL Itching 04/12/17 21:00 05/12/17 20:59 Docusate Sodium (Colace) 100 mg TWICE A DAY ORAL 04/13/17 09:00 05/13/17 08:59 04/13/17 17:35 Escitalopram Oxalate (Lexapro) 5 mg DAILY ORAL 04/13/17 09:00 05/13/17 08:59 04/13/17 08:51 Gabapentin (Neurontin) 100 mg QHS ORAL 04/12/17 22:00 05/12/17 21:59 04/12/17 22:04 Heparin Sodium (Porcine) (Heparin 5000 units/ml) 5,000 units EVERY 12 HOURS SUBQ 04/12/17 22:00 05/12/17 21:59 04/13/17 08:56 Insulin Aspart (NovoLOG) BEFORE MEALS AND HS SUBQ 04/12/17 22:00 05/12/17 21:59 04/13/17 17:37 Lorazepam (Ativan 2mg/ml 1ml) 0.5 mg Q4H PRN IV For Anxiety 04/12/17 21:45 04/19/17 21:44 Methocarbamol (Robaxin) 500 mg Q8H PRN ORAL muscle spasm 04/12/17 21:00 05/12/17 20:59 Morphine Sulfate (Morphine Sulfate) 2 mg Q4H PRN IVP Moderate Pain (Pain Scale 4-6) 04/12/17 21:45 04/19/17 21:44 Morphine Sulfate (Morphine Sulfate) 4 mg Q4H PRN IVP breakthrough Pain 04/12/17 21:45 04/19/17 21:44 Multivitamins (Multivitamins) 1 tab DAILY ORAL 04/13/17 09:00 05/13/17 08:59 04/13/17 08:52 Ondansetron HCl (Zofran) 4 mg Q6H PRN IVP Nausea & Vomiting 04/12/17 21:45 05/12/17 21:44 04/13/17 12:39 Pantoprazole (Protonix) 40 mg DAILY ORAL 04/13/17 09:00 05/13/17 08:59 04/13/17 08:53 Piperacillin Sod/ Tazobactam Sod/ Dextrose (Zosyn/D5W) 55 ml @ 110 mls/hr Q8HR IVPB 04/12/17 22:00 04/19/17 21:59 04/13/17 13:39 Polyethylene Glycol (Miralax) 17 gm HSPRN PRN ORAL Constipation 04/12/17 21:45 05/12/17 21:44 Sevelamer Carbonate (Renvela) 800 mg THREE TIMES A DAY ORAL 04/13/17 09:00 05/13/17 08:59 04/13/17 17:35 Vancomycin HCl (Vanco rx to dose) 1 ea DAILY PRN MISC Per rx protocol 04/13/17 09:00 05/13/17 08:59 Zolpidem Tartrate (Ambien) 5 mg HSPRN PRN ORAL Insomnia 04/12/17 21:45 05/12/17 21:44 Jason Alvarado M.D. Apr 13, 2017 18:11
[2017-04-13 20:00] VITALS: BP 136/71
[2017-04-13] MEDS: cefTRIAXone 2 GM in D5W 110 ML IVPB SCH (20:38)
[2017-04-13] MEDS: Dyna-Hex 2% Top Sol 8oz TOPIC SCH (20:38)
[2017-04-13] MEDS: Atorvastatin 80mg tab ORAL SCH (20:39)
[2017-04-14] VITALS: BP 133/72
[2017-04-14 04:00] VITALS: BP 158/58
[2017-04-14 06:28] LABS: CALCIUM 8.5 mg/dL (8.6-10.2); CREATININE 5.8 mg/dL (0.5-0.9); CRP QUANT 7.8 mg/dL (< 0.5); GLOMERULAR FILTRATION RATE 8.8 mL/min (>60); MAGNESIUM 1.8 mg/dL (1.7-2.5); POTASSIUM 4.8 mEQ/L (3.4-4.9)
[2017-04-14] MEDS: NovoLOG Insulin Flexpen SUBQ SCH ×4 (06:30→21:00)
[2017-04-14 06:52] LABS: ALBUMIN/GLOBULIN RATIO 1.1 (1.0-2.7); TOTAL PROTEIN 6.6 g/dL (6.6-8.7)
--- NOTE | 2017-04-14 07:59 | Pulmonology Progress Note ---
Assessment/Plan Assessment/Plan ASSESSMENT sepsis UTI with E coli hypotension ESRD on HD chronic outflow obstruction low back pain anemia of chronic disease breast Ca, s/p L mastectomy and radiation HTN with initial hypotension DM constipation PLAN OF CARE MS floor urine cx + E coli, blood cx negative CXR negative Lumbar X ray no acute changes, + mild degenerative changes renal US with bilateral echogenic kidneys compatible with medical renal disease, Questionable 3 cm solid lesion upper pole cortex left kidney, may simply represent prominent lobulation. Focal pathology not entirely excludable. Distended urinary bladder with mild mural thickening suggesting chronic outflow impediment. subsequently CT A/P done revealed no definite left renal abnormality to correspond to abnormality described on recent renal ultrasound. However, in the absence of IV contrast, renal mass cannot be excluded with confidence. Possible retroperitoneal, mesenteric root, peripancreatic lymphadenopathy. Bilateral pulmonary parenchymal atelectatic changes and scarring abdominal X ray negative hypotension resolved BP management with CCB continue statin BS management with SS of insulin pain management as per pain specialist recommendations DVT GI prophylaxis bowel regimen PT/OT dc plan pending ID clearance , providing leucocytosis trending down case discussed and evaluated by supervising physician Subjective Allergies: Coded Allergies: No Known Allergies (Unverified , 04/10/17) Subjective leukcotysosi with trend up yesterday, no labs this am Objective Last 24 Hour Vital Signs Date Time Temp Pulse Resp B/P Pulse Ox O2 Delivery O2 Flow Rate FiO2 04/14/17 04:00 99.1 83 18 158/58 99 Room Air 04/14/17 00:00 97.7 77 20 133/72 96 Room Air 04/13/17 21:38 98.2 04/13/17 20:00 98.2 83 20 136/71 98 Room Air 04/13/17 16:00 97.7 80 20 154/71 97 Room Air 04/13/17 12:00 98.2 80 20 173/70 97 Room Air 04/13/17 08:53 82 130/70 04/13/17 08:00 97.9 82 20 130/70 97 Room Air Intake and Output 04/13/17 04/14/17 19:00 07:00 Intake Total 200 ml 110 ml Output Total 500 ml Balance 200 ml -390 ml Intake Oral 200 ml IV Total 110 ml Output Urine Total 500 ml # Bowel Movements 1 Objective General Appearance: WD/WN awake, responsive HEENT: normocephalic, atraumatic Respiratory/Chest: chest wall non-tender, lungs clear Cardiovascular: normal peripheral pulses, normal rate Abdomen: normal bowel sounds, no organomegaly Genitourinary: normal external genitalia Extremities: no clubbing 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 grossly normal, no motor/sensory deficits Laboratory Tests 04/13/17 21:00: Stool Occult Blood [Pending] 04/14/17 05:30: Sodium Level 131L, Potassium Level 4.8, Chloride Level 92L, Carbon Dioxide Level 27, Anion Gap 12, Blood Urea Nitrogen 43H, Creatinine 5.8H, Estimat Glomerular Filtration Rate 8.8, Glucose Level 104, Calcium Level 8.5L, Phosphorus Level 4.0, Magnesium Level 1.8, Total Bilirubin 0.3, Aspartate Amino Transf (AST/SGOT) 24, Alanine Aminotransferase (ALT/SGPT) 12, Alkaline Phosphatase 131H, C-Reactive Protein, Quantitative 7.8H, Pro-B-Type Natriuretic Peptide 7256H, Total Protein 6.6, Albumin 3.5, Globulin 3.1, Albumin/Globulin Ratio 1.1 Current Medications Medications (Trade) Dose Ordered Sig/Edda Route PRN Reason Start Time Stop Time Status Last Admin Dose Admin Acetaminophen (Tylenol) 650 mg Q4H PRN ORAL T>100.5 04/12/17 21:45 05/12/17 21:44 Acetaminophen/ Hydrocodone Bitart ([place] 5/325) 1 tab Q4H PRN ORAL Severe Pain (Pain Scale 7-10) 04/12/17 21:00 04/19/17 20:59 04/13/17 20:39 Amlodipine Besylate (Norvasc) 10 mg DAILY ORAL 04/13/17 09:00 05/13/17 08:59 04/13/17 08:53 Atorvastatin Calcium (Lipitor) 80 mg BEDTIME ORAL 04/12/17 21:00 05/12/17 20:59 04/13/17 20:39 Ceftriaxone Sodium/Dextrose (Rocephin/D5W) 110 ml @ 220 mls/hr Q24H IVPB 04/13/17 21:00 04/20/17 20:59 04/13/17 20:38 Chlorhexidine Gluconate (Rosie-Hex 2%) 1 applic QHS TOPIC 04/12/17 22:00 05/12/17 21:59 04/13/17 20:38 Dextrose (Dextrose 50%) STAT PRN IV Hypoglycemia 04/12/17 21:45 05/12/17 21:44 Diphenhydramine HCl (Benadryl) 25 mg TIDPRN PRN ORAL Itching 04/12/17 21:00 05/12/17 20:59 Docusate Sodium (Colace) 100 mg TWICE A DAY ORAL 04/13/17 09:00 05/13/17 08:59 04/13/17 17:35 Escitalopram Oxalate (Lexapro) 5 mg DAILY ORAL 04/13/17 09:00 05/13/17 08:59 04/13/17 08:51 Gabapentin (Neurontin) 100 mg QHS ORAL 04/12/17 22:00 05/12/17 21:59 04/13/17 20:52 Heparin Sodium (Porcine) (Heparin 5000 units/ml) 5,000 units EVERY 12 HOURS SUBQ 04/12/17 22:00 05/12/17 21:59 04/13/17 20:51 Insulin Aspart (NovoLOG) BEFORE MEALS AND HS SUBQ 04/12/17 22:00 05/12/17 21:59 04/13/17 17:37 Lorazepam (Ativan 2mg/ml 1ml) 0.5 mg Q4H PRN IV For Anxiety 04/12/17 21:45 04/19/17 21:44 Methocarbamol (Robaxin) 500 mg Q8H PRN ORAL muscle spasm 04/12/17 21:00 05/12/17 20:59 Morphine Sulfate (Morphine Sulfate) 2 mg Q4H PRN IVP Moderate Pain (Pain Scale 4-6) 04/12/17 21:45 04/19/17 21:44 Morphine Sulfate (Morphine Sulfate) 4 mg Q4H PRN IVP breakthrough Pain 04/12/17 21:45 04/19/17 21:44 Multivitamins (Multivitamins) 1 tab DAILY ORAL 04/13/17 09:00 05/13/17 08:59 04/13/17 08:52 Ondansetron HCl (Zofran) 4 mg Q6H PRN IVP Nausea & Vomiting 04/12/17 21:45 05/12/17 21:44 04/13/17 12:39 Pantoprazole (Protonix) 40 mg DAILY ORAL 04/13/17 09:00 05/13/17 08:59 04/13/17 08:53 Polyethylene Glycol (Miralax) 17 gm HSPRN PRN ORAL Constipation 04/12/17 21:45 05/12/17 21:44 04/13/17 20:34 Sevelamer Carbonate (Renvela) 800 mg THREE TIMES A DAY ORAL 04/13/17 09:00 05/13/17 08:59 04/13/17 17:35 Zolpidem Tartrate 5 mg 5 mg HSPRN PRN ORAL Insomnia 04/12/17 21:45 05/12/17 21:44 [facility] NP Apr 14, 2017 07:59
[2017-04-14 08:00] VITALS: BP 154/114
[2017-04-14] MEDS: Docusate 100mg cap ORAL SCH ×2 (08:21→17:21)
[2017-04-14] MEDS: Escitalopram Oxalate 5mg tab ORAL SCH (08:21)
[2017-04-14] MEDS: Renvela 800mg Pkt ORAL SCH ×3 (08:21→17:21)
[2017-04-14] MEDS: Heparin 5000 units/ml inj SUBQ SCH ×2 (08:24→21:00)
--- NOTE | 2017-04-14 09:15 | General Progress Note ---
Assessment/Plan Status: stable Assessment/Plan Status; ESRD on HD M W Fr UTI ? ??Line infection E coli urosepsis, patient subjectively feels improved no evidence of line infection at this time Intractible back pain HypoTension h/o Breast Ca s/p Chemo and left mastectomy Plan: HD today waiting for CBC adjust BP meds- Per PMD , consultants ? DC planning? Subjective ROS Limited/Unobtainable: No Constitutional: Reports: other - clinically improved Allergies: Coded Allergies: No Known Allergies (Unverified , 04/10/17) Objective Last 24 Hour Vital Signs Date Time Temp Pulse Resp B/P Pulse Ox O2 Delivery O2 Flow Rate FiO2 04/14/17 08:00 98.2 83 20 154/114 100 Room Air 04/14/17 04:00 99.1 83 18 158/58 99 Room Air 04/14/17 00:00 97.7 77 20 133/72 96 Room Air 04/13/17 21:38 98.2 04/13/17 20:00 98.2 83 20 136/71 98 Room Air 04/13/17 16:00 97.7 80 20 154/71 97 Room Air 04/13/17 12:00 98.2 80 20 173/70 97 Room Air Intake and Output 04/13/17 04/14/17 19:00 07:00 Intake Total 200 ml 110 ml Output Total 500 ml Balance 200 ml -390 ml Intake Oral 200 ml IV Total 110 ml Output Urine Total 500 ml # Bowel Movements 1 Laboratory Tests 04/13/17 21:00: Stool Occult Blood [Pending] 04/14/17 05:30: Sodium Level 131L, Potassium Level 4.8, Chloride Level 92L, Carbon Dioxide Level 27, Anion Gap 12, Blood Urea Nitrogen 43H, Creatinine 5.8H, Estimat Glomerular Filtration Rate 8.8, Glucose Level 104, Calcium Level 8.5L, Phosphorus Level 4.0, Magnesium Level 1.8, Total Bilirubin 0.3, Aspartate Amino Transf (AST/SGOT) 24, Alanine Aminotransferase (ALT/SGPT) 12, Alkaline Phosphatase 131H, C-Reactive Protein, Quantitative 7.8H, Pro-B-Type Natriuretic Peptide 7256H, Total Protein 6.6, Albumin 3.5, Globulin 3.1, Albumin/Globulin Ratio 1.1 Height (Feet): 5 Height (Inches): 2.00 Weight (Pounds): 173 General Appearance: no apparent distress Cardiovascular: regular rhythm Respiratory/Chest: decreased breath sounds Objective no change in PE ROLANDO AN Apr 14, 2017 09:15
--- NOTE | 2017-04-14 09:47 | General Progress Note ---
Assessment/Plan Assessment/Plan (1) Lumbar DDD (2) Lumbar Spondylosis (3) Lumbar Radiculopathy (4) Muscle spasm (5) ESRD on dialysis We will continue Morphine and Ellerbe as needed. D/w Dr. Oliveira and he concurred. Subjective Date patient seen: Apr 14, 2017 Time patient seen: 09:30 - am Constitutional: Reports: weakness HEENT: Reports: no symptoms Cardiovascular: Reports: no symptoms Respiratory: Reports: no symptoms Gastrointestinal/Abdominal: Reports: no symptoms Genitourinary: Reports: no symptoms Neurologic/Psychiatric: Reports: tingling, weakness Endocrine: Reports: no symptoms Hematologic/Lymphatic: Reports: no symptoms Allergies: Coded Allergies: No Known Allergies (Unverified , 04/10/17) Subjective Pt reports her pain continues to be stable at a moderate 6/10 on the Ellerbe. D/w nurse. Objective Last 24 Hour Vital Signs Date Time Temp Pulse Resp B/P Pulse Ox O2 Delivery O2 Flow Rate FiO2 04/14/17 08:00 98.2 83 20 154/114 100 Room Air 04/14/17 04:00 99.1 83 18 158/58 99 Room Air 04/14/17 00:00 97.7 77 20 133/72 96 Room Air 04/13/17 21:38 98.2 04/13/17 20:00 98.2 83 20 136/71 98 Room Air 04/13/17 16:00 97.7 80 20 154/71 97 Room Air 04/13/17 12:00 98.2 80 20 173/70 97 Room Air Intake and Output 04/13/17 04/14/17 19:00 07:00 Intake Total 200 ml 110 ml Output Total 500 ml Balance 200 ml -390 ml Intake Oral 200 ml IV Total 110 ml Output Urine Total 500 ml # Bowel Movements 1 Laboratory Tests 04/13/17 21:00: Stool Occult Blood [Pending] 04/14/17 05:30: Sodium Level 131L, Potassium Level 4.8, Chloride Level 92L, Carbon Dioxide Level 27, Anion Gap 12, Blood Urea Nitrogen 43H, Creatinine 5.8H, Estimat Glomerular Filtration Rate 8.8, Glucose Level 104, Calcium Level 8.5L, Phosphorus Level 4.0, Magnesium Level 1.8, Total Bilirubin 0.3, Aspartate Amino Transf (AST/SGOT) 24, Alanine Aminotransferase (ALT/SGPT) 12, Alkaline Phosphatase 131H, C-Reactive Protein, Quantitative 7.8H, Pro-B-Type Natriuretic Peptide 7256H, Total Protein 6.6, Albumin 3.5, Globulin 3.1, Albumin/Globulin Ratio 1.1 Height (Feet): 5 Height (Inches): 2.00 Weight (Pounds): 173 Objective General Appearance: no apparent distress, alert EENT: PERRL/EOMI, normal ENT inspection Neck: normal alignment, supple Cardiovascular: normal rate, regular rhythm Respiratory/Chest: lungs clear, normal breath sounds Abdomen: non tender, soft Extremities: non-tender Edema: trace edema Neurologic: alert, oriented x 3 Skin: warm/dry PATSY MORRISON Apr 14, 2017 09:47
[2017-04-14] MEDS ORDERED: Tubing IV Secondary IV ONE (11:27)
[2017-04-14] MEDS ORDERED: NS 275ml ONE (11:27)
[2017-04-14 12:00] VITALS: BP 154/77
--- NOTE | 2017-04-14 12:04 | Diagnostic Imaging Report ---
Indication: Abdominal pain. Constipation. History renal mass Technique: Spiral acquisitions obtained through the abdomen and pelvis. Patient given oral contrast. No IV contrast utilized, per referring physician request due to history of renal insufficiency. Multiplanar reconstructions were generated. Total dose length product 837 mGycm. CTDIvol(s) 16 mGy. Dose reduction achieved using automated exposure control Comparison: Reference made to renal ultrasound dated 04/12/2017 Findings: Lack of IV contrast limits assessment of the renal parenchyma. There may be slight bulge to the left renal contour as compared to the right, but no discrete renal parenchymal abnormality is seen to correspond to the abnormality described on recent ultrasound. This there are is slight border lobulation to both kidneys. No hydronephrosis or hydroureter, renal or ureteral calculi are demonstrated. There is generalized mild edema of the subcutaneous and abdominal and retroperitoneal fat. Lack of IV contrast limits assessment of the other solid organs. The liver is unremarkable. The gallbladder contains gallstones. The pancreas, spleen, adrenals are unremarkable. There are slightly prominent, abundant, but not frankly enlarged retroperitoneal lymph nodes.. Prominent and abundant nodes are also seen in the mesenteric root and peripancreatic region. The demonstrates what may be a pedunculated subserosal fibroid on the left. No pelvic mass or adenopathy otherwise. The appendix is normal. There is no evidence of diverticulosis or diverticulitis. No small bowel distention. No free or locked related intraperitoneal air or fluid. The distal esophagus, stomach, duodenum are unremarkable. The lung bases demonstrate atelectatic changes and scarring. There is the tip of a dialysis catheter seen in the right atrium. The heart is enlarged. There is a pericardial effusion which is circumferential, measures up to 10 mm thick posteriorly. Infiltration of the right lower quadrant fat is noted, as well as nodular opacities, likely representing prior subcutaneous injections. There is evidence of multiple upper lumbar partial laminectomy defects. Impression: No definite left renal abnormality to correspond to abnormality described on recent renal ultrasound. However, in the absence of IV contrast, renal mass cannot be excluded with confidence. Considered neither MRI, or contrast CT when patient's condition permits. Possible retroperitoneal, mesenteric root, peripancreatic lymphadenopathy. Nonspecific as regards etiology Bilateral pulmonary parenchymal atelectatic changes and scarring Probable pedunculated subserosal uterine fibroid Thyromegaly Pericardial effusion Cholelithiasis Other findings as noted, include again evidence of prior thoracic and lumbar spine surgery, evidence of prior subcutaneous injections, dialysis catheter. The CT scanner at [facility] is accredited by the [employer] and the scans are performed using protocols designed to limit radiation exposure to as low as reasonably achievable to attain images of sufficient resolution adequate for diagnostic evaluation.
[2017-04-14 14:56] LABS: BASOPHILS % (AUTO) 0.7 % (0.0-2.0); EOSINOPHILS % (AUTO) 3.3 % (0.0-3.0); LYMPHOCYTES % (AUTO) 22.3 % (20.0-45.0); MEAN CORPUSCULAR HEMOGLOBIN 32.8 PG (27.0-31.0); MEAN CORPUSCULAR HGB CONC 32.3 G/DL (32.0-36.0); MEAN CORPUSCULAR VOLUME 102 FL (80-99); MEAN PLATELET VOLUME 6.5 FL (6.5-10.1); MONOCYTES % (AUTO) 10.2 % (1.0-10.0); NEUTROPHILS % (AUTO) 63.6 % (45.0-75.0); PLATELET COUNT 239 K/UL (150-450); RED BLOOD COUNT 2.85 M/UL (4.20-5.40); RED CELL DISTRIBUTION WIDTH 14.7 % (11.6-14.8); WHITE BLOOD COUNT 11.2 K/UL (4.8-10.8)
[2017-04-14] MEDS: Norco 5mg/325mg tab ORAL PRN (15:43)
[2017-04-14 16:00] VITALS: BP 175/84
--- NOTE | 2017-04-14 16:18 | Infectious Diseases Prog Note ---
Assessment/Plan Assessment/Plan ASSESSMENT: 1) E coli urosepsis, patient subjectively feels improved today, leukocytosis now decreased after significant increase yesterday. 2) no evidence of line infection at this time w/ blood cx from 04/10 ngtd. repeat blood cx from 04/12 pending, but is now afebrile for 24 hrs. 3) h/o intraabdominal infection 4) renal u/s negative for perinephric abscess, but in L kidney there is a 3 cm circumscribed focus of parenchymal heterogeneity upper pole cortex that on noncontrasted CT scan doesn't appear to be an abscess. 5) elevated serum lactate, now normalized 6) ESRD on HD 7) constipation. 8) elevated alk phos, mild PLAN: --Continue ceftriaxone 2gm IV daily D#2 (04/13 s/p zosyn and vanc D#3) --f/u blood cx from 04/10 and 04/12 --monitor CBC --IV hydration as indicated --If she remains afebrile tonight, and leukocytosis doesn't worsen, and blood cx from 04/10 and 04/12 remain no growth to date, would switch from IV ceftriaxone to PO cefdinir 300mg dosed after HD only for 5 total doses and would be okay for discharge from an ID standpoint. Subjective ROS Limited/Unobtainable: Yes Allergies: Coded Allergies: No Known Allergies (Unverified , 04/10/17) Objective Vital Signs Last 24 Hour Vital Signs Date Time Temp Pulse Resp B/P Pulse Ox O2 Delivery O2 Flow Rate FiO2 04/14/17 13:15 Room Air 04/14/17 13:10 Room Air 04/14/17 13:10 Room Air 04/14/17 12:00 98.1 83 20 154/77 96 Room Air 04/14/17 08:00 98.2 83 20 154/114 100 Room Air 04/14/17 04:00 99.1 83 18 158/58 99 Room Air 04/14/17 00:00 97.7 77 20 133/72 96 Room Air 04/13/17 21:38 98.2 04/13/17 20:00 98.2 83 20 136/71 98 Room Air Height (Feet): 5 Height (Inches): 2.00 Weight (Pounds): 173 Objective GEN: awake, alert, non toxic appearing, appears fatigued HEENT: Mild pale conjunctiva. oral mucosa dry, pharynx w/o exudate or effusion. No icterus. Head normocephalic, neck supple. NECK: No cervical LAD CHEST: Clear to auscultation bilaterally. R chest wall rosamaria cath in place, non tender to palpation over tunnel track. HEART: trachycardic with RAMIN, S1 and S2, no rubs. ABDOMEN: soft, + suprapubic tenderness, non distended, hypo active bowel sounds. EXTREMITIES: No cyanosis, no clubbing, no edema. extremities warm, perfusing distally with brisk cap refill. RUE mediport w/o swelling, warmth, or erythema. NEUROLOGIC: Awake, alert, no focal neurologic motor deficits. : no meléndez in place, no external lesions LYMPH: no axillay LAD RECTAL: deferred Laboratory Tests Test 04/13/17 21:00 04/14/17 05:30 04/14/17 14:45 Stool Occult Blood Negative (NEGATIVE) Sodium Level 131 mEQ/L (135-145) L Potassium Level 4.8 mEQ/L (3.4-4.9) Chloride Level 92 mEQ/L (98-107) L Carbon Dioxide Level 27 mEQ/L (20-30) Anion Gap 12 (5-15) Blood Urea Nitrogen 43 mg/dL (7-23) H Creatinine 5.8 mg/dL (0.5-0.9) H Estimat Glomerular Filtration Rate 8.8 mL/min (>60) Glucose Level 104 mg/dL (74-106) Calcium Level 8.5 mg/dL (8.6-10.2) L Phosphorus Level 4.0 mg/dL (2.5-4.8) Magnesium Level 1.8 mg/dL (1.7-2.5) Total Bilirubin 0.3 mg/dL (0.0-1.2) Aspartate Amino Transf (AST/SGOT) 24 U/L (5-40) Alanine Aminotransferase (ALT/SGPT) 12 U/L (3-33) Alkaline Phosphatase 131 U/L (35-104) H C-Reactive Protein, Quantitative 7.8 mg/dL (< 0.5) H Pro-B-Type Natriuretic Peptide 7256 pg/mL (0-125) H Total Protein 6.6 g/dL (6.6-8.7) Albumin 3.5 g/dL (3.5-5.2) Globulin 3.1 g/dL Albumin/Globulin Ratio 1.1 (1.0-2.7) White Blood Count 11.2 K/UL (4.8-10.8) H Red Blood Count 2.85 M/UL (4.20-5.40) L Hemoglobin 9.4 G/DL (12.0-16.0) L Hematocrit 29.0 % (37.0-47.0) L Mean Corpuscular Volume 102 FL (80-99) H Mean Corpuscular Hemoglobin 32.8 PG (27.0-31.0) H Mean Corpuscular Hemoglobin Concent 32.3 G/DL (32.0-36.0) Red Cell Distribution Width 14.7 % (11.6-14.8) Platelet Count 239 K/UL (150-450) Mean Platelet Volume 6.5 FL (6.5-10.1) Neutrophils (%) (Auto) 63.6 % (45.0-75.0) Lymphocytes (%) (Auto) 22.3 % (20.0-45.0) Monocytes (%) (Auto) 10.2 % (1.0-10.0) H Eosinophils (%) (Auto) 3.3 % (0.0-3.0) H Basophils (%) (Auto) 0.7 % (0.0-2.0) Current Medications Medications (Trade) Dose Ordered Sig/Edda Route PRN Reason Start Time Stop Time Status Last Admin Dose Admin Acetaminophen (Tylenol) 650 mg Q4H PRN ORAL T>100.5 04/12/17 21:45 05/12/17 21:44 Acetaminophen/ Hydrocodone Bitart ([place] 5/325) 1 tab Q4H PRN ORAL Severe Pain (Pain Scale 7-10) 04/12/17 21:00 04/19/17 20:59 04/14/17 15:43 Amlodipine Besylate (Norvasc) 10 mg DAILY ORAL 04/13/17 09:00 05/13/17 08:59 04/13/17 08:53 Atorvastatin Calcium (Lipitor) 80 mg BEDTIME ORAL 04/12/17 21:00 05/12/17 20:59 04/13/17 20:39 Ceftriaxone Sodium/Dextrose (Rocephin/D5W) 110 ml @ 220 mls/hr Q24H IVPB 04/13/17 21:00 04/20/17 20:59 04/13/17 20:38 Chlorhexidine Gluconate (Rosie-Hex 2%) 1 applic QHS TOPIC 04/12/17 22:00 05/12/17 21:59 04/13/17 20:38 Dextrose (Dextrose 50%) STAT PRN IV Hypoglycemia 04/12/17 21:45 05/12/17 21:44 Diphenhydramine HCl (Benadryl) 25 mg TIDPRN PRN ORAL Itching 04/12/17 21:00 05/12/17 20:59 Docusate Sodium (Colace) 100 mg TWICE A DAY ORAL 04/13/17 09:00 05/13/17 08:59 04/14/17 08:21 Escitalopram Oxalate (Lexapro) 5 mg DAILY ORAL 04/13/17 09:00 05/13/17 08:59 04/14/17 08:21 Gabapentin (Neurontin) 100 mg QHS ORAL 04/12/17 22:00 05/12/17 21:59 04/13/17 20:52 Heparin Sodium (Porcine) (Heparin 5000 units/ml) 5,000 units EVERY 12 HOURS SUBQ 04/12/17 22:00 05/12/17 21:59 04/14/17 08:24 Insulin Aspart (NovoLOG) BEFORE MEALS AND HS SUBQ 04/12/17 22:00 05/12/17 21:59 04/14/17 12:23 Lorazepam (Ativan 2mg/ml 1ml) 0.5 mg Q4H PRN IV For Anxiety 04/12/17 21:45 04/19/17 21:44 Methocarbamol (Robaxin) 500 mg Q8H PRN ORAL muscle spasm 04/12/17 21:00 05/12/17 20:59 Morphine Sulfate (Morphine Sulfate) 2 mg Q4H PRN IVP Moderate Pain (Pain Scale 4-6) 04/12/17 21:45 04/19/17 21:44 Morphine Sulfate (Morphine Sulfate) 4 mg Q4H PRN IVP breakthrough Pain 04/12/17 21:45 04/19/17 21:44 Multivitamins (Multivitamins) 1 tab DAILY ORAL 04/13/17 09:00 05/13/17 08:59 04/14/17 08:22 Ondansetron HCl (Zofran) 4 mg Q6H PRN IVP Nausea & Vomiting 04/12/17 21:45 05/12/17 21:44 04/14/17 15:43 Pantoprazole (Protonix) 40 mg DAILY ORAL 04/13/17 09:00 05/13/17 08:59 04/14/17 08:21 Polyethylene Glycol (Miralax) 17 gm HSPRN PRN ORAL Constipation 04/12/17 21:45 05/12/17 21:44 04/13/17 20:34 Sevelamer Carbonate (Renvela) 800 mg THREE TIMES A DAY ORAL 04/13/17 09:00 05/13/17 08:59 04/14/17 12:28 Zolpidem Tartrate 5 mg 5 mg HSPRN PRN ORAL Insomnia 04/12/17 21:45 05/12/17 21:44 Jason Alvarado M.D. Apr 14, 2017 16:18
[2017-04-14] MEDS: Morphine Sulfate 2mg/ml Inj IVP PRN (16:20)
[2017-04-14 20:00] VITALS: BP 97/56
[2017-04-14] MEDS: Atorvastatin 80mg tab ORAL SCH (20:51)
[2017-04-14] MEDS: Dyna-Hex 2% Top Sol 8oz TOPIC SCH (20:51)
[2017-04-14] MEDS: cefTRIAXone 2 GM in D5W 110 ML IVPB SCH (20:51)
[2017-04-15] VITALS: BP 111/72
[2017-04-15 04:00] VITALS: BP 114/56
[2017-04-15] MEDS: NovoLOG Insulin Flexpen SUBQ SCH ×4 (06:24→20:27)
[2017-04-15 08:15] VITALS: BP 111/60
[2017-04-15 08:18] LABS: MEAN CORPUSCULAR HEMOGLOBIN 33.8 PG (27.0-31.0); MEAN CORPUSCULAR HGB CONC 32.9 G/DL (32.0-36.0); MEAN CORPUSCULAR VOLUME 103 FL (80-99); MEAN PLATELET VOLUME 7.5 FL (6.5-10.1); PLATELET COUNT 189 K/UL (150-450); RED BLOOD COUNT 2.83 M/UL (4.20-5.40); RED CELL DISTRIBUTION WIDTH 15.1 % (11.6-14.8); WHITE BLOOD COUNT 23.9 K/UL (4.8-10.8)
[2017-04-15 09:02] LABS: CALCIUM 8.7 mg/dL (8.6-10.2); CREATININE 4.8 mg/dL (0.5-0.9); POTASSIUM 4.5 mEQ/L (3.4-4.9)
[2017-04-15] MEDS: Renvela 800mg Pkt ORAL SCH ×3 (09:37→17:35)
[2017-04-15] MEDS: Escitalopram Oxalate 5mg tab ORAL SCH (09:38)
[2017-04-15] MEDS: Docusate 100mg cap ORAL SCH ×2 (09:39→17:35)
[2017-04-15] MEDS: Heparin 5000 units/ml inj SUBQ SCH ×2 (09:40→20:18)
[2017-04-15] MEDS: Norco 5mg/325mg tab ORAL PRN ×2 (09:50→18:54)
[2017-04-15 10:08] LABS: BAND NEUTROPHILS % (MANUAL) 4 % (0-8); BASOPHILS % (MANUAL) 0 % (0-2); EOSINOPHILS % (MANUAL) 2 % (0-3); LYMPHOCYTES % (MANUAL) 4 % (20-45); NEUTROPHILS % (MANUAL) 88 % (45-75); PLATELET ESTIMATE ADEQUATE; PLATELET MORPHOLOGY NORMAL; TOTAL CELLS COUNTED 100
--- NOTE | 2017-04-15 11:00 | Pulmonology Progress Note ---
Assessment/Plan Assessment/Plan ASSESSMENT sepsis UTI with E coli possible aspiration ( after vomiting 04/14) hypotension ESRD on HD chronic outflow obstruction low back pain anemia of chronic disease breast Ca, s/p L mastectomy and radiation HTN with initial hypotension DM constipation PLAN OF CARE [facility] floor urine cx + E coli, blood cx preliminary negative CXR negative repeat CXR ( vomited 04/14, ? aspiration0 Lumbar X ray no acute changes, + mild degenerative changes renal US with bilateral echogenic kidneys compatible with medical renal disease, Questionable 3 cm solid lesion upper pole cortex left kidney, may simply represent prominent lobulation. Focal pathology not entirely excludable. Distended urinary bladder with mild mural thickening suggesting chronic outflow impediment. subsequently CT A/P done revealed no definite left renal abnormality to correspond to abnormality described on recent renal ultrasound. However, in the absence of IV contrast, renal mass cannot be excluded with confidence. Possible retroperitoneal, mesenteric root, peripancreatic lymphadenopathy. Bilateral pulmonary parenchymal atelectatic changes and scarring abdominal X ray negative hypotension resolved BP management with CCB continue statin BS management with SS of insulin pain management as per pain specialist recommendations DVT GI prophylaxis bowel regimen PT/OT case discussed and evaluated by supervising physician Subjective Allergies: Coded Allergies: No Known Allergies (Unverified , 04/10/17) Subjective leucocytosis with trend up-23.9, low grade fever last night, afebrile this am , Objective Last 24 Hour Vital Signs Date Time Temp Pulse Resp B/P Pulse Ox O2 Delivery O2 Flow Rate FiO2 04/15/17 09:00 85 111/60 04/15/17 08:15 97.6 85 20 111/60 97 Room Air 04/15/17 04:00 97.0 80 20 114/56 94 Room Air 04/15/17 00:00 98.8 60 18 111/72 98 Room Air 04/15/17 00:00 98.8 04/14/17 20:00 100.8 109 18 97/56 98 Room Air 04/14/17 16:52 Room Air 04/14/17 16:00 97.1 89 20 175/84 97 Room Air 04/14/17 13:15 Room Air 04/14/17 13:10 Room Air 04/14/17 13:10 Room Air 04/14/17 12:00 98.1 83 20 154/77 96 Room Air Intake and Output 04/14/17 04/15/17 19:00 07:00 Intake Total 360 ml 110 ml Output Total 2200 ml Balance -1840 ml 110 ml Intake Oral 360 ml IV Total 110 ml Hemodialysis UF 2200 ml # Voids 5 1 # Bowel Movements 2 Objective General Appearance: WD/WN awake, responsive HEENT: normocephalic, atraumatic Respiratory/Chest: chest wall non-tender, lungs clear Cardiovascular: normal peripheral pulses, normal rate Abdomen: normal bowel sounds, no organomegaly Genitourinary: normal external genitalia Extremities: no clubbing 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, no motor/sensory deficits Laboratory Tests 04/14/17 14:45: White Blood Count 11.2H, Red Blood Count 2.85L, Hemoglobin 9.4L, Hematocrit 29.0L, Mean Corpuscular Volume 102H, Mean Corpuscular Hemoglobin 32.8H, Mean Corpuscular Hemoglobin Concent 32.3, Red Cell Distribution Width 14.7, Platelet Count 239, Mean Platelet Volume 6.5, Neutrophils (%) (Auto) 63.6, Lymphocytes (% ) (Auto) 22.3, Monocytes (%) (Auto) 10.2H, Eosinophils (%) (Auto) 3.3H, Basophils (%) (Auto) 0.7 04/15/17 05:15: White Blood Count 23.9#*H, Red Blood Count 2.83L, Hemoglobin 9.6L, Hematocrit 29.0L, Mean Corpuscular Volume 103H, Mean Corpuscular Hemoglobin 33.8H, Mean Corpuscular Hemoglobin Concent 32.9, Red Cell Distribution Width 15.1H, Platelet Count 189, Mean Platelet Volume 7.5, Neutrophils (%) (Auto) , Lymphocytes (%) (Auto) , Monocytes (%) (Auto) , Eosinophils (%) (Auto) , Basophils (%) (Auto) , Differential Total Cells Counted 100, Neutrophils % ( Manual) 88H, Lymphocytes % (Manual) 4L, Monocytes % (Manual) 2, Eosinophils % ( Manual) 2, Basophils % (Manual) 0, Band Neutrophils 4, Platelet Estimate Adequate, Platelet Morphology Normal, Red Blood Cell Morphology Normal, Sodium Level 136, Potassium Level 4.5, Chloride Level 97L, Carbon Dioxide Level 25, Anion Gap 14, Blood Urea Nitrogen 27H, Creatinine 4.8H, Estimat Glomerular Filtration Rate 11.0, Glucose Level 87, Calcium Level 8.7 Current Medications Medications (Trade) Dose Ordered Sig/Edda Route PRN Reason Start Time Stop Time Status Last Admin Dose Admin Acetaminophen (Tylenol) 650 mg Q4H PRN ORAL T>100.5 04/12/17 21:45 05/12/17 21:44 04/14/17 21:47 Acetaminophen/ Hydrocodone Bitart ([place] 5/325) 1 tab Q4H PRN ORAL Severe Pain (Pain Scale 7-10) 04/12/17 21:00 04/19/17 20:59 04/15/17 09:50 Amlodipine Besylate (Norvasc) 10 mg DAILY ORAL 04/13/17 09:00 05/13/17 08:59 04/13/17 08:53 Atorvastatin Calcium (Lipitor) 80 mg BEDTIME ORAL 04/12/17 21:00 05/12/17 20:59 04/14/17 20:51 Ceftriaxone Sodium/Dextrose (Rocephin/D5W) 110 ml @ 220 mls/hr Q24H IVPB 04/13/17 21:00 04/20/17 20:59 04/14/17 20:51 Chlorhexidine Gluconate (Rosie-Hex 2%) 1 applic QHS TOPIC 04/12/17 22:00 05/12/17 21:59 04/14/17 20:51 Dextrose (Dextrose 50%) STAT PRN IV Hypoglycemia 04/12/17 21:45 05/12/17 21:44 Diphenhydramine HCl (Benadryl) 25 mg TIDPRN PRN ORAL Itching 04/12/17 21:00 05/12/17 20:59 Docusate Sodium (Colace) 100 mg TWICE A DAY ORAL 04/13/17 09:00 05/13/17 08:59 04/15/17 09:39 Escitalopram Oxalate (Lexapro) 5 mg DAILY ORAL 04/13/17 09:00 05/13/17 08:59 04/15/17 09:38 Gabapentin (Neurontin) 100 mg QHS ORAL 04/12/17 22:00 05/12/17 21:59 04/14/17 20:51 Heparin Sodium (Porcine) (Heparin 5000 units/ml) 5,000 units EVERY 12 HOURS SUBQ 04/12/17 22:00 05/12/17 21:59 04/15/17 09:40 Insulin Aspart (NovoLOG) BEFORE MEALS AND HS SUBQ 04/12/17 22:00 05/12/17 21:59 04/14/17 21:00 Lorazepam (Ativan 2mg/ml 1ml) 0.5 mg Q4H PRN IV For Anxiety 04/12/17 21:45 04/19/17 21:44 Methocarbamol (Robaxin) 500 mg Q8H PRN ORAL muscle spasm 04/12/17 21:00 05/12/17 20:59 Morphine Sulfate (Morphine Sulfate) 2 mg Q4H PRN IVP Moderate Pain (Pain Scale 4-6) 04/12/17 21:45 04/19/17 21:44 04/14/17 16:20 Morphine Sulfate (Morphine Sulfate) 4 mg Q4H PRN IVP breakthrough Pain 04/12/17 21:45 04/19/17 21:44 Multivitamins (Multivitamins) 1 tab DAILY ORAL 04/13/17 09:00 05/13/17 08:59 04/15/17 09:38 Ondansetron HCl (Zofran) 4 mg Q6H PRN IVP Nausea & Vomiting 04/12/17 21:45 05/12/17 21:44 04/14/17 15:43 Pantoprazole (Protonix) 40 mg DAILY ORAL 04/13/17 09:00 05/13/17 08:59 04/15/17 09:39 Polyethylene Glycol (Miralax) 17 gm HSPRN PRN ORAL Constipation 04/12/17 21:45 05/12/17 21:44 04/13/17 20:34 Sevelamer Carbonate (Renvela) 800 mg THREE TIMES A DAY ORAL 04/13/17 09:00 05/13/17 08:59 04/15/17 09:37 Zolpidem Tartrate 5 mg 5 mg HSPRN PRN ORAL Insomnia 04/12/17 21:45 05/12/17 21:44 Nola Chen NP ([facility]anchtein) Apr 15, 2017 11:00
--- NOTE | 2017-04-15 11:05 | General Progress Note ---
Assessment/Plan Status: stable - from renal stand Assessment/Plan Status; ESRD on HD M W Fr UTI ? ??Line infection E coli urosepsis, patient subjectively feels improved no evidence of line infection at this time . Intractable back pain HypoTension on admit h/o Breast Ca s/p Chemo and left mastectomy Plan: HD Monday Per ID advise adjust BP meds- Per PMD , consultants Subjective ROS Limited/Unobtainable: No Constitutional: Reports: other - non toxic Allergies: Coded Allergies: No Known Allergies (Unverified , 04/10/17) Objective Last 24 Hour Vital Signs Date Time Temp Pulse Resp B/P Pulse Ox O2 Delivery O2 Flow Rate FiO2 04/15/17 09:00 85 111/60 04/15/17 08:15 97.6 85 20 111/60 97 Room Air 04/15/17 04:00 97.0 80 20 114/56 94 Room Air 04/15/17 00:00 98.8 60 18 111/72 98 Room Air 04/15/17 00:00 98.8 04/14/17 20:00 100.8 109 18 97/56 98 Room Air 04/14/17 16:52 Room Air 04/14/17 16:00 97.1 89 20 175/84 97 Room Air 04/14/17 13:15 Room Air 04/14/17 13:10 Room Air 04/14/17 13:10 Room Air 04/14/17 12:00 98.1 83 20 154/77 96 Room Air Intake and Output 04/14/17 04/15/17 19:00 07:00 Intake Total 360 ml 110 ml Output Total 2200 ml Balance -1840 ml 110 ml Intake Oral 360 ml IV Total 110 ml Hemodialysis UF 2200 ml # Voids 5 1 # Bowel Movements 2 Laboratory Tests 04/14/17 14:45: White Blood Count 11.2H, Red Blood Count 2.85L, Hemoglobin 9.4L, Hematocrit 29.0L, Mean Corpuscular Volume 102H, Mean Corpuscular Hemoglobin 32.8H, Mean Corpuscular Hemoglobin Concent 32.3, Red Cell Distribution Width 14.7, Platelet Count 239, Mean Platelet Volume 6.5, Neutrophils (%) (Auto) 63.6, Lymphocytes (% ) (Auto) 22.3, Monocytes (%) (Auto) 10.2H, Eosinophils (%) (Auto) 3.3H, Basophils (%) (Auto) 0.7 04/15/17 05:15: White Blood Count 23.9#*H, Red Blood Count 2.83L, Hemoglobin 9.6L, Hematocrit 29.0L, Mean Corpuscular Volume 103H, Mean Corpuscular Hemoglobin 33.8H, Mean Corpuscular Hemoglobin Concent 32.9, Red Cell Distribution Width 15.1H, Platelet Count 189, Mean Platelet Volume 7.5, Neutrophils (%) (Auto) , Lymphocytes (%) (Auto) , Monocytes (%) (Auto) , Eosinophils (%) (Auto) , Basophils (%) (Auto) , Differential Total Cells Counted 100, Neutrophils % ( Manual) 88H, Lymphocytes % (Manual) 4L, Monocytes % (Manual) 2, Eosinophils % ( Manual) 2, Basophils % (Manual) 0, Band Neutrophils 4, Platelet Estimate Adequate, Platelet Morphology Normal, Red Blood Cell Morphology Normal, Sodium Level 136, Potassium Level 4.5, Chloride Level 97L, Carbon Dioxide Level 25, Anion Gap 14, Blood Urea Nitrogen 27H, Creatinine 4.8H, Estimat Glomerular Filtration Rate 11.0, Glucose Level 87, Calcium Level 8.7 Height (Feet): 5 Height (Inches): 2.00 Weight (Pounds): 173 General Appearance: no apparent distress Cardiovascular: other - HR 85 Respiratory/Chest: decreased breath sounds Abdomen: soft Objective no change in PE ROLANDO AN Apr 15, 2017 11:05
[2017-04-15 11:56] VITALS: BP 137/59
[2017-04-15] MEDS ORDERED: DuoNeb 0.5-3(2.5)mg/3ml neb HHN PRN (13:45)
[2017-04-15 15:48] VITALS: BP 136/64
--- NOTE | 2017-04-15 15:57 | Infectious Diseases Prog Note ---
Assessment/Plan Assessment/Plan ASSESSMENT: repeat fever x1 o/n with return of leukocytosis. lung exam is clear without pleuritic pain, and patient looks well today, and i expect her PCXR that is pending to be negative for pna. main complaint is occ emesis, subtle RLQ pain w/ o peritoneal signs, and some significant constipation. I think her leukocytosis is a stress response from obstipation, however if she has recurrence of fevers will need to repeat blood cx x2 sets although her two lines look fine today. 1) E coli urosepsis 2) no evidence of line infection (R chest tunneled HD cath and RUE mediport) at this time w/ blood cx from 04/10 and 04/12 ngtd. 3) h/o intraabdominal infection 4) renal u/s negative for perinephric abscess, but in L kidney there is a 3 cm circumscribed focus of parenchymal heterogeneity upper pole cortex that on noncontrasted CT scan doesn't appear to be an abscess. 5) elevated serum lactate, now normalized 6) ESRD on HD 7) constipation, moderate to severe. 8) elevated alk phos, mild PLAN: --Continue ceftriaxone 2gm IV daily D#3 (04/13 s/p zosyn and vanc D#3) --f/u blood cx from 04/10 and 04/12 --monitor CBC, repeat in AM --IV hydration as indicated --Miralax 17gm PO x1 now. Subjective Constitutional: Reports: no symptoms Respiratory: Reports: no symptoms Cardiovascular: Reports: no symptoms Gastrointestinal/Abdominal: Reports: bloating, constipation, vomiting Skin: Reports: no symptoms Musculoskeletal: Reports: pain Allergies: Coded Allergies: No Known Allergies (Unverified , 04/10/17) Objective Vital Signs Last 24 Hour Vital Signs Date Time Temp Pulse Resp B/P Pulse Ox O2 Delivery O2 Flow Rate FiO2 04/15/17 15:48 98.4 79 19 136/64 96 Room Air 04/15/17 11:56 98.7 77 20 137/59 99 Room Air 04/15/17 09:00 85 111/60 04/15/17 08:15 97.6 85 20 111/60 97 Room Air 04/15/17 04:00 97.0 80 20 114/56 94 Room Air 04/15/17 00:00 98.8 60 18 111/72 98 Room Air 04/15/17 00:00 98.8 04/14/17 20:00 100.8 109 18 97/56 98 Room Air 04/14/17 16:52 Room Air 04/14/17 16:00 97.1 89 20 175/84 97 Room Air Height (Feet): 5 Height (Inches): 2.00 Weight (Pounds): 172 Objective GEN: awake, alert, non toxic appearing, appears fatigued HEENT: Mild pale conjunctiva. oral mucosa dry, pharynx w/o exudate or effusion. No icterus. Head normocephalic, neck supple. NECK: No cervical LAD CHEST: Clear to auscultation bilaterally. R chest wall rosamaria cath in place, non tender to palpation over tunnel track. HEART: trachycardic with RAMIN, S1 and S2, no rubs. ABDOMEN: soft, + suprapubic tenderness, non distended, hypo active bowel sounds. EXTREMITIES: No cyanosis, no clubbing, no edema. extremities warm, perfusing distally with brisk cap refill. RUE mediport w/o swelling, warmth, or erythema. NEUROLOGIC: Awake, alert, no focal neurologic motor deficits. : no meléndez in place, no external lesions LYMPH: no axillay LAD RECTAL: deferred Laboratory Tests Test 04/15/17 05:15 White Blood Count 23.9 K/UL (4.8-10.8) #*H Red Blood Count 2.83 M/UL (4.20-5.40) L Hemoglobin 9.6 G/DL (12.0-16.0) L Hematocrit 29.0 % (37.0-47.0) L Mean Corpuscular Volume 103 FL (80-99) H Mean Corpuscular Hemoglobin 33.8 PG (27.0-31.0) H Mean Corpuscular Hemoglobin Concent 32.9 G/DL (32.0-36.0) Red Cell Distribution Width 15.1 % (11.6-14.8) H Platelet Count 189 K/UL (150-450) Mean Platelet Volume 7.5 FL (6.5-10.1) Neutrophils (%) (Auto) % (45.0-75.0) Lymphocytes (%) (Auto) % (20.0-45.0) Monocytes (%) (Auto) % (1.0-10.0) Eosinophils (%) (Auto) % (0.0-3.0) Basophils (%) (Auto) % (0.0-2.0) Differential Total Cells Counted 100 Neutrophils % (Manual) 88 % (45-75) H Lymphocytes % (Manual) 4 % (20-45) L Monocytes % (Manual) 2 % (1-10) Eosinophils % (Manual) 2 % (0-3) Basophils % (Manual) 0 % (0-2) Band Neutrophils 4 % (0-8) Platelet Estimate Adequate Platelet Morphology Normal Red Blood Cell Morphology Normal Sodium Level 136 mEQ/L (135-145) Potassium Level 4.5 mEQ/L (3.4-4.9) Chloride Level 97 mEQ/L (98-107) L Carbon Dioxide Level 25 mEQ/L (20-30) Anion Gap 14 (5-15) Blood Urea Nitrogen 27 mg/dL (7-23) H Creatinine 4.8 mg/dL (0.5-0.9) H Estimat Glomerular Filtration Rate 11.0 mL/min (>60) Glucose Level 87 mg/dL (74-106) Calcium Level 8.7 mg/dL (8.6-10.2) Current Medications Medications (Trade) Dose Ordered Sig/Edda Route PRN Reason Start Time Stop Time Status Last Admin Dose Admin Acetaminophen (Tylenol) 650 mg Q4H PRN ORAL T>100.5 04/12/17 21:45 05/12/17 21:44 04/14/17 21:47 Acetaminophen/ Hydrocodone Bitart ([place] 5/325) 1 tab Q4H PRN ORAL Severe Pain (Pain Scale 7-10) 04/12/17 21:00 04/19/17 20:59 04/15/17 09:50 Albuterol/ Ipratropium (DuoNeb 0.5-3(2.5)mg/3ml) 3 ml Q4H PRN HHN Shortness of Breath 04/15/17 13:45 04/20/17 13:44 Amlodipine Besylate (Norvasc) 2.5 mg DAILY ORAL 04/16/17 09:00 05/16/17 08:59 Atorvastatin Calcium (Lipitor) 80 mg BEDTIME ORAL 04/12/17 21:00 05/12/17 20:59 8/18/17 20:51 Ceftriaxone Sodium/Dextrose (Rocephin/D5W) 110 ml @ 220 mls/hr Q24H IVPB 04/13/17 21:00 04/20/17 20:59 04/14/17 20:51 Chlorhexidine Gluconate (Rosie-Hex 2%) 1 applic QHS TOPIC 04/12/17 22:00 05/12/17 21:59 04/14/17 20:51 Clonidine HCl (Catapres) 0.1 mg Q4H PRN ORAL for BP over 160 syst 04/15/17 11:00 05/15/17 10:59 Dextrose (Dextrose 50%) STAT PRN IV Hypoglycemia 04/12/17 21:45 05/12/17 21:44 Diphenhydramine HCl (Benadryl) 25 mg TIDPRN PRN ORAL Itching 04/12/17 21:00 05/12/17 20:59 Docusate Sodium (Colace) 100 mg TWICE A DAY ORAL 04/13/17 09:00 05/13/17 08:59 04/15/17 09:39 Escitalopram Oxalate (Lexapro) 5 mg DAILY ORAL 04/13/17 09:00 05/13/17 08:59 04/15/17 09:38 Gabapentin (Neurontin) 100 mg QHS ORAL 04/12/17 22:00 05/12/17 21:59 04/14/17 20:51 Heparin Sodium (Porcine) (Heparin 5000 units/ml) 5,000 units EVERY 12 HOURS SUBQ 04/12/17 22:00 05/12/17 21:59 04/15/17 09:40 Insulin Aspart (NovoLOG) BEFORE MEALS AND HS SUBQ 04/12/17 22:00 05/12/17 21:59 04/14/17 21:00 Lorazepam (Ativan 2mg/ml 1ml) 0.5 mg Q4H PRN IV For Anxiety 04/12/17 21:45 04/19/17 21:44 Methocarbamol (Robaxin) 500 mg Q8H PRN ORAL muscle spasm 04/12/17 21:00 05/12/17 20:59 Morphine Sulfate (Morphine Sulfate) 2 mg Q4H PRN IVP Moderate Pain (Pain Scale 4-6) 04/12/17 21:45 04/19/17 21:44 04/14/17 16:20 Morphine Sulfate (Morphine Sulfate) 4 mg Q4H PRN IVP breakthrough Pain 04/12/17 21:45 04/19/17 21:44 Multivitamins (Multivitamins) 1 tab DAILY ORAL 04/13/17 09:00 05/13/17 08:59 04/15/17 09:38 Ondansetron HCl (Zofran) 4 mg Q6H PRN IVP Nausea & Vomiting 04/12/17 21:45 05/12/17 21:44 04/15/17 11:13 Pantoprazole (Protonix) 40 mg DAILY ORAL 04/13/17 09:00 05/13/17 08:59 04/15/17 09:39 Polyethylene Glycol (Miralax) 17 gm HSPRN PRN ORAL Constipation 04/12/17 21:45 05/12/17 21:44 04/13/17 20:34 Sevelamer Carbonate (Renvela) 800 mg THREE TIMES A DAY ORAL 04/13/17 09:00 05/13/17 08:59 04/15/17 13:48 Zolpidem Tartrate 5 mg 5 mg HSPRN PRN ORAL Insomnia 04/12/17 21:45 05/12/17 21:44 Jason Alvarado M.D. Apr 15, 2017 15:57
[2017-04-15] MEDS ORDERED: Miralax 17gm pkt ORAL ONE (16:00)
[2017-04-15 17:29] LABS: ALBUMIN/GLOBULIN RATIO 1.1 (1.0-2.7); CALCIUM 8.5 mg/dL (8.6-10.2); CREATININE 5.4 mg/dL (0.5-0.9); GLOMERULAR FILTRATION RATE 9.6 mL/min (>60); POTASSIUM 4.8 mEQ/L (3.4-4.9); TOTAL PROTEIN 6.2 g/dL (6.6-8.7)
[2017-04-15 20:00] VITALS: BP 143/77
[2017-04-15] MEDS: Atorvastatin 80mg tab ORAL SCH (20:16)
[2017-04-15] MEDS: Dyna-Hex 2% Top Sol 8oz TOPIC SCH (20:16)
[2017-04-15] MEDS: Morphine Sulfate 2mg/ml Inj IVP PRN (20:17)
[2017-04-15] MEDS: cefTRIAXone 2 GM in D5W 110 ML IVPB SCH (20:17)
[2017-04-16] VITALS: BP 138/72
[2017-04-16 04:00] VITALS: BP 141/75
[2017-04-16] MEDS: Morphine Sulfate 2mg/ml Inj IVP PRN (05:26)
[2017-04-16] MEDS: NovoLOG Insulin Flexpen SUBQ SCH ×4 (06:12→21:00)
[2017-04-16 07:53] LABS: BASOPHILS % (AUTO) 1.1 % (0.0-2.0); EOSINOPHILS % (AUTO) 2.6 % (0.0-3.0); LYMPHOCYTES % (AUTO) 19.1 % (20.0-45.0); MEAN CORPUSCULAR HEMOGLOBIN 33.2 PG (27.0-31.0); MEAN CORPUSCULAR HGB CONC 32.2 G/DL (32.0-36.0); MEAN CORPUSCULAR VOLUME 103 FL (80-99); MEAN PLATELET VOLUME 7.2 FL (6.5-10.1); NEUTROPHILS % (AUTO) 65.1 % (45.0-75.0); PLATELET COUNT 199 K/UL (150-450); RED BLOOD COUNT 2.76 M/UL (4.20-5.40); WHITE BLOOD COUNT 14.6 K/UL (4.8-10.8)
[2017-04-16 08:20] VITALS: BP 147/76
--- NOTE | 2017-04-16 09:26 | General Progress Note ---
Assessment/Plan Status: stable Assessment/Plan Status; ESRD on HD M W Fr UTI ? ??Line infection E coli urosepsis, patient subjectively feels improved no evidence of line infection at this time . Intractable back pain HypoTension on admit h/o Breast Ca s/p Chemo and left mastectomy Plan: HD Monday, in am- Per ID advise adjust BP meds- Per PMD , consultants Subjective ROS Limited/Unobtainable: No Allergies: Coded Allergies: No Known Allergies (Unverified , 04/10/17) Objective Last 24 Hour Vital Signs Date Time Temp Pulse Resp B/P Pulse Ox O2 Delivery O2 Flow Rate FiO2 04/16/17 08:20 98.1 73 16 147/76 97 Room Air 04/16/17 05:56 98.2 04/16/17 04:00 98.2 78 20 141/75 95 Room Air 04/16/17 02:00 98.6 04/16/17 00:00 98.6 75 20 138/72 97 Room Air 04/15/17 22:17 84 16 Room Air 21 04/15/17 20:00 99.5 80 20 143/77 97 Room Air 04/15/17 19:53 98.4 04/15/17 15:48 98.4 79 19 136/64 96 Room Air 04/15/17 11:56 98.7 77 20 137/59 99 Room Air Intake and Output 04/15/17 04/16/17 19:00 07:00 Intake Total 720 ml Output Total 20 ml Balance 700 ml Intake Oral 720 ml Output Urine Total 20 ml # Voids 2 Laboratory Tests 04/15/17 16:56: Sodium Level 134L, Potassium Level 4.8, Chloride Level 96L, Carbon Dioxide Level 25, Anion Gap 13, Blood Urea Nitrogen 31H, Creatinine 5.4H, Estimat Glomerular Filtration Rate 9.6, Glucose Level 143H, Calcium Level 8.5L, Total Bilirubin 0.2, Aspartate Amino Transf (AST/SGOT) 47H, Alanine Aminotransferase ( ALT/SGPT) 31, Alkaline Phosphatase 168H, Total Protein 6.2L, Albumin 3.3L, Globulin 2.9, Albumin/Globulin Ratio 1.1, Lipase 16 04/16/17 06:30: White Blood Count 14.6H, Red Blood Count 2.76L, Hemoglobin 9.2L, Hematocrit 28.5L, Mean Corpuscular Volume 103H, Mean Corpuscular Hemoglobin 33.2H, Mean Corpuscular Hemoglobin Concent 32.2, Red Cell Distribution Width 15.0H, Platelet Count 199, Mean Platelet Volume 7.2, Neutrophils (%) (Auto) 65.1, Lymphocytes (%) (Auto) 19.1L, Monocytes (%) (Auto) 12.0H, Eosinophils (%) (Auto ) 2.6, Basophils (%) (Auto) 1.1 Height (Feet): 5 Height (Inches): 2.00 Weight (Pounds): 172 General Appearance: no apparent distress Objective no change in PE ROLANDO AN Apr 16, 2017 09:26
[2017-04-16] MEDS: Norco 5mg/325mg tab ORAL PRN (09:35)
[2017-04-16] MEDS: Renvela 800mg Pkt ORAL SCH ×3 (09:35→18:00)
[2017-04-16] MEDS: Escitalopram Oxalate 5mg tab ORAL SCH (09:35)
[2017-04-16] MEDS: Docusate 100mg cap ORAL SCH ×2 (09:35→18:00)
[2017-04-16] MEDS: Heparin 5000 units/ml inj SUBQ SCH ×2 (09:36→21:00)
--- NOTE | 2017-04-16 10:36 | Diagnostic Imaging Report ---
Indication: Shortness of breath Technique: XRAY CHEST 1 V Comparison: 04/10/17 Findings: Right PICC line and right internal jugular permacath are again noted. Cardiac silhouette is prominent. Atherosclerotic changes are seen. Mild interstitial edema is again noted. Left axillary clips are unchanged. Osseous structures are stable. Impression: Cardiomegaly with mild pulmonary congestion and interstitial edema.
--- NOTE | 2017-04-16 11:46 | Pulmonology Progress Note ---
Assessment/Plan Assessment/Plan ASSESSMENT sepsis UTI with E coli possible aspiration ( after vomiting 04/14) hypotension ESRD on HD chronic outflow obstruction low back pain anemia of chronic disease breast Ca, s/p L mastectomy and radiation HTN with initial hypotension DM constipation PLAN OF CARE MS floor urine cx + E coli, blood cx preliminary negative CXR negative repeated CXR 04/15 ( vomited 04/14, ? aspiration) with evidence of Cardiomegaly with mild pulmonary congestion and interstitial edema. Lumbar X ray no acute changes, + mild degenerative changes renal US with bilateral echogenic kidneys compatible with medical renal disease, Questionable 3 cm solid lesion upper pole cortex left kidney, may simply represent prominent lobulation. Focal pathology not entirely excludable. Distended urinary bladder with mild mural thickening suggesting chronic outflow impediment. subsequently CT A/P done revealed no definite left renal abnormality to correspond to abnormality described on recent renal ultrasound. However, in the absence of IV contrast, renal mass cannot be excluded with confidence. Possible retroperitoneal, mesenteric root, peripancreatic lymphadenopathy. Bilateral pulmonary parenchymal atelectatic changes and scarring abdominal X ray negative hypotension resolved BP management with CCB continue statin BS management with SS of insulin pain management as per pain specialist recommendations DVT GI prophylaxis bowel regimen PT/OT dc plan for am after ID clearance case discussed and evaluated by supervising physician Subjective Allergies: Coded Allergies: No Known Allergies (Unverified , 04/10/17) Subjective leucocytosis trending down today,afebrile, but low grade fever last night walked with PT + back pain Objective Last 24 Hour Vital Signs Date Time Temp Pulse Resp B/P Pulse Ox O2 Delivery O2 Flow Rate FiO2 04/16/17 09:35 73 147/76 04/16/17 08:20 98.1 73 16 147/76 97 Room Air 04/16/17 05:56 98.2 04/16/17 04:00 98.2 78 20 141/75 95 Room Air 04/16/17 02:00 98.6 04/16/17 00:00 98.6 75 20 138/72 97 Room Air 04/15/17 22:17 84 16 Room Air 21 04/15/17 20:00 99.5 80 20 143/77 97 Room Air 04/15/17 19:53 98.4 04/15/17 15:48 98.4 79 19 136/64 96 Room Air 8/19/17 11:56 98.7 77 20 137/59 99 Room Air Intake and Output 04/15/17 04/16/17 19:00 07:00 Intake Total 720 ml Output Total 20 ml Balance 700 ml Intake Oral 720 ml Output Urine Total 20 ml # Voids 2 Objective General Appearance: WD/WN awake, responsive HEENT: normocephalic, atraumatic Respiratory/Chest: chest wall non-tender, lungs clear Cardiovascular: normal peripheral pulses, normal rate Abdomen: normal bowel sounds, no organomegaly Genitourinary: normal external genitalia Extremities: no clubbing 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, no motor/sensory deficits Laboratory Tests 04/15/17 16:56: Sodium Level 134L, Potassium Level 4.8, Chloride Level 96L, Carbon Dioxide Level 25, Anion Gap 13, Blood Urea Nitrogen 31H, Creatinine 5.4H, Estimat Glomerular Filtration Rate 9.6, Glucose Level 143H, Calcium Level 8.5L, Total Bilirubin 0.2, Aspartate Amino Transf (AST/SGOT) 47H, Alanine Aminotransferase ( ALT/SGPT) 31, Alkaline Phosphatase 168H, Total Protein 6.2L, Albumin 3.3L, Globulin 2.9, Albumin/Globulin Ratio 1.1, Lipase 16 04/16/17 06:30: White Blood Count 14.6H, Red Blood Count 2.76L, Hemoglobin 9.2L, Hematocrit 28.5L, Mean Corpuscular Volume 103H, Mean Corpuscular Hemoglobin 33.2H, Mean Corpuscular Hemoglobin Concent 32.2, Red Cell Distribution Width 15.0H, Platelet Count 199, Mean Platelet Volume 7.2, Neutrophils (%) (Auto) 65.1, Lymphocytes (%) (Auto) 19.1L, Monocytes (%) (Auto) 12.0H, Eosinophils (%) (Auto ) 2.6, Basophils (%) (Auto) 1.1 Current Medications Medications (Trade) Dose Ordered Sig/Edda Route PRN Reason Start Time Stop Time Status Last Admin Dose Admin Acetaminophen (Tylenol) 650 mg Q4H PRN ORAL T>100.5 04/12/17 21:45 05/12/17 21:44 04/16/17 01:23 Acetaminophen/ Hydrocodone Bitart ([place] 5/325) 1 tab Q4H PRN ORAL Severe Pain (Pain Scale 7-10) 04/12/17 21:00 04/19/17 20:59 04/16/17 09:35 Albuterol/ Ipratropium (DuoNeb 0.5-3(2.5)mg/3ml) 3 ml Q4H PRN HHN Shortness of Breath 04/15/17 13:45 04/20/17 13:44 Amlodipine Besylate (Norvasc) 2.5 mg DAILY ORAL 04/16/17 09:00 05/16/17 08:59 04/16/17 09:35 Atorvastatin Calcium (Lipitor) 80 mg BEDTIME ORAL 04/12/17 21:00 05/12/17 20:59 04/15/17 20:16 Ceftriaxone Sodium/Dextrose (Rocephin/D5W) 110 ml @ 220 mls/hr Q24H IVPB 04/13/17 21:00 04/20/17 20:59 04/15/17 20:17 Chlorhexidine Gluconate (Rosie-Hex 2%) 1 applic QHS TOPIC 04/12/17 22:00 05/12/17 21:59 04/15/17 20:16 Clonidine HCl (Catapres) 0.1 mg Q4H PRN ORAL for BP over 160 syst 04/15/17 11:00 05/15/17 10:59 Dextrose (Dextrose 50%) STAT PRN IV Hypoglycemia 04/12/17 21:45 05/12/17 21:44 Diphenhydramine HCl (Benadryl) 25 mg TIDPRN PRN ORAL Itching 04/12/17 21:00 05/12/17 20:59 Docusate Sodium (Colace) 100 mg TWICE A DAY ORAL 04/13/17 09:00 05/13/17 08:59 04/16/17 09:35 Escitalopram Oxalate (Lexapro) 5 mg DAILY ORAL 04/13/17 09:00 05/13/17 08:59 04/16/17 09:35 Gabapentin (Neurontin) 100 mg QHS ORAL 04/12/17 22:00 05/12/17 21:59 04/15/17 20:16 Heparin Sodium (Porcine) (Heparin 5000 units/ml) 5,000 units EVERY 12 HOURS SUBQ 04/12/17 22:00 05/12/17 21:59 04/16/17 09:36 Insulin Aspart (NovoLOG) BEFORE MEALS AND HS SUBQ 04/12/17 22:00 05/12/17 21:59 04/15/17 20:27 Lorazepam (Ativan 2mg/ml 1ml) 0.5 mg Q4H PRN IV For Anxiety 04/12/17 21:45 04/19/17 21:44 Methocarbamol (Robaxin) 500 mg Q8H PRN ORAL muscle spasm 04/12/17 21:00 05/12/17 20:59 Morphine Sulfate (Morphine Sulfate) 2 mg Q4H PRN IVP Moderate Pain (Pain Scale 4-6) 04/12/17 21:45 04/19/17 21:44 04/16/17 05:26 Morphine Sulfate (Morphine Sulfate) 4 mg Q4H PRN IVP breakthrough Pain 04/12/17 21:45 04/19/17 21:44 Multivitamins (Multivitamins) 1 tab DAILY ORAL 04/13/17 09:00 05/13/17 08:59 04/16/17 09:34 Ondansetron HCl (Zofran) 4 mg Q6H PRN IVP Nausea & Vomiting 04/12/17 21:45 05/12/17 21:44 04/16/17 09:57 Pantoprazole (Protonix) 40 mg DAILY ORAL 04/13/17 09:00 05/13/17 08:59 04/16/17 09:34 Polyethylene Glycol (Miralax) 17 gm HSPRN PRN ORAL Constipation 04/12/17 21:45 05/12/17 21:44 04/13/17 20:34 Sevelamer Carbonate (Renvela) 800 mg THREE TIMES A DAY ORAL 04/13/17 09:00 05/13/17 08:59 04/16/17 09:35 Zolpidem Tartrate 5 mg 5 mg HSPRN PRN ORAL Insomnia 04/12/17 21:45 05/12/17 21:44 Gustavo ZaldivarNola kwon NP Apr 16, 2017 11:46
[2017-04-16 12:05] VITALS: BP 115/51
--- NOTE | 2017-04-16 13:51 | Infectious Diseases Prog Note ---
Assessment/Plan Assessment/Plan ASSESSMENT: 1) E coli urosepsis 2) no evidence of line infection (R chest tunneled HD cath and RUE mediport) at this time w/ blood cx from 04/10 and 04/12 ngtd. 3) h/o intraabdominal infection 4) renal u/s negative for perinephric abscess, but in L kidney there is a 3 cm circumscribed focus of parenchymal heterogeneity upper pole cortex that on noncontrasted CT scan doesn't appear to be an abscess. 5) elevated serum lactate, now normalized 6) ESRD on HD 7) constipation, moderate to severe. s/p miralax yesterday 8) elevated alk phos, mild 9) leukocytosis, downtrending PLAN: --on ceftriaxone 2gm IV daily D#4. Switch to Cefdinir 300mg PO dosed after dialysis for 5 total doses. okay for discharge from ID perspective. (04/13 s/p zosyn and vanc D#3) --f/u blood cx from 04/12 --monitor CBC, repeat in AM --IV hydration as indicated --Miralax 17gm PO x1 now. Subjective Constitutional: Reports: no symptoms Respiratory: Reports: no symptoms Gastrointestinal/Abdominal: Reports: bloating Skin: Reports: no symptoms Allergies: Coded Allergies: No Known Allergies (Unverified , 04/10/17) Objective Vital Signs Last 24 Hour Vital Signs Date Time Temp Pulse Resp B/P Pulse Ox O2 Delivery O2 Flow Rate FiO2 04/16/17 12:05 99.0 80 18 115/51 98 04/16/17 09:35 73 147/76 04/16/17 08:20 98.1 73 16 147/76 97 Room Air 04/16/17 05:56 98.2 04/16/17 04:00 98.2 78 20 141/75 95 Room Air 04/16/17 02:00 98.6 04/16/17 00:00 98.6 75 20 138/72 97 Room Air 04/15/17 22:17 84 16 Room Air 21 04/15/17 20:00 99.5 80 20 143/77 97 Room Air 04/15/17 19:53 98.4 04/15/17 15:48 98.4 79 19 136/64 96 Room Air Height (Feet): 5 Height (Inches): 2.00 Weight (Pounds): 171 Objective GEN: awake, alert, non toxic appearing, appears fatigued HEENT: Mild pale conjunctiva. oral mucosa dry, pharynx w/o exudate or effusion. No icterus. Head normocephalic, neck supple. NECK: No cervical LAD CHEST: Clear to auscultation bilaterally. R chest wall rosamaria cath in place, non tender to palpation over tunnel track. HEART: trachycardic with RAMIN, S1 and S2, no rubs. ABDOMEN: soft, + suprapubic tenderness, non distended, hypo active bowel sounds. EXTREMITIES: No cyanosis, no clubbing, no edema. extremities warm, perfusing distally with brisk cap refill. RUE mediport w/o swelling, warmth, or erythema. NEUROLOGIC: Awake, alert, no focal neurologic motor deficits. : no meléndez in place, no external lesions LYMPH: no axillay LAD RECTAL: deferred Laboratory Tests Test 04/15/17 16:56 04/16/17 06:30 Sodium Level 134 mEQ/L (135-145) L Potassium Level 4.8 mEQ/L (3.4-4.9) Chloride Level 96 mEQ/L (98-107) L Carbon Dioxide Level 25 mEQ/L (20-30) Anion Gap 13 (5-15) Blood Urea Nitrogen 31 mg/dL (7-23) H Creatinine 5.4 mg/dL (0.5-0.9) H Estimat Glomerular Filtration Rate 9.6 mL/min (>60) Glucose Level 143 mg/dL (74-106) H Calcium Level 8.5 mg/dL (8.6-10.2) L Total Bilirubin 0.2 mg/dL (0.0-1.2) Aspartate Amino Transf (AST/SGOT) 47 U/L (5-40) H Alanine Aminotransferase (ALT/SGPT) 31 U/L (3-33) Alkaline Phosphatase 168 U/L (35-104) H Total Protein 6.2 g/dL (6.6-8.7) L Albumin 3.3 g/dL (3.5-5.2) L Globulin 2.9 g/dL Albumin/Globulin Ratio 1.1 (1.0-2.7) Lipase 16 U/L (< 60) White Blood Count 14.6 K/UL (4.8-10.8) H Red Blood Count 2.76 M/UL (4.20-5.40) L Hemoglobin 9.2 G/DL (12.0-16.0) L Hematocrit 28.5 % (37.0-47.0) L Mean Corpuscular Volume 103 FL (80-99) H Mean Corpuscular Hemoglobin 33.2 PG (27.0-31.0) H Mean Corpuscular Hemoglobin Concent 32.2 G/DL (32.0-36.0) Red Cell Distribution Width 15.0 % (11.6-14.8) H Platelet Count 199 K/UL (150-450) Mean Platelet Volume 7.2 FL (6.5-10.1) Neutrophils (%) (Auto) 65.1 % (45.0-75.0) Lymphocytes (%) (Auto) 19.1 % (20.0-45.0) L Monocytes (%) (Auto) 12.0 % (1.0-10.0) H Eosinophils (%) (Auto) 2.6 % (0.0-3.0) Basophils (%) (Auto) 1.1 % (0.0-2.0) Current Medications Medications (Trade) Dose Ordered Sig/Edda Route PRN Reason Start Time Stop Time Status Last Admin Dose Admin Acetaminophen (Tylenol) 650 mg Q4H PRN ORAL T>100.5 04/12/17 21:45 05/12/17 21:44 04/16/17 01:23 Acetaminophen/ Hydrocodone Bitart ([place] 5/325) 1 tab Q4H PRN ORAL Severe Pain (Pain Scale 7-10) 04/12/17 21:00 04/19/17 20:59 04/16/17 09:35 Albuterol/ Ipratropium (DuoNeb 0.5-3(2.5)mg/3ml) 3 ml Q4H PRN HHN Shortness of Breath 04/15/17 13:45 04/20/17 13:44 Amlodipine Besylate (Norvasc) 2.5 mg DAILY ORAL 04/16/17 09:00 05/16/17 08:59 04/16/17 09:35 Atorvastatin Calcium (Lipitor) 80 mg BEDTIME ORAL 04/12/17 21:00 05/12/17 20:59 04/15/17 20:16 Ceftriaxone Sodium/Dextrose (Rocephin/D5W) 110 ml @ 220 mls/hr Q24H IVPB 04/13/17 21:00 04/20/17 20:59 04/15/17 20:17 Chlorhexidine Gluconate (Rosie-Hex 2%) 1 applic QHS TOPIC 04/12/17 22:00 05/12/17 21:59 04/15/17 20:16 Clonidine HCl (Catapres) 0.1 mg Q4H PRN ORAL for BP over 160 syst 04/15/17 11:00 05/15/17 10:59 Dextrose (Dextrose 50%) STAT PRN IV Hypoglycemia 04/12/17 21:45 05/12/17 21:44 Diphenhydramine HCl (Benadryl) 25 mg TIDPRN PRN ORAL Itching 04/12/17 21:00 05/12/17 20:59 Docusate Sodium (Colace) 100 mg TWICE A DAY ORAL 04/13/17 09:00 05/13/17 08:59 04/16/17 09:35 Escitalopram Oxalate (Lexapro) 5 mg DAILY ORAL 04/13/17 09:00 05/13/17 08:59 04/16/17 09:35 Gabapentin (Neurontin) 100 mg QHS ORAL 04/12/17 22:00 05/12/17 21:59 04/15/17 20:16 Heparin Sodium (Porcine) (Heparin 5000 units/ml) 5,000 units EVERY 12 HOURS SUBQ 04/12/17 22:00 05/12/17 21:59 04/16/17 09:36 Insulin Aspart (NovoLOG) BEFORE MEALS AND HS SUBQ 04/12/17 22:00 05/12/17 21:59 04/15/17 20:27 Lorazepam (Ativan 2mg/ml 1ml) 0.5 mg Q4H PRN IV For Anxiety 04/12/17 21:45 04/19/17 21:44 Methocarbamol (Robaxin) 500 mg Q8H PRN ORAL muscle spasm 04/12/17 21:00 05/12/17 20:59 Morphine Sulfate (Morphine Sulfate) 2 mg Q4H PRN IVP Moderate Pain (Pain Scale 4-6) 04/12/17 21:45 04/19/17 21:44 04/16/17 05:26 Morphine Sulfate (Morphine Sulfate) 4 mg Q4H PRN IVP breakthrough Pain 04/12/17 21:45 04/19/17 21:44 Multivitamins (Multivitamins) 1 tab DAILY ORAL 04/13/17 09:00 05/13/17 08:59 04/16/17 09:34 Ondansetron HCl (Zofran) 4 mg Q6H PRN IVP Nausea & Vomiting 04/12/17 21:45 05/12/17 21:44 04/16/17 09:57 Pantoprazole (Protonix) 40 mg DAILY ORAL 04/13/17 09:00 05/13/17 08:59 04/16/17 09:34 Polyethylene Glycol (Miralax) 17 gm HSPRN PRN ORAL Constipation 04/12/17 21:45 05/12/17 21:44 04/13/17 20:34 Sevelamer Carbonate (Renvela) 800 mg THREE TIMES A DAY ORAL 04/13/17 09:00 05/13/17 08:59 04/16/17 13:21 Zolpidem Tartrate 5 mg 5 mg HSPRN PRN ORAL Insomnia 04/12/17 21:45 05/12/17 21:44 Jason Alvarado M.D. Apr 16, 2017 13:51
[2017-04-16] MEDS ORDERED: CEFDINIR300 MG PO (13:53)
--- NOTE | 2017-04-16 15:12 | General Progress Note ---
Assessment/Plan Assessment/Plan (1) Lumbar DDD (2) Lumbar Spondylosis (3) Lumbar Radiculopathy (4) Muscle spasm (5) ESRD on dialysis We will continue Morphine and [place] as needed. D/w Dr. Oliveira and he concurred. Subjective Date patient seen: Apr 16, 2017 Time patient seen: 02:00 - pm Constitutional: Reports: weakness HEENT: Reports: no symptoms Cardiovascular: Reports: no symptoms Respiratory: Reports: no symptoms Gastrointestinal/Abdominal: Reports: no symptoms Genitourinary: Reports: no symptoms Neurologic/Psychiatric: Reports: weakness Endocrine: Reports: no symptoms Hematologic/Lymphatic: Reports: no symptoms Allergies: Coded Allergies: No Known Allergies (Unverified , 04/10/17) Subjective Pt states that the pain has been well tolerated on the [place] as needed reducing pain from an 8/10 to a 4/10. Objective Last 24 Hour Vital Signs Date Time Temp Pulse Resp B/P Pulse Ox O2 Delivery O2 Flow Rate FiO2 04/16/17 12:05 99.0 80 18 115/51 98 04/16/17 09:35 73 147/76 04/16/17 08:20 98.1 73 16 147/76 97 Room Air 04/16/17 05:56 98.2 04/16/17 04:00 98.2 78 20 141/75 95 Room Air 04/16/17 02:00 98.6 04/16/17 00:00 98.6 75 20 138/72 97 Room Air 04/15/17 22:17 84 16 Room Air 21 04/15/17 20:00 99.5 80 20 143/77 97 Room Air 04/15/17 19:53 98.4 04/15/17 15:48 98.4 79 19 136/64 96 Room Air Intake and Output 04/15/17 04/16/17 19:00 07:00 Intake Total 720 ml Output Total 20 ml Balance 700 ml Intake Oral 720 ml Output Urine Total 20 ml # Voids 2 Laboratory Tests 04/15/17 16:56: Sodium Level 134L, Potassium Level 4.8, Chloride Level 96L, Carbon Dioxide Level 25, Anion Gap 13, Blood Urea Nitrogen 31H, Creatinine 5.4H, Estimat Glomerular Filtration Rate 9.6, Glucose Level 143H, Calcium Level 8.5L, Total Bilirubin 0.2, Aspartate Amino Transf (AST/SGOT) 47H, Alanine Aminotransferase ( ALT/SGPT) 31, Alkaline Phosphatase 168H, Total Protein 6.2L, Albumin 3.3L, Globulin 2.9, Albumin/Globulin Ratio 1.1, Lipase 16 // 06:30: White Blood Count 14.6H, Red Blood Count 2.76L, Hemoglobin 9.2L, Hematocrit 28.5L, Mean Corpuscular Volume 103H, Mean Corpuscular Hemoglobin 33.2H, Mean Corpuscular Hemoglobin Concent 32.2, Red Cell Distribution Width 15.0H, Platelet Count 199, Mean Platelet Volume 7.2, Neutrophils (%) (Auto) 65.1, Lymphocytes (%) (Auto) 19.1L, Monocytes (%) (Auto) 12.0H, Eosinophils (%) (Auto ) 2.6, Basophils (%) (Auto) 1.1 Height (Feet): 5 Height (Inches): 2.00 Weight (Pounds): 171 Objective General Appearance: no apparent distress, alert EENT: PERRL/EOMI, normal ENT inspection Neck: normal alignment, supple Cardiovascular: normal rate, regular rhythm Respiratory/Chest: lungs clear, normal breath sounds Abdomen: non tender, soft Extremities: non-tender Edema: trace edema Neurologic: alert, oriented x 3 Skin: warm/dry PATSY MORRISON PHi Apr 16, 2017 15:12
[2017-04-16 16:00] VITALS: BP 128/77
[2017-04-16 20:00] VITALS: BP 153/75
[2017-04-16] MEDS: cefTRIAXone 2 GM in D5W 110 ML IVPB SCH (21:00)
[2017-04-16] MEDS: Atorvastatin 80mg tab ORAL SCH (21:00)
[2017-04-16] MEDS: Dyna-Hex 2% Top Sol 8oz TOPIC SCH (21:00)
[2017-04-17] VITALS: BP 152/80
[2017-04-17 04:00] VITALS: BP 154/98
[2017-04-17 06:22] LABS: BASOPHILS % (AUTO) 1.4 % (0.0-2.0); EOSINOPHILS % (AUTO) 2.8 % (0.0-3.0); LYMPHOCYTES % (AUTO) 22.4 % (20.0-45.0); MEAN CORPUSCULAR HGB CONC 32.9 G/DL (32.0-36.0); MEAN CORPUSCULAR VOLUME 103 FL (80-99); MEAN PLATELET VOLUME 7.5 FL (6.5-10.1); MONOCYTES % (AUTO) 13.2 % (1.0-10.0); NEUTROPHILS % (AUTO) 60.1 % (45.0-75.0); PLATELET COUNT 208 K/UL (150-450); RED BLOOD COUNT 2.84 M/UL (4.20-5.40); RED CELL DISTRIBUTION WIDTH 14.9 % (11.6-14.8); WHITE BLOOD COUNT 9.7 K/UL (4.8-10.8)
[2017-04-17] MEDS: NovoLOG Insulin Flexpen SUBQ SCH ×4 (06:30→21:30)
[2017-04-17 06:58] LABS: CALCIUM 9.3 mg/dL (8.6-10.2); CREATININE 6.3 mg/dL (0.5-0.9); CRP QUANT 5.2 mg/dL (< 0.5); GLOMERULAR FILTRATION RATE 8.1 mL/min (>60); MAGNESIUM 2.1 mg/dL (1.7-2.5); PHOSPHORUS 4.5 mg/dL (2.5-4.8); POTASSIUM 4.9 mEQ/L (3.4-4.9); TOTAL PROTEIN 6.8 g/dL (6.6-8.7); URIC ACID 6.9 mg/dL (3.0-7.5)
[2017-04-17 08:00] VITALS: BP 145/68
--- NOTE | 2017-04-17 08:34 | General Progress Note ---
Assessment/Plan Assessment/Plan (1) Lumbar DDD (2) Lumbar Spondylosis (3) Lumbar Radiculopathy (4) Muscle spasm (5) ESRD on dialysis We will continue Morphine and [place] as needed. D/w Dr. Oliveira and he concurred. Subjective Date patient seen: Apr 17, 2017 Time patient seen: 07:30 - am Constitutional: Reports: weakness HEENT: Reports: no symptoms Cardiovascular: Reports: no symptoms Respiratory: Reports: no symptoms Gastrointestinal/Abdominal: Reports: no symptoms Genitourinary: Reports: no symptoms Neurologic/Psychiatric: Reports: no symptoms, weakness Endocrine: Reports: no symptoms Hematologic/Lymphatic: Reports: no symptoms Allergies: Coded Allergies: No Known Allergies (Unverified , 04/10/17) Subjective Pt reports that her pain has been stable and tolerated on the [place] reducing it from a 7/10 to a 3/10. Having dialysis at this time . Objective Last 24 Hour Vital Signs Date Time Temp Pulse Resp B/P Pulse Ox O2 Delivery O2 Flow Rate FiO2 04/17/17 04:00 97.5 84 20 154/98 98 Room Air 04/17/17 00:00 98.2 74 20 152/80 96 Room Air 04/16/17 20:00 98.1 82 20 153/75 97 Room Air 04/16/17 16:00 98.7 66 18 128/77 97 Room Air 04/16/17 12:05 99.0 80 18 115/51 98 04/16/17 09:35 73 147/76 Intake and Output 04/16/17 04/17/17 19:00 07:00 Intake Total 1240 ml 1020 ml Output Total 200 ml Balance 1040 ml 1020 ml Intake Oral 1240 ml 800 ml IV Total 220 ml Output Urine Total 200 ml # Voids 2 4 # Bowel Movements 1 Laboratory Tests 04/17/17 04:40: White Blood Count 9.7, Red Blood Count 2.84L, Hemoglobin 9.6L, Hematocrit 29.3L , Mean Corpuscular Volume 103H, Mean Corpuscular Hemoglobin 34.0H, Mean Corpuscular Hemoglobin Concent 32.9, Red Cell Distribution Width 14.9H, Platelet Count 208, Mean Platelet Volume 7.5, Neutrophils (%) (Auto) 60.1, Lymphocytes (%) (Auto) 22.4, Monocytes (%) (Auto) 13.2H, Eosinophils (%) (Auto) 2.8, Basophils (%) (Auto) 1.4, Sodium Level 136, Potassium Level 4.9, Chloride Level 98, Carbon Dioxide Level 24, Anion Gap 14, Blood Urea Nitrogen 44H, Creatinine 6.3H, Estimat Glomerular Filtration Rate 8.1, Glucose Level 100, Uric Acid 6.9, Calcium Level 9.3, Phosphorus Level 4.5, Magnesium Level 2.1, Total Bilirubin 0.2, Gamma Glutamyl Transpeptidase 251H, Aspartate Amino Transf (AST/SGOT) 47H, Alanine Aminotransferase (ALT/SGPT) 40H, Alkaline Phosphatase 223H, C-Reactive Protein, Quantitative 5.2H, Pro-B-Type Natriuretic Peptide 6137H, Total Protein 6.8, Albumin 3.4L, Globulin 3.4, Albumin/Globulin Ratio 1.0 Height (Feet): 5 Height (Inches): 2.00 Weight (Pounds): 171 Objective General Appearance: no apparent distress, alert EENT: PERRL/EOMI, normal ENT inspection Neck: normal alignment, supple Cardiovascular: normal rate, regular rhythm Respiratory/Chest: lungs clear, normal breath sounds Abdomen: non tender, soft Extremities: non-tender Edema: trace edema Neurologic: alert, oriented x 3 Skin: warm/dry PATSY MORRISON PHi Apr 17, 2017 08:34
[2017-04-17] MEDS: Renvela 800mg Pkt ORAL SCH ×3 (10:56→17:34)
[2017-04-17] MEDS: Escitalopram Oxalate 5mg tab ORAL SCH (10:57)
[2017-04-17] MEDS: Docusate 100mg cap ORAL SCH ×2 (10:58→17:34)
[2017-04-17] MEDS: Heparin 5000 units/ml inj SUBQ SCH ×2 (11:01→21:29)
[2017-04-17 12:00] VITALS: BP 201/96
[2017-04-17] MEDS: Norco 5mg/325mg tab ORAL PRN ×2 (12:46→19:21)
--- NOTE | 2017-04-17 13:21 | Infectious Diseases Prog Note ---
Assessment/Plan Assessment/Plan A; Sepsis UTI ESRD on HD DM HPN Anemia P; Continue Rocephin in hospital in case of discharge Po Keflex 500 mg daily X 4 days Subjective ROS Limited/Unobtainable: Yes Constitutional: Reports: other - dosen't feel good Allergies: Coded Allergies: No Known Allergies (Unverified , 04/10/17) Objective Vital Signs Last 24 Hour Vital Signs Date Time Temp Pulse Resp B/P Pulse Ox O2 Delivery O2 Flow Rate FiO2 04/17/17 13:03 201/96 04/17/17 12:00 98.4 106 16 201/96 100 Room Air 04/17/17 11:04 79 159/73 04/17/17 10:45 Room Air 04/17/17 08:00 97.1 76 16 145/68 98 Room Air 04/17/17 07:40 Room Air 04/17/17 04:00 97.5 84 20 154/98 98 Room Air 04/17/17 00:00 98.2 74 20 152/80 96 Room Air 04/16/17 20:00 98.1 82 20 153/75 97 Room Air 04/16/17 16:00 98.7 66 18 128/77 97 Room Air Height (Feet): 5 Height (Inches): 2.00 Weight (Pounds): 170 HEENT: mucous membranes moist Respiratory/Chest: lungs clear Cardiovascular: tachycardia, systolic murmur, other - Perma-cath Abdomen: soft, non tender Extremities: no edema Neurologic/Psychiatric: alert, responsive, other - drowsy Laboratory Tests Test 04/17/17 04:40 White Blood Count 9.7 K/UL (4.8-10.8) Red Blood Count 2.84 M/UL (4.20-5.40) L Hemoglobin 9.6 G/DL (12.0-16.0) L Hematocrit 29.3 % (37.0-47.0) L Mean Corpuscular Volume 103 FL (80-99) H Mean Corpuscular Hemoglobin 34.0 PG (27.0-31.0) H Mean Corpuscular Hemoglobin Concent 32.9 G/DL (32.0-36.0) Red Cell Distribution Width 14.9 % (11.6-14.8) H Platelet Count 208 K/UL (150-450) Mean Platelet Volume 7.5 FL (6.5-10.1) Neutrophils (%) (Auto) 60.1 % (45.0-75.0) Lymphocytes (%) (Auto) 22.4 % (20.0-45.0) Monocytes (%) (Auto) 13.2 % (1.0-10.0) H Eosinophils (%) (Auto) 2.8 % (0.0-3.0) Basophils (%) (Auto) 1.4 % (0.0-2.0) Sodium Level 136 mEQ/L (135-145) Potassium Level 4.9 mEQ/L (3.4-4.9) Chloride Level 98 mEQ/L (98-107) Carbon Dioxide Level 24 mEQ/L (20-30) Anion Gap 14 (5-15) Blood Urea Nitrogen 44 mg/dL (7-23) H Creatinine 6.3 mg/dL (0.5-0.9) H Estimat Glomerular Filtration Rate 8.1 mL/min (>60) Glucose Level 100 mg/dL (74-106) Uric Acid 6.9 mg/dL (3.0-7.5) Calcium Level 9.3 mg/dL (8.6-10.2) Phosphorus Level 4.5 mg/dL (2.5-4.8) Magnesium Level 2.1 mg/dL (1.7-2.5) Total Bilirubin 0.2 mg/dL (0.0-1.2) Gamma Glutamyl Transpeptidase 251 U/L (5-36) H Aspartate Amino Transf (AST/SGOT) 47 U/L (5-40) H Alanine Aminotransferase (ALT/SGPT) 40 U/L (3-33) H Alkaline Phosphatase 223 U/L (35-104) H C-Reactive Protein, Quantitative 5.2 mg/dL (< 0.5) H Pro-B-Type Natriuretic Peptide 6137 pg/mL (0-125) H Total Protein 6.8 g/dL (6.6-8.7) Albumin 3.4 g/dL (3.5-5.2) L Globulin 3.4 g/dL Albumin/Globulin Ratio 1.0 (1.0-2.7) Current Medications Medications (Trade) Dose Ordered Sig/Edda Route PRN Reason Start Time Stop Time Status Last Admin Dose Admin Acetaminophen (Tylenol) 650 mg Q4H PRN ORAL T>100.5 04/12/17 21:45 05/12/17 21:44 04/16/17 01:23 Acetaminophen/ Hydrocodone Bitart ([place] 5/325) 1 tab Q4H PRN ORAL Severe Pain (Pain Scale 7-10) 04/12/17 21:00 04/19/17 20:59 04/17/17 12:46 Albuterol/ Ipratropium (DuoNeb 0.5-3(2.5)mg/3ml) 3 ml Q4H PRN HHN Shortness of Breath 04/15/17 13:45 04/20/17 13:44 Amlodipine Besylate (Norvasc) 2.5 mg DAILY ORAL 04/16/17 09:00 05/16/17 08:59 04/17/17 11:04 Atorvastatin Calcium (Lipitor) 80 mg BEDTIME ORAL 04/12/17 21:00 05/12/17 20:59 04/16/17 21:00 Ceftriaxone Sodium/Dextrose (Rocephin/D5W) 110 ml @ 220 mls/hr Q24H IVPB 04/13/17 21:00 04/20/17 20:59 04/16/17 21:00 Chlorhexidine Gluconate (Rosie-Hex 2%) 1 applic QHS TOPIC 04/12/17 22:00 05/12/17 21:59 04/16/17 21:00 Clonidine HCl (Catapres) 0.1 mg Q4H PRN ORAL for BP over 160 syst 04/15/17 11:00 05/15/17 10:59 04/17/17 13:03 Dextrose (Dextrose 50%) STAT PRN IV Hypoglycemia 04/12/17 21:45 05/12/17 21:44 Diphenhydramine HCl (Benadryl) 25 mg TIDPRN PRN ORAL Itching 04/12/17 21:00 05/12/17 20:59 Docusate Sodium (Colace) 100 mg TWICE A DAY ORAL 04/13/17 09:00 05/13/17 08:59 04/17/17 10:58 Escitalopram Oxalate (Lexapro) 5 mg DAILY ORAL 04/13/17 09:00 05/13/17 08:59 04/17/17 10:57 Gabapentin (Neurontin) 100 mg QHS ORAL 04/12/17 22:00 05/12/17 21:59 04/16/17 21:00 Heparin Sodium (Porcine) (Heparin 5000 units/ml) 5,000 units EVERY 12 HOURS SUBQ 04/12/17 22:00 05/12/17 21:59 04/17/17 11:01 Insulin Aspart (NovoLOG) BEFORE MEALS AND HS SUBQ 04/12/17 22:00 05/12/17 21:59 04/17/17 12:42 Lorazepam (Ativan 2mg/ml 1ml) 0.5 mg Q4H PRN IV For Anxiety 04/12/17 21:45 04/19/17 21:44 Methocarbamol (Robaxin) 500 mg Q8H PRN ORAL muscle spasm 04/12/17 21:00 05/12/17 20:59 Morphine Sulfate (Morphine Sulfate) 2 mg Q4H PRN IVP Moderate Pain (Pain Scale 4-6) 04/12/17 21:45 04/19/17 21:44 04/16/17 05:26 Morphine Sulfate (Morphine Sulfate) 4 mg Q4H PRN IVP breakthrough Pain 04/12/17 21:45 04/19/17 21:44 Multivitamins (Multivitamins) 1 tab DAILY ORAL 04/13/17 09:00 05/13/17 08:59 04/17/17 10:58 Ondansetron HCl (Zofran) 4 mg Q6H PRN IVP Nausea & Vomiting 04/12/17 21:45 05/12/17 21:44 04/16/17 09:57 Pantoprazole (Protonix) 40 mg DAILY ORAL 04/13/17 09:00 05/13/17 08:59 04/17/17 10:57 Polyethylene Glycol (Miralax) 17 gm HSPRN PRN ORAL Constipation 04/12/17 21:45 05/12/17 21:44 04/13/17 20:34 Sevelamer Carbonate (Renvela) 800 mg THREE TIMES A DAY ORAL 04/13/17 09:00 05/13/17 08:59 04/17/17 12:45 Zolpidem Tartrate 5 mg 5 mg HSPRN PRN ORAL Insomnia 04/12/17 21:45 05/12/17 21:44 FAVIAN ROSE 21, 2017 13:21
--- NOTE | 2017-04-17 13:46 | General Progress Note ---
Assessment/Plan Status: stable Assessment/Plan Status; ESRD on HD M W Fr UTI ? ??Line infection E coli urosepsis, patient subjectively feels improved no evidence of line infection at this time . Intractable back pain HypoTension on admit h/o Breast Ca s/p Chemo and left mastectomy Plan: HD today Per ID advise adjust BP meds- Per PMD , consultants ? DC Subjective ROS Limited/Unobtainable: No Allergies: Coded Allergies: No Known Allergies (Unverified , 04/10/17) Objective Last 24 Hour Vital Signs Date Time Temp Pulse Resp B/P Pulse Ox O2 Delivery O2 Flow Rate FiO2 04/17/17 13:03 201/96 04/17/17 12:00 98.4 106 16 201/96 100 Room Air 04/17/17 11:04 79 159/73 04/17/17 10:45 Room Air 04/17/17 08:00 97.1 76 16 145/68 98 Room Air 04/17/17 07:40 Room Air 04/17/17 04:00 97.5 84 20 154/98 98 Room Air 04/17/17 00:00 98.2 74 20 152/80 96 Room Air 04/16/17 20:00 98.1 82 20 153/75 97 Room Air 04/16/17 16:00 98.7 66 18 128/77 97 Room Air Intake and Output 04/16/17 04/17/17 19:00 07:00 Intake Total 1240 ml 1020 ml Output Total 200 ml Balance 1040 ml 1020 ml Intake Oral 1240 ml 800 ml IV Total 220 ml Output Urine Total 200 ml # Voids 2 4 # Bowel Movements 1 Laboratory Tests 04/17/17 04:40: White Blood Count 9.7, Red Blood Count 2.84L, Hemoglobin 9.6L, Hematocrit 29.3L , Mean Corpuscular Volume 103H, Mean Corpuscular Hemoglobin 34.0H, Mean Corpuscular Hemoglobin Concent 32.9, Red Cell Distribution Width 14.9H, Platelet Count 208, Mean Platelet Volume 7.5, Neutrophils (%) (Auto) 60.1, Lymphocytes (%) (Auto) 22.4, Monocytes (%) (Auto) 13.2H, Eosinophils (%) (Auto) 2.8, Basophils (%) (Auto) 1.4, Sodium Level 136, Potassium Level 4.9, Chloride Level 98, Carbon Dioxide Level 24, Anion Gap 14, Blood Urea Nitrogen 44H, Creatinine 6.3H, Estimat Glomerular Filtration Rate 8.1, Glucose Level 100, Uric Acid 6.9, Calcium Level 9.3, Phosphorus Level 4.5, Magnesium Level 2.1, Total Bilirubin 0.2, Gamma Glutamyl Transpeptidase 251H, Aspartate Amino Transf (AST/SGOT) 47H, Alanine Aminotransferase (ALT/SGPT) 40H, Alkaline Phosphatase 223H, C-Reactive Protein, Quantitative 5.2H, Pro-B-Type Natriuretic Peptide 6137H, Total Protein 6.8, Albumin 3.4L, Globulin 3.4, Albumin/Globulin Ratio 1.0 Height (Feet): 5 Height (Inches): 2.00 Weight (Pounds): 170 General Appearance: no apparent distress Objective no change in PE ROLANDO AN Apr 17, 2017 13:46
[2017-04-17 16:00] VITALS: BP 156/81
--- NOTE | 2017-04-17 16:12 | Pulmonology Progress Note ---
Assessment/Plan Problems: (1) Sepsis (2) UTI (urinary tract infection) (3) Hypotension (4) ESRF (end stage renal failure) (5) Low back pain (6) HTN (hypertension) Assessment/Plan pt didnt' get dialyze today afebile, wbc highe improivng continue abx GNR in urine med/surg pain management check cultures. Subjective ROS Limited/Unobtainable: No Constitutional: Reports: no symptoms HEENT: Repors: no symptoms Respiratory: Reports: no symptoms Allergies: Coded Allergies: No Known Allergies (Unverified , 04/10/17) Objective Last 24 Hour Vital Signs Date Time Temp Pulse Resp B/P Pulse Ox O2 Delivery O2 Flow Rate FiO2 04/17/17 13:45 97.1 04/17/17 13:03 201/96 04/17/17 12:00 98.4 106 16 201/96 100 Room Air 04/17/17 11:04 79 159/73 04/17/17 10:45 Room Air 04/17/17 08:00 97.1 76 16 145/68 98 Room Air 04/17/17 07:40 Room Air 04/17/17 04:00 97.5 84 20 154/98 98 Room Air 04/17/17 00:00 98.2 74 20 152/80 96 Room Air 04/16/17 20:00 98.1 82 20 153/75 97 Room Air Intake and Output 04/16/17 04/17/17 19:00 07:00 Intake Total 1240 ml 1020 ml Output Total 200 ml Balance 1040 ml 1020 ml Intake Oral 1240 ml 800 ml IV Total 220 ml Output Urine Total 200 ml # Voids 2 4 # Bowel Movements 1 General Appearance: WD/WN HEENT: normocephalic, atraumatic Respiratory/Chest: chest wall non-tender, lungs clear Breasts: no masses Cardiovascular: normal peripheral pulses, no JVD Abdomen: soft, non tender Genitourinary: normal external genitalia Extremities: no cyanosis 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, abnormal gait Lymphatic: no groin adenopathy Laboratory Tests 04/17/17 04:40: White Blood Count 9.7, Red Blood Count 2.84L, Hemoglobin 9.6L, Hematocrit 29.3L , Mean Corpuscular Volume 103H, Mean Corpuscular Hemoglobin 34.0H, Mean Corpuscular Hemoglobin Concent 32.9, Red Cell Distribution Width 14.9H, Platelet Count 208, Mean Platelet Volume 7.5, Neutrophils (%) (Auto) 60.1, Lymphocytes (%) (Auto) 22.4, Monocytes (%) (Auto) 13.2H, Eosinophils (%) (Auto) 2.8, Basophils (%) (Auto) 1.4, Sodium Level 136, Potassium Level 4.9, Chloride Level 98, Carbon Dioxide Level 24, Anion Gap 14, Blood Urea Nitrogen 44H, Creatinine 6.3H, Estimat Glomerular Filtration Rate 8.1, Glucose Level 100, Uric Acid 6.9, Calcium Level 9.3, Phosphorus Level 4.5, Magnesium Level 2.1, Total Bilirubin 0.2, Gamma Glutamyl Transpeptidase 251H, Aspartate Amino Transf (AST/SGOT) 47H, Alanine Aminotransferase (ALT/SGPT) 40H, Alkaline Phosphatase 223H, C-Reactive Protein, Quantitative 5.2H, Pro-B-Type Natriuretic Peptide 6137H, Total Protein 6.8, Albumin 3.4L, Globulin 3.4, Albumin/Globulin Ratio 1.0 Current Medications Medications (Trade) Dose Ordered Sig/Edda Route PRN Reason Start Time Stop Time Status Last Admin Dose Admin Acetaminophen (Tylenol) 650 mg Q4H PRN ORAL T>100.5 04/12/17 21:45 05/12/17 21:44 04/16/17 01:23 Acetaminophen/ Hydrocodone Bitart ([place] 5/325) 1 tab Q4H PRN ORAL Severe Pain (Pain Scale 7-10) 04/12/17 21:00 04/19/17 20:59 04/17/17 12:46 Albuterol/ Ipratropium (DuoNeb 0.5-3(2.5)mg/3ml) 3 ml Q4H PRN HHN Shortness of Breath 04/15/17 13:45 04/20/17 13:44 Amlodipine Besylate (Norvasc) 2.5 mg DAILY ORAL 04/16/17 09:00 05/16/17 08:59 04/17/17 11:04 Atorvastatin Calcium (Lipitor) 80 mg BEDTIME ORAL 04/12/17 21:00 05/12/17 20:59 04/16/17 21:00 Ceftriaxone Sodium/Dextrose (Rocephin/D5W) 110 ml @ 220 mls/hr Q24H IVPB 04/13/17 21:00 04/20/17 20:59 04/16/17 21:00 Chlorhexidine Gluconate (Rosie-Hex 2%) 1 applic QHS TOPIC 04/12/17 22:00 05/12/17 21:59 04/16/17 21:00 Clonidine HCl (Catapres) 0.1 mg Q4H PRN ORAL for BP over 160 syst 04/15/17 11:00 05/15/17 10:59 04/17/17 13:03 Dextrose (Dextrose 50%) STAT PRN IV Hypoglycemia 04/12/17 21:45 05/12/17 21:44 Diphenhydramine HCl (Benadryl) 25 mg TIDPRN PRN ORAL Itching 04/12/17 21:00 05/12/17 20:59 Docusate Sodium (Colace) 100 mg TWICE A DAY ORAL 04/13/17 09:00 05/13/17 08:59 04/17/17 10:58 Escitalopram Oxalate (Lexapro) 5 mg DAILY ORAL 04/13/17 09:00 05/13/17 08:59 04/17/17 10:57 Gabapentin (Neurontin) 100 mg QHS ORAL 04/12/17 22:00 05/12/17 21:59 04/16/17 21:00 Heparin Sodium (Porcine) (Heparin 5000 units/ml) 5,000 units EVERY 12 HOURS SUBQ 04/12/17 22:00 05/12/17 21:59 04/17/17 11:01 Insulin Aspart (NovoLOG) BEFORE MEALS AND HS SUBQ 04/12/17 22:00 05/12/17 21:59 04/17/17 12:42 Lorazepam (Ativan 2mg/ml 1ml) 0.5 mg Q4H PRN IV For Anxiety 04/12/17 21:45 04/19/17 21:44 Methocarbamol (Robaxin) 500 mg Q8H PRN ORAL muscle spasm 04/12/17 21:00 05/12/17 20:59 Morphine Sulfate (Morphine Sulfate) 2 mg Q4H PRN IVP Moderate Pain (Pain Scale 4-6) 04/12/17 21:45 04/19/17 21:44 04/16/17 05:26 Morphine Sulfate (Morphine Sulfate) 4 mg Q4H PRN IVP breakthrough Pain 04/12/17 21:45 04/19/17 21:44 Multivitamins (Multivitamins) 1 tab DAILY ORAL 04/13/17 09:00 05/13/17 08:59 04/17/17 10:58 Ondansetron HCl (Zofran) 4 mg Q6H PRN IVP Nausea & Vomiting 04/12/17 21:45 05/12/17 21:44 04/16/17 09:57 Pantoprazole (Protonix) 40 mg DAILY ORAL 04/13/17 09:00 05/13/17 08:59 04/17/17 10:57 Polyethylene Glycol (Miralax) 17 gm HSPRN PRN ORAL Constipation 04/12/17 21:45 05/12/17 21:44 04/13/17 20:34 Sevelamer Carbonate (Renvela) 800 mg THREE TIMES A DAY ORAL 04/13/17 09:00 05/13/17 08:59 04/17/17 12:45 Zolpidem Tartrate 5 mg 5 mg HSPRN PRN ORAL Insomnia 04/12/17 21:45 05/12/17 21:44 MICHAEL YEBOAH Apr 17, 2017 16:12
[2017-04-17 20:00] VITALS: BP 115/55
[2017-04-17] MEDS: Dyna-Hex 2% Top Sol 8oz TOPIC SCH (21:00)
[2017-04-17] MEDS: Atorvastatin 80mg tab ORAL SCH (21:26)
[2017-04-17] MEDS: cefTRIAXone 2 GM in D5W 110 ML IVPB SCH (21:46)
[2017-04-18] VITALS: BP 122/55
[2017-04-18 04:00] VITALS: BP 144/67
[2017-04-18] MEDS: Norco 5mg/325mg tab ORAL PRN ×2 (05:37→15:03)
[2017-04-18] MEDS: NovoLOG Insulin Flexpen SUBQ SCH ×2 (05:58→12:15)
[2017-04-18 08:00] VITALS: BP 130/63
--- NOTE | 2017-04-18 08:57 | General Progress Note ---
Assessment/Plan Assessment/Plan (1) Lumbar DDD (2) Lumbar Spondylosis (3) Lumbar Radiculopathy (4) Muscle spasm (5) ESRD on dialysis We will continue Morphine and Lomax as needed. D/w Dr. Oliveira and he concurred. Subjective Date patient seen: Apr 18, 2017 Time patient seen: 07:30 - am Constitutional: Reports: weakness HEENT: Reports: no symptoms Cardiovascular: Reports: no symptoms Respiratory: Reports: no symptoms Gastrointestinal/Abdominal: Reports: no symptoms Genitourinary: Reports: no symptoms Neurologic/Psychiatric: Reports: weakness Endocrine: Reports: no symptoms Hematologic/Lymphatic: Reports: no symptoms Allergies: Coded Allergies: No Known Allergies (Unverified , 04/10/17) Subjective Pt reports that her pain has been stable at a 6/10 tolerated on the Lomax as needed. Pt states she is feeling better. Objective Last 24 Hour Vital Signs Date Time Temp Pulse Resp B/P Pulse Ox O2 Delivery O2 Flow Rate FiO2 04/18/17 05:17 78 16 Room Air 21 04/18/17 04:00 97.6 75 20 144/67 94 Room Air 04/18/17 00:00 97.8 70 20 122/55 96 Room Air 04/17/17 20:00 97.6 86 20 115/55 95 Room Air 04/17/17 16:00 97.2 89 16 156/81 96 Room Air 04/17/17 13:45 97.1 04/17/17 13:03 201/96 04/17/17 12:00 98.4 106 16 201/96 100 Room Air 04/17/17 11:04 79 159/73 04/17/17 10:45 Room Air Intake and Output 04/17/17 04/18/17 19:00 07:00 Intake Total 1220 ml Output Total 2020 ml Balance -2020 ml 1220 ml Intake Oral 1000 ml IV Total 220 ml Hemodialysis UF 2020 ml # Voids 2 Height (Feet): 5 Height (Inches): 2.00 Weight (Pounds): 170 Objective General Appearance: no apparent distress, alert EENT: PERRL/EOMI, normal ENT inspection Neck: normal alignment, supple Cardiovascular: normal rate, regular rhythm Respiratory/Chest: lungs clear, normal breath sounds Abdomen: non tender, soft Extremities: non-tender Edema: trace edema Neurologic: alert, oriented x 3 Skin: warm/dry PATSY MORRISON Apr 18, 2017 08:57
[2017-04-18] MEDS: Docusate 100mg cap ORAL SCH (09:30)
[2017-04-18 09:31] VITALS: BP 130/63
[2017-04-18] MEDS: Escitalopram Oxalate 5mg tab ORAL SCH (09:31)
[2017-04-18] MEDS: Renvela 800mg Pkt ORAL SCH ×2 (09:31→13:46)
[2017-04-18] MEDS: Heparin 5000 units/ml inj SUBQ SCH (09:37)
--- NOTE | 2017-04-18 10:53 | General Progress Note ---
Assessment/Plan Status: stable Status Narrative stable- due DC today Assessment/Plan Status; ESRD on HD M W Fr UTI ? ??Line infection E coli urosepsis, patient subjectively feels improved no evidence of line infection at this time . Intractable back pain HypoTension on admit h/o Breast Ca s/p Chemo and left mastectomy Plan: HD yesterday Per ID advise adjust BP meds- Per PMD , consultants ? DC Subjective ROS Limited/Unobtainable: No Constitutional: Reports: malaise Allergies: Coded Allergies: No Known Allergies (Unverified , 04/10/17) Objective Last 24 Hour Vital Signs Date Time Temp Pulse Resp B/P Pulse Ox O2 Delivery O2 Flow Rate FiO2 04/18/17 09:31 79 130/63 04/18/17 08:00 96.4 79 20 130/63 100 Room Air 04/18/17 05:17 78 16 Room Air 21 04/18/17 04:00 97.6 75 20 144/67 94 Room Air 04/18/17 00:00 97.8 70 20 122/55 96 Room Air 04/17/17 20:00 97.6 86 20 115/55 95 Room Air 04/17/17 16:00 97.2 89 16 156/81 96 Room Air 04/17/17 13:45 97.1 04/17/17 13:03 201/96 04/17/17 12:00 98.4 106 16 201/96 100 Room Air 04/17/17 11:04 79 159/73 Intake and Output 04/17/17 04/18/17 19:00 07:00 Intake Total 1220 ml Output Total 2020 ml Balance -2020 ml 1220 ml Intake Oral 1000 ml IV Total 220 ml Hemodialysis UF 2020 ml # Voids 2 Height (Feet): 5 Height (Inches): 2.00 Weight (Pounds): 170 General Appearance: no apparent distress Objective no change in PE ROLANDO AN Apr 18, 2017 10:53
--- NOTE | 2017-04-18 13:19 | Infectious Diseases Prog Note ---
Assessment/Plan Assessment/Plan A; Sepsis UTI ESRD on HD DM HPN Anemia P; Continue Rocephin in hospital in case of discharge Po Keflex 500 mg daily X 3 days Subjective ROS Limited/Unobtainable: No Respiratory: Reports: no symptoms Gastrointestinal/Abdominal: Reports: no symptoms Genitourinary: Reports: no symptoms Allergies: Coded Allergies: No Known Allergies (Unverified , 04/10/17) Objective Vital Signs Last 24 Hour Vital Signs Date Time Temp Pulse Resp B/P Pulse Ox O2 Delivery O2 Flow Rate FiO2 04/18/17 09:31 79 130/63 04/18/17 08:00 96.4 79 20 130/63 100 Room Air 04/18/17 05:17 78 16 Room Air 21 04/18/17 04:00 97.6 75 20 144/67 94 Room Air 04/18/17 00:00 97.8 70 20 122/55 96 Room Air 04/17/17 20:00 97.6 86 20 115/55 95 Room Air 04/17/17 16:00 97.2 89 16 156/81 96 Room Air 04/17/17 13:45 97.1 Height (Feet): 5 Height (Inches): 2.00 Weight (Pounds): 170 General Appearance: no acute distress HEENT: mucous membranes moist Respiratory/Chest: lungs clear Cardiovascular: normal rate, regular rhythm, other - right Permacath Abdomen: soft, non tender Extremities: no edema Neurologic/Psychiatric: alert, oriented x 3, responsive Current Medications Medications (Trade) Dose Ordered Sig/Edda Route PRN Reason Start Time Stop Time Status Last Admin Dose Admin Acetaminophen (Tylenol) 650 mg Q4H PRN ORAL T>100.5 04/12/17 21:45 05/12/17 21:44 04/16/17 01:23 Acetaminophen/ Hydrocodone Bitart ([place] 5/325) 1 tab Q4H PRN ORAL Severe Pain (Pain Scale 7-10) 04/12/17 21:00 04/19/17 20:59 04/18/17 05:37 Albuterol/ Ipratropium (DuoNeb 0.5-3(2.5)mg/3ml) 3 ml Q4H PRN HHN Shortness of Breath 04/15/17 13:45 04/20/17 13:44 Amlodipine Besylate (Norvasc) 2.5 mg DAILY ORAL 04/16/17 09:00 05/16/17 08:59 04/18/17 09:31 Atorvastatin Calcium (Lipitor) 80 mg BEDTIME ORAL 04/12/17 21:00 05/12/17 20:59 04/17/17 21:26 Ceftriaxone Sodium/Dextrose (Rocephin/D5W) 110 ml @ 220 mls/hr Q24H IVPB 04/13/17 21:00 04/20/17 20:59 04/17/17 21:46 Chlorhexidine Gluconate (Rosie-Hex 2%) 1 applic QHS TOPIC 04/12/17 22:00 05/12/17 21:59 04/16/17 21:00 Clonidine HCl (Catapres) 0.1 mg Q4H PRN ORAL for BP over 160 syst 04/15/17 11:00 05/15/17 10:59 04/17/17 13:03 Dextrose (Dextrose 50%) STAT PRN IV Hypoglycemia 04/12/17 21:45 05/12/17 21:44 Diphenhydramine HCl (Benadryl) 25 mg TIDPRN PRN ORAL Itching 04/12/17 21:00 05/12/17 20:59 Docusate Sodium (Colace) 100 mg TWICE A DAY ORAL 04/13/17 09:00 05/13/17 08:59 04/18/17 09:30 Escitalopram Oxalate (Lexapro) 5 mg DAILY ORAL 04/13/17 09:00 05/13/17 08:59 04/18/17 09:31 Gabapentin (Neurontin) 100 mg QHS ORAL 04/12/17 22:00 05/12/17 21:59 04/17/17 21:27 Heparin Sodium (Porcine) (Heparin 5000 units/ml) 5,000 units EVERY 12 HOURS SUBQ 04/12/17 22:00 05/12/17 21:59 04/18/17 09:37 Insulin Aspart (NovoLOG) BEFORE MEALS AND HS SUBQ 04/12/17 22:00 05/12/17 21:59 04/18/17 12:15 Lorazepam (Ativan 2mg/ml 1ml) 0.5 mg Q4H PRN IV For Anxiety 04/12/17 21:45 04/19/17 21:44 Methocarbamol (Robaxin) 500 mg Q8H PRN ORAL muscle spasm 04/12/17 21:00 05/12/17 20:59 Morphine Sulfate (Morphine Sulfate) 2 mg Q4H PRN IVP Moderate Pain (Pain Scale 4-6) 04/12/17 21:45 04/19/17 21:44 04/16/17 05:26 Morphine Sulfate (Morphine Sulfate) 4 mg Q4H PRN IVP breakthrough Pain 04/12/17 21:45 04/19/17 21:44 Multivitamins (Multivitamins) 1 tab DAILY ORAL 04/13/17 09:00 05/13/17 08:59 04/18/17 09:31 Ondansetron HCl (Zofran) 4 mg Q6H PRN IVP Nausea & Vomiting 04/12/17 21:45 05/12/17 21:44 04/17/17 19:21 Pantoprazole (Protonix) 40 mg DAILY ORAL 04/13/17 09:00 05/13/17 08:59 04/18/17 09:31 Polyethylene Glycol (Miralax) 17 gm HSPRN PRN ORAL Constipation 04/12/17 21:45 05/12/17 21:44 04/13/17 20:34 Sevelamer Carbonate (Renvela) 800 mg THREE TIMES A DAY ORAL 04/13/17 09:00 05/13/17 08:59 04/18/17 09:31 Zolpidem Tartrate 5 mg 5 mg HSPRN PRN ORAL Insomnia 04/12/17 21:45 05/12/17 21:44 FAVIAN ROSE Apr 18, 2017 13:19
--- NOTE | 2017-04-18 14:16 | Pulmonology Progress Note ---
Assessment/Plan Problems: (1) Sepsis (2) UTI (urinary tract infection) (3) Hypotension (4) ESRF (end stage renal failure) (5) Low back pain (6) HTN (hypertension) Assessment/Plan getting better afebile, wbc highe pain management dc home with outpatient HD Subjective ROS Limited/Unobtainable: No Constitutional: Reports: no symptoms HEENT: Repors: no symptoms Respiratory: Reports: no symptoms Allergies: Coded Allergies: No Known Allergies (Unverified , 04/10/17) Objective Last 24 Hour Vital Signs Date Time Temp Pulse Resp B/P Pulse Ox O2 Delivery O2 Flow Rate FiO2 04/18/17 09:31 79 130/63 04/18/17 08:00 96.4 79 20 130/63 100 Room Air 04/18/17 05:17 78 16 Room Air 21 04/18/17 04:00 97.6 75 20 144/67 94 Room Air 04/18/17 00:00 97.8 70 20 122/55 96 Room Air 04/17/17 20:00 97.6 86 20 115/55 95 Room Air 04/17/17 16:00 97.2 89 16 156/81 96 Room Air Intake and Output 04/17/17 04/18/17 19:00 07:00 Intake Total 1220 ml Output Total 2020 ml Balance -2020 ml 1220 ml Intake Oral 1000 ml IV Total 220 ml Hemodialysis UF 2020 ml # Voids 2 General Appearance: WD/WN HEENT: normocephalic, atraumatic Respiratory/Chest: chest wall non-tender, lungs clear Cardiovascular: normal peripheral pulses, normal rate Abdomen: normal bowel sounds, no organomegaly Extremities: no clubbing Skin: no rash Current Medications Medications (Trade) Dose Ordered Sig/Edda Route PRN Reason Start Time Stop Time Status Last Admin Dose Admin Acetaminophen (Tylenol) 650 mg Q4H PRN ORAL T>100.5 04/12/17 21:45 05/12/17 21:44 04/16/17 01:23 Acetaminophen/ Hydrocodone Bitart ([place] 5/325) 1 tab Q4H PRN ORAL Severe Pain (Pain Scale 7-10) 04/12/17 21:00 04/19/17 20:59 04/18/17 05:37 Albuterol/ Ipratropium (DuoNeb 0.5-3(2.5)mg/3ml) 3 ml Q4H PRN HHN Shortness of Breath 04/15/17 13:45 04/20/17 13:44 Amlodipine Besylate (Norvasc) 2.5 mg DAILY ORAL 04/16/17 09:00 05/16/17 08:59 04/18/17 09:31 Atorvastatin Calcium (Lipitor) 80 mg BEDTIME ORAL 04/12/17 21:00 05/12/17 20:59 04/17/17 21:26 Ceftriaxone Sodium/Dextrose (Rocephin/D5W) 110 ml @ 220 mls/hr Q24H IVPB 04/13/17 21:00 04/20/17 20:59 04/17/17 21:46 Chlorhexidine Gluconate (Rosie-Hex 2%) 1 applic QHS TOPIC 04/12/17 22:00 05/12/17 21:59 04/16/17 21:00 Clonidine HCl (Catapres) 0.1 mg Q4H PRN ORAL for BP over 160 syst 04/15/17 11:00 05/15/17 10:59 04/17/17 13:03 Dextrose (Dextrose 50%) STAT PRN IV Hypoglycemia 04/12/17 21:45 05/12/17 21:44 Diphenhydramine HCl (Benadryl) 25 mg TIDPRN PRN ORAL Itching 04/12/17 21:00 05/12/17 20:59 Docusate Sodium (Colace) 100 mg TWICE A DAY ORAL 04/13/17 09:00 05/13/17 08:59 04/18/17 09:30 Escitalopram Oxalate (Lexapro) 5 mg DAILY ORAL 04/13/17 09:00 05/13/17 08:59 04/18/17 09:31 Gabapentin (Neurontin) 100 mg QHS ORAL 04/12/17 22:00 05/12/17 21:59 04/17/17 21:27 Heparin Sodium (Porcine) (Heparin 5000 units/ml) 5,000 units EVERY 12 HOURS SUBQ 04/12/17 22:00 05/12/17 21:59 04/18/17 09:37 Insulin Aspart (NovoLOG) BEFORE MEALS AND HS SUBQ 04/12/17 22:00 05/12/17 21:59 04/18/17 12:15 Lorazepam (Ativan 2mg/ml 1ml) 0.5 mg Q4H PRN IV For Anxiety 04/12/17 21:45 04/19/17 21:44 Methocarbamol (Robaxin) 500 mg Q8H PRN ORAL muscle spasm 04/12/17 21:00 05/12/17 20:59 Morphine Sulfate (Morphine Sulfate) 2 mg Q4H PRN IVP Moderate Pain (Pain Scale 4-6) 04/12/17 21:45 04/19/17 21:44 04/16/17 05:26 Morphine Sulfate (Morphine Sulfate) 4 mg Q4H PRN IVP breakthrough Pain 04/12/17 21:45 04/19/17 21:44 Multivitamins (Multivitamins) 1 tab DAILY ORAL 04/13/17 09:00 05/13/17 08:59 04/18/17 09:31 Ondansetron HCl (Zofran) 4 mg Q6H PRN IVP Nausea & Vomiting 04/12/17 21:45 05/12/17 21:44 04/17/17 19:21 Pantoprazole (Protonix) 40 mg DAILY ORAL 04/13/17 09:00 05/13/17 08:59 04/18/17 09:31 Polyethylene Glycol (Miralax) 17 gm HSPRN PRN ORAL Constipation 04/12/17 21:45 05/12/17 21:44 04/13/17 20:34 Sevelamer Carbonate (Renvela) 800 mg THREE TIMES A DAY ORAL 04/13/17 09:00 05/13/17 08:59 04/18/17 13:46 Zolpidem Tartrate 5 mg 5 mg HSPRN PRN ORAL Insomnia 04/12/17 21:45 05/12/17 21:44 MICHAEL YEBOAH Apr 18, 2017 14:16
[2017-04-18] MEDS ORDERED: NS 275ml ONE (14:32)
[2017-04-18] MEDS ORDERED: NOVOLOG100 UNITS1 (15:37)
[2017-04-18] MEDS ORDERED: CEPHALEXIN500 MG ORAL (15:38)
--- NOTE | 2017-04-20 15:05 | Discharge Summary ---
Discharge Summary Hospital Course Date of Admission Apr 10, 2017 at 21:30 Date of Discharge Apr 18, 2017 at 16:15 Admitting Diagnosis SEPSIS HPI Mikie Villagomez is a 67 year old female who was admitted on Apr 10, 2017 at 21: 30 for Sepsis Hospital Course [id number] Discharge Discharge Disposition Patient was discharged to Home (01) Discharge Diagnoses: Sravanthi Fay NP Apr 20, 2017 15:05
--- NOTE | 2017-04-21 06:46 | Discharge Summary 2 SIG ---
DATE OF ADMISSION: 04/10/2017 DATE OF DISCHARGE: 04/18/2017 CONSULTANTS: 1. Mike Bridges M.D. 2. Soraida Oliveira M.D. 3. Jason Alvarado M.D. BRIEF HOSPITAL COURSE: The patient is a 67-year-old female with history of end-stage renal failure, on hemodialysis and hypertension, who was brought in from hemodialysis center due to urinary incontinence and back pain that started after dialysis. On evaluation at ED, labs showed no leukocytosis with normal potassium and low anion gap. She had dysuria and urinalysis showing infection. She became hypotensive after IV vancomycin. Hypotension responded with IV fluid resuscitation. She was then admitted to medical floor for sepsis, urinary tract infection, renal failure, and back pain. She was pancultured. The patient was given Zosyn and vancomycin renally dosed. She was given pain management consisting of morphine and [place] with Robaxin p.r.n. muscle spasms. The patient had worsening leukocytosis. Urine culture showed E. coli. Zosyn and vancomycin was discontinued on day #3 and was started on ceftriaxone 2 g IV. Renal ultrasound was negative for perinephric abscess, but there was presence of a 3 cm circumcised focus on the left kidney. Abdominal CT showed no definite left renal abnormality to correspond abnormality seen on renal ultrasound. Blood cultures did not isolate any growth. The patient subjectively felt improved with no evidence of line infection. She was eventually discharged to home to continue outpatient hemodialysis. She was then discharged home. FINAL DIAGNOSES: 1. Sepsis. 2. Urinary tract infection. 3. End-stage renal failure. 4. Hypertension with episodes of hypotension. 5. Escherichia coli urinary tract infection. 6. Intractable back pain. 7. History of breast cancer, status post chemotherapy and left mastectomy. 8. Lumbar degenerative disk disease. 9. Lumbar spondylosis and lumbar radiculopathy. 10. Possible aspiration after episode of vomiting. 11. Constipation. 12. Diabetes mellitus. 13. Anemia of chronic disease. DISPOSITION: The patient was discharged home to continue with outpatient hemodialysis. DISCHARGE MEDICATIONS: Refer to med list. Continue p.o. antibiotics. Follow up with PMD in a week. Activity as tolerated. Larry Ko M.D. I have been assigned to dictate discharge summary on this account and I was not involved in the patient's management. Sravanthi Fay N.P. DR: OTTONIEL JOB#: [id number] CC: ANTOINE
== END 2017-04-18 16:15 | disposition home or self-care (01) | DRG 871 ==
LOC: EDBD 15:07 → EMR 15:40 → EDBD 15:40 → 2E 21:30 → EDBEDREQ 21:52 → 4E 04-12 21:03
PROC: 5A1D60Z (ICD-10-PCS; principal; 2017-04-12)
DX: A41.9 Sepsis, unspecified organism (principal); N18.6 End stage renal disease; I12.0 Hypertensive chronic kidney disease with stage 5 chronic kidney disease or end stage renal disease; N39.0 Urinary tract infection, site not specified; R13.10 Dysphagia, unspecified; E11.9 Type 2 diabetes mellitus without complications; B96.20 Unspecified Escherichia coli [E. coli] as the cause of diseases classified elsewhere; D63.8 Anemia in other chronic diseases classified elsewhere; Z99.2 Dependence on renal dialysis; Z85.3 Personal history of malignant neoplasm of breast; M51.16 Intervertebral disc disorders with radiculopathy, lumbar region; M43.06 Spondylolysis, lumbar region; K59.00 Constipation, unspecified; I25.10 Atherosclerotic heart disease of native coronary artery without angina pectoris; Z90.12 Acquired absence of left breast and nipple; M62.838 Other muscle spasm
CPT/HCPCS: 36415; 51701; 71010; 72110; 74020; 74176; 76775; 80048; 80053; 80061; 80202; 81003; 82270; 82378; 82550; 82607; 82728; 82746; 82962; 82977; 83036; 83540; 83550; 83605; 83615; 83690; 83735; 83880; 84100; 84443; 84550; 85007; 85025; 85044; 85060; 85610; 85651; 85730; 86140; 87040; 87081; 87086; 87181; 93005; 94664; J1815; J2405